=== PATIENT | male | born 1950 | race Caucasian/White ===

== ENCOUNTER 2016-12-02 10:16 | Inpatient (IN) ==
[2016-12-02] MEDS ORDERED: Pantoprazole 80 MG in 0.9 % Sodium Chloride 50 ML IVPB ONE (10:23)
[2016-12-02] MEDS ORDERED: 0.9 % Sodium Chloride 1,000 ML IVC ONE ×2 (10:23→11:08)
[2016-12-02] MEDS ORDERED: Lidocaine -MPF 1% 2 ML VIAL ONE (10:38)
[2016-12-02] MEDS: Pantoprazole 40 MG in 0.9 % Sodium Chloride Mini Bag 100 ML IVC SCH ×3 (11:01→21:12)
--- NOTE | 2016-12-02 11:09 | Emergency Department Note ---
Disposition Clinical Impression: Elevated serum lactate dehydrogenase, Anemia, Hypotension, Transaminitis Disposition: Admitted As Inpatient Condition: Critical General Adult HPI - General Chief complaint: ED GI Bleed Stated complaint: hypotensive, low SPO2 Time Seen by Provider: 12/02/16 10:21 Source: patient, EMS Limitations: no limitations - History of Present Illness Pain Scale: 9 - Related Data Home Medications Medication Instructions Recorded Confirmed Aspirin [Lo-Dose Aspirin EC] 81 mg PO DAILY 12/02/16 12/02/16 Citalopram Hydrobromide [Celexa] 20 mg PO DAILY 12/02/16 12/02/16 Ergocalciferol (VITAMIN D2) 50,000 unit PO QWEEK 12/02/16 12/02/16 [Vitamin D2] Furosemide [Lasix] 20 mg PO DAILY 12/02/16 12/02/16 Metoprolol [Lopressor] 50 mg PO BID 12/02/16 12/02/16 Mirtazapine 7.5 mg PO DAILY 12/02/16 12/02/16 Multivit-Min/FA/Lycopen/Lutein [A 1 tab PO DAILY 12/02/16 12/02/16 Thru Z Select Men 50+ Tablet] Nitroglycerin [Nitrostat] 0.4 mg SL Q5M PRN 12/02/16 12/02/16 Oxycodone HCl [Oxaydo] 5 mg PO TID PRN 12/02/16 12/02/16 Potassium Chloride [K-Tab ER] 20 meq PO BID 12/02/16 12/02/16 Rifaximin [Xifaxan] 550 mg PO BID 12/02/16 12/02/16 Spironolactone [Aldactone] 50 mg PO DAILY 12/02/16 12/02/16 Tamsulosin [Flomax] 0.4 mg PO DAILY 12/02/16 12/02/16 Allergies Allergy/AdvReac Type Severity Reaction Status Date / Time No Known Allergies Allergy Verified 12/02/16 10:38 Past Medical History - Past Medical History Medical history: Reports: non-contributory, cirrhosis Psychiatric history: Reports: no psych history - Social History Smoking Status: Current some day smoker Smokeless Tobacco Status: No Alcohol use: Reports: none Drug use: Reports: none Physical Exam - General Limitations: no limitations General appearance: alert Course Vital Signs Temperature 96.6 F L 12/02/16 10:19 Pulse Rate 139 12/02/16 10:19 Respiratory Rate 26 12/02/16 10:19 Blood Pressure 86/52 12/02/16 10:19 O2 Sat by Pulse Oximetry 85 12/02/16 10:19 Temperature 97.7 F 12/02/16 16:07 Pulse Rate 93 12/02/16 17:00 Respiratory Rate 16 12/02/16 17:00 Blood Pressure 111/70 12/02/16 17:00 O2 Sat by Pulse Oximetry 100 12/02/16 17:00 Oxygen Delivery Oxygen Delivery Non Rebreather Mask Medical Decision Making - Lab Data Result diagrams: 12/02/16 11:48 12/02/16 11:48 Lab Results 12/02/16 12/02/16 12/02/16 Range/Units 11:48 11:48 11:48 WBC 14.6 H (4.3-11.1) K/mcL RBC 2.35 L (4.19-5.50) M/mcL Hgb 6.9 L (12.9-16.9) g/dL Hct 21.9 L (37.5-50.1) % MCV 93.2 (83.0-100.0) fL MCH 29.4 (28.0-33.3) pg MCHC 31.5 L (31.6-35.5) g/dL RDW 15.9 H (11.5-14.5) % Plt Count 273 (140-400) K/mcL MPV 9.5 (9.4-12.4) fL Seg Neutrophils % 84.0 % Lymphocytes % 10.0 % Monocytes % 6.0 % Neutrophils # 12.3 H (1.6-8.9) K/mcL Lymphocytes # 1.5 (0.6-4.6) K/mcL Monocytes # 0.9 (0.0-1.3) K/mcL Smudge Cells Present A (Not Present) Platelet Estimate Normal (Normal) Anisocytosis 2+ A (Not Present) Microcytosis Present A (Not Present) PT 11.7 (9.4-12.1) Seconds INR 1.1 APTT 28.6 (26.0-36.0) Seconds Sodium 144 (136-145) mEq/L Potassium 4.4 (3.5-4.5) mEq/L Chloride 103 (98-109) mEq/L Carbon Dioxide 30 H (19-29) mEq/L BUN 88 H (8-26) mg/dL Creatinine 1.11 (0.72-1.25) mg/dL Est GFR ( Amer) > 60 (> 60) Est GFR (Non-Af Amer) > 60 (> 60) BUN/Creatinine Ratio 79 H (6-26) Glucose 128 H (70-99) mg/dL Calculated Osmolality 327 H (280-300) Lactic Acid (0.5-2.2) mmol/L Calcium 8.5 L (8.6-10.8) mg/dL Total Bilirubin 0.7 (0.2-1.2) mg/dL AST 77 H (5-34) Units/L ALT 70 H (0-55) Units/L Alkaline Phosphatase 288 H (38-126) Units/L Serum Total Protein 3.9 L (6.0-8.3) g/dL Albumin 1.7 L (3.5-5.0) g/dL Globulin 2.2 L (2.4-3.5) g/dL Albumin/Globulin Ratio 0.8 L (1.1-2.2) Lipase < 10 (8-78) Units/L Blood Type Antibody Screen Crossmatch 12/02/16 12/02/16 Range/Units 11:48 11:48 WBC (4.3-11.1) K/mcL RBC (4.19-5.50) M/mcL Hgb (12.9-16.9) g/dL Hct (37.5-50.1) % MCV (83.0-100.0) fL MCH (28.0-33.3) pg MCHC (31.6-35.5) g/dL RDW (11.5-14.5) % Plt Count (140-400) K/mcL MPV (9.4-12.4) fL Seg Neutrophils % % Lymphocytes % % Monocytes % % Neutrophils # (1.6-8.9) K/mcL Lymphocytes # (0.6-4.6) K/mcL Monocytes # (0.0-1.3) K/mcL Smudge Cells (Not Present) Platelet Estimate (Normal) Anisocytosis (Not Present) Microcytosis (Not Present) PT (9.4-12.1) Seconds INR APTT (26.0-36.0) Seconds Sodium (136-145) mEq/L Potassium (3.5-4.5) mEq/L Chloride (98-109) mEq/L Carbon Dioxide (19-29) mEq/L BUN (8-26) mg/dL Creatinine (0.72-1.25) mg/dL Est GFR ( Amer) (> 60) Est GFR (Non-Af Amer) (> 60) BUN/Creatinine Ratio (6-26) Glucose (70-99) mg/dL Calculated Osmolality (280-300) Lactic Acid 4.8 H* (0.5-2.2) mmol/L Calcium (8.6-10.8) mg/dL Total Bilirubin (0.2-1.2) mg/dL AST (5-34) Units/L ALT (0-55) Units/L Alkaline Phosphatase (38-126) Units/L Serum Total Protein (6.0-8.3) g/dL Albumin (3.5-5.0) g/dL Globulin (2.4-3.5) g/dL Albumin/Globulin Ratio (1.1-2.2) Lipase (8-78) Units/L Blood Type A POSITIVE Antibody Screen NEGATIVE Crossmatch See Detail Critical Care Time Critical Care Time: Yes Total Critical Care Time: 45 Attestation: Patient presented as a transfer from the OR with an upper GI bleed and hypotension. Central line placed by the resident physician under my supervision. IV Protonix and IV fluid resuscitation undertaken Attestation Statement - Attestation Attestation: I examined this patient and my medical decision-making was reviewed with the Resident Physician. I agree with the documented findings, disposition and treatment plan as described except to the extent set forth below. [id number]-[id number] time provided Patient arrives as a transfer from the [facility] with an upper GI bleed and hypotension. Poor peripheral access prehospital. Patient required the urgent placement of a triple lumen central catheter under my supervision by the resident physician.
[2016-12-02] MEDS ORDERED: 0.9 % Sodium Chloride 1,000 ML IVC SCH (11:15)
--- NOTE | 2016-12-02 11:57 | Emergency Department Note ---
Disposition Clinical Impression: Elevated serum lactate dehydrogenase, Transaminitis Anemia Qualifiers: Anemia type: unspecified type Qualified Code(s): D64.9 - Anemia, unspecified Hypotension Qualifiers: Hypotension type: other hypotension type Qualified Code(s): I95.89 - Other hypotension Disposition: Admitted As Inpatient Condition: Critical Time of Disposition: 17:57 General Adult HPI - General Chief complaint: ED GI Bleed Stated complaint: hypotensive, low SPO2 Time Seen by Provider: 12/02/16 10:21 Source: patient, EMS Limitations: no limitations Nursing Notes Reviewed: Yes Vital Signs Reviewed: Yes - History of Present Illness HPI Narrative: Mr. Guerin, a 66-year-old male, presents from the [place] [facility] for evaluation of coffee-ground emesis, hypotension, and hypoxia. [facility] and thus placed to intraosseous lines in the bilateral proximal tibia. Patient's blood pressure is 82 systolic on arrival. Patient had hematemesis for the last 3 days. Emesis is described as black fluid with red flecks. Patient is cachectic and frail. History of non-Hodgkin's lymphoma currently not on chemotherapy. History of alcohol-induced hepatic cirrhosis. History previous open heart surgery with sternotomy. ROS: Not obtainable due to acuity of patient's condition. Pain Scale: 9 - Related Data Home Medications Medication Instructions Recorded Confirmed Aspirin [Lo-Dose Aspirin EC] 81 mg PO DAILY 12/02/16 12/02/16 Citalopram Hydrobromide [Celexa] 20 mg PO DAILY 12/02/16 12/02/16 Ergocalciferol (VITAMIN D2) 50,000 unit PO QWEEK 12/02/16 12/02/16 [Vitamin D2] Furosemide [Lasix] 20 mg PO DAILY 12/02/16 12/02/16 Metoprolol [Lopressor] 50 mg PO BID 12/02/16 12/02/16 Mirtazapine 7.5 mg PO DAILY 12/02/16 12/02/16 Multivit-Min/FA/Lycopen/Lutein [A 1 tab PO DAILY 12/02/16 12/02/16 Thru Z Select Men 50+ Tablet] Nitroglycerin [Nitrostat] 0.4 mg SL Q5M PRN 12/02/16 12/02/16 Oxycodone HCl [Oxaydo] 5 mg PO TID PRN 12/02/16 12/02/16 Potassium Chloride [K-Tab ER] 20 meq PO BID 12/02/16 12/02/16 Rifaximin [Xifaxan] 550 mg PO BID 12/02/16 12/02/16 Spironolactone [Aldactone] 50 mg PO DAILY 12/02/16 12/02/16 Tamsulosin [Flomax] 0.4 mg PO DAILY 12/02/16 12/02/16 Allergies Allergy/AdvReac Type Severity Reaction Status Date / Time No Known Allergies Allergy Verified 12/02/16 10:38 Limitations: ROS unobtainable due to patients medical condition Past Medical History - Past Medical History Medical history: Reports: non-contributory, cirrhosis Psychiatric history: Reports: no psych history - Social History Smoking Status: Current some day smoker Smokeless Tobacco Status: No Alcohol use: Reports: none Drug use: Reports: none Physical Exam Vital Signs Reviewed General: Patient is alert, oriented, and in acute distress. Patient is frail and skeletonized, cachectic, appears older than stated age. HEENT: No facial asymmetry. Head is normocephalic and atraumatic. Oral mucosa dry. Goatee and teeth are stained black consistent with hematemesis. Bilateral radial and posterior tibial pulses 2/4 and equal. Cardiovascular: Heart regular rate and rhythm without clicks, rubs, gallops, or murmurs. No JVD. PMI nondisplaced. Respiratory: Symmetric chest rise with poor respiratory effort. Bilateral breath sounds are diminished. Abdomen: Scaphoid. Bowel sounds present normoactive. Abdomen is nondistended and nontender. No organomegaly noted. Neuro: GCS 15. Psych: Patient's affect is appropriate for situation. - General Limitations: no limitations General appearance: alert Course Course Narrative: The patient arrives via EMS hypoxic and hypotensive. He was placed on nonrebreather where his O2 saturation responded to the mid 90s. He has 2 [facility]. Our staff was unable to place peripheral lines. We utilized the intraosseous lines central venous line was placed. Verbal and written permission was obtained from the patient. Patient's son is bedside and relays a history of [place] status post CABG as well as alcohol induced cirrhosis as well as non-Hodgkin's lymphoma; both non-Hodgkin's lymphoma and hepatic cirrhosis are being currently worked up. Patient is full code. Right internal jugular venous catheter placed under ultrasound guidance. Patient's blood pressure responded nicely to 2-3 L normal saline bolus. No indication at this time for norepinephrine. Patient has elevated lactate. We will continue IV fluids. Patient has anemia with hemoglobin 6.9. Consent for transfusion obtained from the patient and his son. Will order 2 units. Recommend the patient be admitted to the intensive care unit. Attending spoke with Dr. Villalobos who agrees; patient is admitted to the ICU. Vital Signs Temperature 96.6 F L 12/02/16 10:19 Pulse Rate 139 12/02/16 10:19 Respiratory Rate 26 12/02/16 10:19 Blood Pressure 86/52 12/02/16 10:19 O2 Sat by Pulse Oximetry 85 12/02/16 10:19 Temperature 97.7 F 12/02/16 16:07 Pulse Rate 93 12/02/16 17:00 Respiratory Rate 16 12/02/16 17:00 Blood Pressure 111/70 12/02/16 17:00 O2 Sat by Pulse Oximetry 100 12/02/16 17:00 Oxygen Delivery Oxygen Delivery Non Rebreather Mask Medical Decision Making - Lab Data Result diagrams: 12/02/16 11:48 12/02/16 11:48 Lab Results 12/02/16 12/02/16 12/02/16 Range/Units 11:48 11:48 11:48 WBC 14.6 H (4.3-11.1) K/mcL RBC 2.35 L (4.19-5.50) M/mcL Hgb 6.9 L (12.9-16.9) g/dL Hct 21.9 L (37.5-50.1) % MCV 93.2 (83.0-100.0) fL MCH 29.4 (28.0-33.3) pg MCHC 31.5 L (31.6-35.5) g/dL RDW 15.9 H (11.5-14.5) % Plt Count 273 (140-400) K/mcL MPV 9.5 (9.4-12.4) fL Seg Neutrophils % 84.0 % Lymphocytes % 10.0 % Monocytes % 6.0 % Neutrophils # 12.3 H (1.6-8.9) K/mcL Lymphocytes # 1.5 (0.6-4.6) K/mcL Monocytes # 0.9 (0.0-1.3) K/mcL Smudge Cells Present A (Not Present) Platelet Estimate Normal (Normal) Anisocytosis 2+ A (Not Present) Microcytosis Present A (Not Present) PT 11.7 (9.4-12.1) Seconds INR 1.1 APTT 28.6 (26.0-36.0) Seconds Sodium 144 (136-145) mEq/L Potassium 4.4 (3.5-4.5) mEq/L Chloride 103 (98-109) mEq/L Carbon Dioxide 30 H (19-29) mEq/L BUN 88 H (8-26) mg/dL Creatinine 1.11 (0.72-1.25) mg/dL Est GFR ( Amer) > 60 (> 60) Est GFR (Non-Af Amer) > 60 (> 60) BUN/Creatinine Ratio 79 H (6-26) Glucose 128 H (70-99) mg/dL Calculated Osmolality 327 H (280-300) Lactic Acid (0.5-2.2) mmol/L Calcium 8.5 L (8.6-10.8) mg/dL Total Bilirubin 0.7 (0.2-1.2) mg/dL AST 77 H (5-34) Units/L ALT 70 H (0-55) Units/L Alkaline Phosphatase 288 H (38-126) Units/L Serum Total Protein 3.9 L (6.0-8.3) g/dL Albumin 1.7 L (3.5-5.0) g/dL Globulin 2.2 L (2.4-3.5) g/dL Albumin/Globulin Ratio 0.8 L (1.1-2.2) Lipase < 10 (8-78) Units/L Blood Type Antibody Screen Crossmatch 12/02/16 12/02/16 Range/Units 11:48 11:48 WBC (4.3-11.1) K/mcL RBC (4.19-5.50) M/mcL Hgb (12.9-16.9) g/dL Hct (37.5-50.1) % MCV (83.0-100.0) fL MCH (28.0-33.3) pg MCHC (31.6-35.5) g/dL RDW (11.5-14.5) % Plt Count (140-400) K/mcL MPV (9.4-12.4) fL Seg Neutrophils % % Lymphocytes % % Monocytes % % Neutrophils # (1.6-8.9) K/mcL Lymphocytes # (0.6-4.6) K/mcL Monocytes # (0.0-1.3) K/mcL Smudge Cells (Not Present) Platelet Estimate (Normal) Anisocytosis (Not Present) Microcytosis (Not Present) PT (9.4-12.1) Seconds INR APTT (26.0-36.0) Seconds Sodium (136-145) mEq/L Potassium (3.5-4.5) mEq/L Chloride (98-109) mEq/L Carbon Dioxide (19-29) mEq/L BUN (8-26) mg/dL Creatinine (0.72-1.25) mg/dL Est GFR ( Amer) (> 60) Est GFR (Non-Af Amer) (> 60) BUN/Creatinine Ratio (6-26) Glucose (70-99) mg/dL Calculated Osmolality (280-300) Lactic Acid 4.8 H* (0.5-2.2) mmol/L Calcium (8.6-10.8) mg/dL Total Bilirubin (0.2-1.2) mg/dL AST (5-34) Units/L ALT (0-55) Units/L Alkaline Phosphatase (38-126) Units/L Serum Total Protein (6.0-8.3) g/dL Albumin (3.5-5.0) g/dL Globulin (2.4-3.5) g/dL Albumin/Globulin Ratio (1.1-2.2) Lipase (8-78) Units/L Blood Type A POSITIVE Antibody Screen NEGATIVE Crossmatch See Detail
[2016-12-02 11:59] LABS: Hematocrit 21.9 % (37.5-50.1); INR 1.1; Mean Corpuscular HGB Conc 31.5 g/dL (31.6-35.5); Mean Corpuscular Hemoglobin 29.4 pg (28.0-33.3); Mean Corpuscular Volume 93.2 fL (83.0-100.0); Mean Platelet Volume 9.5 fL (9.4-12.4); Platelet Count 273 K/mcL (140-400); Prothrombin Time 11.7 Seconds (9.4-12.1); Red Blood Count 2.35 M/mcL (4.19-5.50); Red Cell Distribution Width 15.9 % (11.5-14.5)
[2016-12-02 12:02] LABS: Activated Partial Thrombo Time 28.6 Seconds (26.0-36.0)
[2016-12-02 12:10] LABS: Alanine Aminotransferase 70 Units/L (0-55); Albumin 1.7 g/dL (3.5-5.0); Albumin/Globulin Ratio 0.8 (1.1-2.2); Alkaline Phosphatase 288 Units/L (38-126); Aspartate Amino Transferase 77 Units/L (5-34); BUN/Creatinine Ratio 79 (6-26); Bilirubin,Total 0.7 mg/dL (0.2-1.2); Blood Urea Nitrogen 88 mg/dL (8-26); Calcium 8.5 mg/dL (8.6-10.8); Carbon Dioxide 30 mEq/L (19-29); Chloride 103 mEq/L (98-109); Globulin 2.2 g/dL (2.4-3.5); Glucose 128 mg/dL (70-99); Lipase < 10 Units/L (8-78); Osmolality,Calculated 327 (280-300); Potassium 4.4 mEq/L (3.5-4.5); Sodium 144 mEq/L (136-145); Total Protein 3.9 g/dL (6.0-8.3); eGFR For African Americans > 60 (> 60); eGFR For Non-African Americans > 60 (> 60)
[2016-12-02 12:11] LABS: Hemoglobin 6.9 g/dL (12.9-16.9)
[2016-12-02 12:21] LABS: Anisocytosis 2+ (Not Present); Lymphocytes # 1.5 K/mcL (0.6-4.6); Monocytes # 0.9 K/mcL (0.0-1.3); Neutrophils # 12.3 K/mcL (1.6-8.9)
[2016-12-02 12:22] LABS: Microcytosis Present (Not Present); Platelet Estimate Normal (Normal); Smudge Cells Present (Not Present)
--- NOTE | 2016-12-02 12:49 | Pulmonology History & Physical ---
<Danika Mcleod - Last Filed: 12/02/16 13:39> Date of Encounter: 12/02/16 Time of Encounter: 12:30 Assessment and Plan (1) GI bleed Current visit: Yes Status: Acute Patient has 3 day history of coffee ground emesis and hypotension. Surgery has been consulted and they have agreed to scope the patient today. Will continue to give fluids and 2 units PRBCs to maintain BP until site of bleeding can be determined by endoscopy later today. Qualifiers: GI bleed type/associated pathology: unspecified gastrointestinal hemorrhage type Qualified Code(s): K92.2 - Gastrointestinal hemorrhage, unspecified (2) Hypotension Current visit: Yes Status: Acute When the patient arrived to the ED his systolic BP was in the 80s. After aggressive fluid resuscitation and blood products his BP is stable and MAP is in the 70s at this time. Continue to assess need for pressors. Assuming this will self correct once fluid resuscitation is completed and patient's HgB normalizes. Qualifiers: Hypotension type: other hypotension type Qualified Code(s): I95.89 - Other hypotension (3) DVT prophylaxis Current visit: Yes Status: Acute Patient actively bleeding therefore heparin is contraindicated. Will apply SCDs. History of Present Illness Chief complaint: GI Bleed/Hypotension HPI: Mr. Guerin is a 66 year old male who presented as a transfer from the [place] with an upper GI bleed and hypotension. According to his son, the patient started having dark colored emesis episodes on Friday. Patient had been complaining of lightheadedness and hypotension at home. Has had >5 episodes of dark colored emesis since Friday. Patient also states he has lost over 50 pounds in the past 6 months and is constantly cold. History of non-Hodgkin's lymphoma currently not on chemotherapy. History of alcohol-induced hepatic cirrhosis. History previous open heart surgery with sternotomy. Patient denies chest pain/ SOB/hematuria or blood per rectum. No history of GI bleeds in the past. Denies abdominal pain. Patient [place] and is being followed by an oncologist on the blue team in [place] but does not have a specific physician to follow up with. Patient was on treatment for his NHL until approximately 8 weeks ago. Patient had an episode of ascited and hepatic encephalopathy 6 weeks ago and a biopsy was completed of the liver but the results are not completed yet. Past Med Surg Social Fam HX - Past Medical History Medical history: non-contributory, cirrhosis Psychiatric history: no psych history - Social History Smoking Status: Current some day smoker Smokeless Tobacco Status: No Alcohol use: none Drug use: none Medications and Allergies Aspirin [Lo-Dose Aspirin EC] 81 mg PO DAILY 12/02/16 [History] Citalopram Hydrobromide [Celexa] 20 mg PO DAILY 12/02/16 [History] Ergocalciferol (VITAMIN D2) [Vitamin D2] 50,000 unit PO QWEEK 12/02/16 [History] Furosemide [Lasix] 20 mg PO DAILY 12/02/16 [History] Metoprolol [Lopressor] 50 mg PO BID 12/02/16 [History] Mirtazapine 7.5 mg PO DAILY 12/02/16 [History] Multivit-Min/FA/Lycopen/Lutein [A Thru Z Select Men 50+ Tablet] 1 tab PO DAILY 12/02/16 [History] Nitroglycerin [Nitrostat] 0.4 mg SL Q5M PRN 12/02/16 [History] Oxycodone HCl [Oxaydo] 5 mg PO TID PRN 12/02/16 [History] Potassium Chloride [K-Tab ER] 20 meq PO BID 12/02/16 [History] Rifaximin [Xifaxan] 550 mg PO BID 12/02/16 [History] Spironolactone [Aldactone] 50 mg PO DAILY 12/02/16 [History] Tamsulosin [Flomax] 0.4 mg PO DAILY 12/02/16 [History] 3 Allergy/AdvReac Type Severity Reaction Status Date / Time No Known Allergies Allergy Verified 12/02/16 10:38 All Systems: A 10-system review of systems was performed and is negative for pertinent findings except as documented above in the HPI. - Constitutional Constitutional: anorexia, chills, weight loss - EENT Eyes: as per HPI Ears: as per HPI Nose, mouth and throat: as per HPI - Cardiovascular Cardiovascular: dyspnea, dyspnea on exertion, lightheadedness, no chest pain, no chest pain at rest, no chest pain with activity, no edema - Respiratory Respiratory: cough, dyspnea on exertion, no hemoptysis, no wheezing, no pain on inspirtation - Gastrointestinal Gastrointestinal: hematemesis, no abdominal pain, no cramping, no diarrhea, no melena - Genitourinary Genitourinary: no hematuria, no urinary frequency, no urinary incontinence, no urinary urgency - Musculoskeletal Musculoskeletal: weakness, muscle weakness, no back pain, no joint swelling - Integumentary Integumentary: no rash, no jaundice - Neurological Neurological: no abnormal movements, no abnormal speech, no convulsions, no headache(s) - Psychiatric Psychiatric: as per HPI - Endocrine Endocrine: as per HPI - Hematologic/Lymphatic Hematologic/Lymphatic: as per HPI - Allergic/Immunologic Allergic/Immunologic: as per HPI Physical Examination General appearance: other (cachectic appearning male in mild distress) Eyes: nonicteric ENT: other (dried coffee ground blood around his mouth) Neck: supple, no lymphadenopathy, no JVD Effort: mildly labored Inspection: normal Auscultation: bilateral: clear Cardiovascular: regular rate and rhythm Gastrointestinal: normoactive bowel sounds, soft, non-tender, non-distended Integumentary: normal Extremities: no cyanosis, pulses normal, cool Musculoskeletal: no deformities Gait: normal posture normal mental status, non-focal exam mood appropriate, affect normal Results - Laboratory Findings CBC and BMP: 12/02/16 11:48 12/02/16 11:48 PT/INR, D-dimer PT 11.7 Seconds (9.4-12.1) 12/02/16 11:48 Abnormal lab findings: Abnormal lab results WBC 14.6 K/mcL (4.3-11.1) H 12/02/16 11:48 RBC 2.35 M/mcL (4.19-5.50) L 12/02/16 11:48 Hgb 6.9 g/dL (12.9-16.9) L 12/02/16 11:48 Hct 21.9 % (37.5-50.1) L 12/02/16 11:48 MCHC 31.5 g/dL (31.6-35.5) L 12/02/16 11:48 RDW 15.9 % (11.5-14.5) H 12/02/16 11:48 Neutrophils # 12.3 K/mcL (1.6-8.9) H 12/02/16 11:48 Smudge Cells Present (Not Present) A 12/02/16 11:48 Anisocytosis 2+ (Not Present) A 12/02/16 11:48 Microcytosis Present (Not Present) A 12/02/16 11:48 Carbon Dioxide 30 mEq/L (19-29) H 12/02/16 11:48 BUN 88 mg/dL (8-26) H 12/02/16 11:48 BUN/Creatinine Ratio 79 (6-26) H 12/02/16 11:48 Glucose 128 mg/dL (70-99) H 12/02/16 11:48 Calculated Osmolality 327 (280-300) H 12/02/16 11:48 Lactic Acid 4.8 mmol/L (0.5-2.2) H* 12/02/16 11:48 Calcium 8.5 mg/dL (8.6-10.8) L 12/02/16 11:48 AST 77 Units/L (5-34) H 12/02/16 11:48 ALT 70 Units/L (0-55) H 12/02/16 11:48 Alkaline Phosphatase 288 Units/L (38-126) H 12/02/16 11:48 Serum Total Protein 3.9 g/dL (6.0-8.3) L 12/02/16 11:48 Albumin 1.7 g/dL (3.5-5.0) L 12/02/16 11:48 Globulin 2.2 g/dL (2.4-3.5) L 12/02/16 11:48 Albumin/Globulin Ratio 0.8 (1.1-2.2) L 12/02/16 11:48 - Diagnostic Findings Chest x-ray: report reviewed, image reviewed <Landon Villalobos - Last Filed: 12/02/16 21:50> Date of Encounter: 12/02/16 History of Present Illness HPI: Mr. Guerin is a 66 year old male All Systems: A 10-system review of systems was performed and is negative for pertinent findings except as documented above in the HPI. Physical Examination Vital Signs: Vital Signs, Last 4 Hours Temp Pulse Resp BP Pulse Ox 12/02/16 16:07 97.7 F 12/02/16 15:05 92 22 99/65 99 12/02/16 14:57 98 F 93 22 99/65 96 12/02/16 14:42 97.6 F 93 22 113/67 99 12/02/16 14:34 97.6 F 90 20 113/67 99 12/02/16 14:05 97.7 F 93 21 121/56 96 12/02/16 14:02 93 12/02/16 13:45 97.9 F 92 22 127/69 95 12/02/16 13:30 97.7 F 94 18 111/63 90 12/02/16 12:49 22 135/58 Results - Laboratory Findings CBC and BMP: 12/02/16 18:45 12/02/16 11:48 PT/INR, D-dimer PT 11.7 Seconds (9.4-12.1) 12/02/16 11:48 Abnormal lab findings: Abnormal lab results WBC 14.6 K/mcL (4.3-11.1) H 12/02/16 11:48 RBC 2.35 M/mcL (4.19-5.50) L 12/02/16 11:48 Hgb 6.9 g/dL (12.9-16.9) L 12/02/16 11:48 Hct 21.9 % (37.5-50.1) L 12/02/16 11:48 MCHC 31.5 g/dL (31.6-35.5) L 12/02/16 11:48 RDW 15.9 % (11.5-14.5) H 12/02/16 11:48 Neutrophils # 12.3 K/mcL (1.6-8.9) H 12/02/16 11:48 Smudge Cells Present (Not Present) A 12/02/16 11:48 Anisocytosis 2+ (Not Present) A 12/02/16 11:48 Microcytosis Present (Not Present) A 12/02/16 11:48 Carbon Dioxide 30 mEq/L (19-29) H 12/02/16 11:48 BUN 88 mg/dL (8-26) H 12/02/16 11:48 BUN/Creatinine Ratio 79 (6-26) H 12/02/16 11:48 Glucose 128 mg/dL (70-99) H 12/02/16 11:48 POC Glucose 92 (58-89) H 12/02/16 16:00 Calculated Osmolality 327 (280-300) H 12/02/16 11:48 Lactic Acid 4.8 mmol/L (0.5-2.2) H* 12/02/16 11:48 Calcium 8.5 mg/dL (8.6-10.8) L 12/02/16 11:48 AST 77 Units/L (5-34) H 12/02/16 11:48 ALT 70 Units/L (0-55) H 12/02/16 11:48 Alkaline Phosphatase 288 Units/L (38-126) H 12/02/16 11:48 Serum Total Protein 3.9 g/dL (6.0-8.3) L 12/02/16 11:48 Albumin 1.7 g/dL (3.5-5.0) L 12/02/16 11:48 Globulin 2.2 g/dL (2.4-3.5) L 12/02/16 11:48 Albumin/Globulin Ratio 0.8 (1.1-2.2) L 12/02/16 11:48 - Attending Attestation I examined this patient and my medical decision-making was reviewed with the Resident Physician. I agree with the documented findings, disposition and treatment plan as described except to the extent set forth below. Patient seen and examined. Labs, radiology, chart personally reviewed. Agree with resident's history and physical, assessment, plan with following comments: CORRECTIONAL AGENCY DIRECTOR: Patient follows commands, Pulmonary: Acceptable oxygenation and ventilation. Patient with acute hypoxic respiratory failure and to wean off FiO2 to keep SPO2 around 90% Cardiovascular: Patient with history of CABG and his EKG shows evidence of ST changes which I am not sure those are new or not for that reason we will check troponin level. Hypertension is most likely from blood loss and patient will have blood transfusion due to his hypertension cannot give him beta blockers. GI: Nutrition per dietary and GI prophylaxis per routine. Patient on PPI and plan for endoscopy. With history of non-Hodgkin lymphoma present possibility can involve no organs. Patient with history of liver cirrhosis, however this has not been confirmed and we will hold medication for now except Lasix and blood pressure stable since he will receive blood transfusion and concern about volume overload. Heme: DVT prophylaxis per routine. May consider hematology consultation and on a mechanical DVT prophylaxis due to acute anemia secondary to blood loss. ID: Normal evidence of infection Renal; urine out put and renal funtion reviewed Endorcine: blood glucose is monitored Lines: all lines checked and no evidence of infections. Remove IO lines. Skin: skin care to prevent pressure ulcers per nursing routine care Patient remain tenuous and his condition could deteriorate for that reason I agree with the ER physician to keep him in ICU for now. Patient was seen in emergency room and discussed with the ER physician and in the ICU. I spent 35 min of Critical Care time with this patient. It involved decision making of high complexity to assess, manipulate, and support vital organ system failure and/or to prevent further life threatening deterioration of the patient' s condition. The time involved in the performance of separately reportable procedures was not counted toward critical care time.
--- NOTE | 2016-12-02 14:08 | General Surgery Consult Note ---
<Zulma Maldonado - Last Filed: 12/02/16 14:28> Date of Encounter: 12/02/16 Time of Encounter: 14:00 Assessment and Plan (1) GI bleed Current Visit: Yes Status: Acute NPO IV fluids Protonix gtt initiated in ED Carafate QID Plan for EGD with Dr. Blanca in the next 24 hours Risks, benefits, alternatives and expected outcomes reviewed with the patient and his son and they are in agreement to proceed Monitor Hgb/Hct Check for H. Pylori Qualifiers: GI bleed type/associated pathology: unspecified gastrointestinal hemorrhage type Qualified Code(s): K92.2 - Gastrointestinal hemorrhage, unspecified (2) Non-Hodgkin lymphoma Current Visit: Yes Status: Chronic Management per [facility] Last treatment was in September of 2016 Qualifiers: Non-Hodgkin lymphoma type: unspecified type Lymphoma site: unspecified region Qualified Code(s): C85.90 - Non-Hodgkin lymphoma, unspecified, unspecified site (3) CAD (coronary artery disease) Current Visit: Yes Status: Chronic Qualifiers: Coronary Disease-Associated Artery/Lesion type: unspecified vessel or lesion type [place] vs. transplanted heart: [place] heart Associated angina: angina presence unspecified Qualified Code(s): I25.10 - Atherosclerotic heart disease of [place] coronary artery without angina pectoris (4) Acute blood loss anemia Current Visit: Yes Status: Acute Monitor Hgb/Hct Support with PRBC as necessary History of Present Illness Consult date: 12/02/16 Reason for consult: endoscopy Requesting physician: Ignacio Whipple History of present illness: Mr. Guerin is a 66 year old male who presented to the ED from the [facility] with complaints of coffee ground emesis and hypotension. His son is present in the room and assists with answering questions for the HPI. He states that he vomited coffee ground emesis for the first time on Friday evening (2 days ago). He has vomited 5 times total and reports a large amount of dark red emesis. He has never experienced anything like this in the past. He reports generalized abdominal discomfort. Reports loss of appetite. He does report a 65 lb. weight loss over the last 18 months. He does have a recent history of lymphoma and states that he received his last treatment around September of 2016. He denies any changes in bowel habits. He states that his last bowel movement was on Friday and was normal consistency and color (brown). He reports feeling fatigued, weak and dizzy at times. Denies fevers but admits to chills. He is unsure whether he has ever had an endoscopy (upper or lower) in the past. His son does not think that he has ever had endoscopy procedures. His son recently relocated him from [place] due to his father's inability to care for himself and lack of healthcare resources/insurance. The patient denies chronic use of NSAIDS, ASA or anticoagulation. He did take 400mg of ibuprofen on Friday X 1 after a fall at home. He does have a history of alcohol use but his last drink was in January 2016. He has recently had a liver biopsy (6 weeks ago) while still living in [place]. The patient's son said that he has called and the results are still pending at this time (specimen was sent out to the [facility]). He was noted to have a hgb of 6.9 on initial evaluation at [facility]. We have been asked to see and evaluate him for endoscopic evaluation. Past Med Surg Social Fam HX - Past Medical History Source: patient, old records reviewed Medical history: cancer (Hodgkin's lymphoma), cirrhosis (liver), coronary artery disease, hypertension, other (alcohol abuse (last drink 01/2016)) Psychiatric history: no psych history - Past Surgical History Surgical History: coronary bypass (CABG), other (liver biopsy, neck surgery) - Social History Smoking Status: Current some day smoker Smokeless Tobacco Status: No Alcohol use: none Drug use: none Medications and Allergies Aspirin [Lo-Dose Aspirin EC] 81 mg PO DAILY 12/02/16 [History] Citalopram Hydrobromide [Celexa] 20 mg PO DAILY 12/02/16 [History] Ergocalciferol (VITAMIN D2) [Vitamin D2] 50,000 unit PO QWEEK 12/02/16 [History] Furosemide [Lasix] 20 mg PO DAILY 12/02/16 [History] Metoprolol [Lopressor] 50 mg PO BID 12/02/16 [History] Mirtazapine 7.5 mg PO DAILY 12/02/16 [History] Multivit-Min/FA/Lycopen/Lutein [A Thru Z Select Men 50+ Tablet] 1 tab PO DAILY 12/02/16 [History] Nitroglycerin [Nitrostat] 0.4 mg SL Q5M PRN 12/02/16 [History] Oxycodone HCl [Oxaydo] 5 mg PO TID PRN 12/02/16 [History] Potassium Chloride [K-Tab ER] 20 meq PO BID 12/02/16 [History] Rifaximin [Xifaxan] 550 mg PO BID 12/02/16 [History] Spironolactone [Aldactone] 50 mg PO DAILY 12/02/16 [History] Tamsulosin [Flomax] 0.4 mg PO DAILY 12/02/16 [History] 3 Allergy/AdvReac Type Severity Reaction Status Date / Time No Known Allergies Allergy Verified 12/02/16 10:38 Review of Systems All systems PM: reviewed and no additional remarkable complaints except as stated (in the HPI) All systems PM: A 10-system review of systems was performed and is negative for pertinent findings except as documented above in the HPI. General Surgery Exam Initial Vital Signs Temp Pulse Resp BP Pulse Ox 96.6 F L 139 26 86/52 85 12/02/16 10:19 12/02/16 10:19 12/02/16 10:19 12/02/16 10:12/02/16 10:19 - General physical appearance well developed, moderate distress, chronically ill - Eyes PERRL, normal ocular movement - ENT dry mucosa (with dried blood noted around mouth), atraumatic, normocephalic - Neck trachea midline - Respiratory normal respiratory effort, clear to auscultation - Cardiovascular Cardiovascular exam: Present: RRR - Abdomen Abdomen general surgery: Present: bowel sounds present, soft, non tender - Integumentary Integumentary general surgery: Present: warm and dry - Neurologic Present: CN 2-12 grossly intact - Psychiatric Psychiatric general surgery: Present: A&Ox3, speech is normal Exam Initial Vital Signs Temp Pulse Resp BP Pulse Ox 96.6 F L 139 26 86/52 85 12/02/16 10:19 12/02/16 10:19 12/02/16 10:19 12/02/16 10:19 12/02/16 10:19 Results - Labs 12/02/16 11:48 12/02/16 11:48 Abnormal lab results WBC 14.6 K/mcL (4.3-11.1) H 12/02/16 11:48 RBC 2.35 M/mcL (4.19-5.50) L 12/02/16 11:48 Hgb 6.9 g/dL (12.9-16.9) L 12/02/16 11:48 Hct 21.9 % (37.5-50.1) L 12/02/16 11:48 MCHC 31.5 g/dL (31.6-35.5) L 12/02/16 11:48 RDW 15.9 % (11.5-14.5) H 12/02/16 11:48 Neutrophils # 12.3 K/mcL (1.6-8.9) H 12/02/16 11:48 Smudge Cells Present (Not Present) A 12/02/16 11:48 Anisocytosis 2+ (Not Present) A 12/02/16 11:48 Microcytosis Present (Not Present) A 12/02/16 11:48 Carbon Dioxide 30 mEq/L (19-29) H 12/02/16 11:48 BUN 88 mg/dL (8-26) H 12/02/16 11:48 BUN/Creatinine Ratio 79 (6-26) H 12/02/16 11:48 Glucose 128 mg/dL (70-99) H 12/02/16 11:48 Calculated Osmolality 327 (280-300) H 12/02/16 11:48 Lactic Acid 4.8 mmol/L (0.5-2.2) H* 12/02/16 11:48 Calcium 8.5 mg/dL (8.6-10.8) L 12/02/16 11:48 AST 77 Units/L (5-34) H 12/02/16 11:48 ALT 70 Units/L (0-55) H 12/02/16 11:48 Alkaline Phosphatase 288 Units/L (38-126) H 12/02/16 11:48 Serum Total Protein 3.9 g/dL (6.0-8.3) L 12/02/16 11:48 Albumin 1.7 g/dL (3.5-5.0) L 12/02/16 11:48 Globulin 2.2 g/dL (2.4-3.5) L 12/02/16 11:48 Albumin/Globulin Ratio 0.8 (1.1-2.2) L 12/02/16 11:48 All other labs normal. - Imaging Additional studies: Chest X-Ray 12/02/16 10:38 IMPRESSION: Right central venous catheter tip overlies the SVC, without pneumothorax. D/ / 12/02/2016 11:27:44 Brayan Greene MD / alonso Interpreting Provider: Brayan Greene MD Consult Discharge Plan - Plan [facility]Primary Care Provider[facility] - - Attending Attestation For this encounter, I have reviewed the LEAD TINNER or PA documentation, treatment plan, and medical decision making; and I have had face to face time with this patient. <LoanAminta delgado L - Last Filed: 12/03/16 11:35> Date of Encounter: 12/02/16 Assessment and Plan (1) Acute blood loss anemia Current Visit: Yes Status: Acute (2) GI bleed Current Visit: Yes Status: Acute Qualifiers: GI bleed type/associated pathology: unspecified gastrointestinal hemorrhage type Qualified Code(s): K92.2 - Gastrointestinal hemorrhage, unspecified History of Present Illness History of present illness: Patients son was not present when I went by to see patient, patient was confused and unable to appropriately answer any questions Review of Systems All systems PM: A 10-system review of systems was performed and is negative for pertinent findings except as documented above in the HPI. General Surgery Exam Initial Vital Signs Temp Pulse Resp BP Pulse Ox 96.6 F L 139 26 86/52 85 12/02/16 10:19 12/02/16 10:19 12/02/16 10:19 12/02/16 10:19 12/02/16 10:19 - General physical appearance well developed, moderate distress, chronically ill - Eyes PERRL, normal ocular movement - ENT dry mucosa, atraumatic - Neck trachea midline - Respiratory normal expansion - Cardiovascular Cardiovascular exam: Present: RRR - Abdomen Abdomen general surgery: Present: bowel sounds present, soft, non tender - Integumentary Integumentary general surgery: Present: warm and dry - Neurologic Present: CN 2-12 grossly intact - Musculoskeletal Present: normal posture, other (generalized deconditioning) - Psychiatric Psychiatric general surgery: Present: oriented to person, other (confused) Exam Initial Vital Signs Temp Pulse Resp BP Pulse Ox 96.6 F L 139 26 86/52 85 12/02/16 10:19 12/02/16 10:19 12/02/16 10:19 12/02/16 10:19 12/02/16 10:19 Results - Labs 12/03/16 04:11 12/03/16 04:11 Abnormal lab results WBC 15.3 K/mcL (4.3-11.1) H 12/03/16 04:11 RBC 3.25 M/mcL (4.19-5.50) L 12/03/16 04:11 Hgb 9.3 g/dL (12.9-16.9) L 12/03/16 04:11 Hct 28.7 % (37.5-50.1) L 12/03/16 04:11 RDW 16.6 % (11.5-14.5) H 12/03/16 04:11 Band Neutrophils % 6.0 % (0-4) H 12/03/16 04:11 Neutrophils # 14.4 K/mcL (1.6-8.9) H 12/03/16 04:11 Smudge Cells Present (Not Present) A 12/02/16 11:48 Dohle Bodies Present (Not Present) A 12/02/16 18:45 Hypochromasia Present (Not Present) A 12/02/16 18:45 Anisocytosis 2+ (Not Present) A 12/02/16 11:48 Microcytosis Present (Not Present) A 12/02/16 11:48 Sodium 148 mEq/L (136-145) H 12/03/16 04:11 Chloride 110 mEq/L (98-109) H 12/03/16 04:11 BUN 60 mg/dL (8-26) H D 12/03/16 04:11 BUN/Creatinine Ratio 72 (6-26) H 12/03/16 04:11 POC Glucose 92 (58-89) H 12/02/16 16:00 Calculated Osmolality 322 (280-300) H 12/03/16 04:11 Total Bilirubin 1.3 mg/dL (0.2-1.2) H D 12/03/16 04:11 AST 102 Units/L (5-34) H 12/03/16 04:11 ALT 79 Units/L (0-55) H 12/03/16 04:11 Alkaline Phosphatase 274 Units/L (38-126) H 12/03/16 04:11 Troponin I 0.50 ng/mL (0-0.03) H* 12/03/16 06:42 Serum Total Protein 4.1 g/dL (6.0-8.3) L 12/03/16 04:11 Albumin 1.8 g/dL (3.5-5.0) L 12/03/16 04:11 Globulin 2.3 g/dL (2.4-3.5) L 12/03/16 04:11 Albumin/Globulin Ratio 0.8 (1.1-2.2) L 12/03/16 04:11 Diabetes panel 12/03/16 Range/Units 04:11 Sodium 148 H (136-145) mEq/L Potassium 3.7 (3.5-4.5) mEq/L Chloride 110 H (98-109) mEq/L Carbon Dioxide 28 (19-29) mEq/L BUN 60 H D (8-26) mg/dL Creatinine 0.83 (0.72-1.25) mg/dL Glucose 77 (70-99) mg/dL Calcium 8.8 (8.6-10.8) mg/dL AST 102 H (5-34) Units/L ALT 79 H (0-55) Units/L Alkaline Phosphatase 274 H (38-126) Units/L Albumin 1.8 L (3.5-5.0) g/dL Calcium panel 12/03/16 Range/Units 04:11 Calcium 8.8 (8.6-10.8) mg/dL Albumin 1.8 L (3.5-5.0) g/dL Pituitary panel 12/03/16 Range/Units 04:11 Sodium 148 H (136-145) mEq/L Potassium 3.7 (3.5-4.5) mEq/L Chloride 110 H (98-109) mEq/L Carbon Dioxide 28 (19-29) mEq/L BUN 60 H D (8-26) mg/dL Creatinine 0.83 (0.72-1.25) mg/dL Glucose 77 (70-99) mg/dL Calcium 8.8 (8.6-10.8) mg/dL Adrenal panel 09/12/17 Range/Units 04:11 Sodium 148 H (136-145) mEq/L Potassium 3.7 (3.5-4.5) mEq/L Chloride 110 H (98-109) mEq/L Carbon Dioxide 28 (19-29) mEq/L BUN 60 H D (8-26) mg/dL Creatinine 0.83 (0.72-1.25) mg/dL Glucose 77 (70-99) mg/dL Calcium 8.8 (8.6-10.8) mg/dL Total Bilirubin 1.3 H D (0.2-1.2) mg/dL AST 102 H (5-34) Units/L ALT 79 H (0-55) Units/L Alkaline Phosphatase 274 H (38-126) Units/L Albumin 1.8 L (3.5-5.0) g/dL All other labs normal. - Attending Attestation I have personally performed a face to face evaluation on this patient. I have reviewed and agree with the care plan. History and Exam by me shows:
[2016-12-02] MEDS ORDERED: Furosemide 20 MG/2 ML VIAL IVP ONE (15:35)
[2016-12-02] MEDS ORDERED: Tetracaine/Benzocaine/Butamben 200MG/SPRAY (100SPY/BOT) MM ONE (16:39)
[2016-12-02] MEDS ORDERED: *HR* Promethazine 25 MG/ML VIAL IVP ONE (16:39)
[2016-12-02] MEDS ORDERED: *HR* Midazolam HCl 5 MG/5 ML VIAL IVP PRN (16:39)
[2016-12-02] MEDS ORDERED: Simethicone 40 MG/0.6 ML MLS IR ONE (16:39)
[2016-12-02] MEDS ORDERED: *HR* FentaNYL (PF) 100 MCG/2 ML VIAL IVP PRN (16:39)
[2016-12-02] MEDS ORDERED: *HR* Midazolam HCl 5 MG/5 ML VIAL IVP ONE (16:41)
[2016-12-02] MEDS ORDERED: *HR* FentaNYL (PF) 100 MCG/2 ML VIAL ONE (16:42)
[2016-12-02] MEDS ORDERED: *HR* FentaNYL (PF) 100 MCG/2 ML VIAL IVP ONE (17:04)
[2016-12-02 19:12] LABS: Hematocrit 26.7 % (37.5-50.1); Mean Corpuscular Hemoglobin 29.3 pg (28.0-33.3); Mean Platelet Volume 9.8 fL (9.4-12.4); Platelet Count 220 K/mcL (140-400)
[2016-12-02 19:14] LABS: Hemoglobin 8.8 g/dL (12.9-16.9)
[2016-12-02 19:44] LABS: Monocytes # 0.6 K/mcL (0.0-1.3); Neutrophils # 14.5 K/mcL (1.6-8.9)
[2016-12-02 19:45] LABS: Dohle Bodies Present (Not Present); Hypochromasia Present (Not Present)
[2016-12-02] MEDS: Nystatin SUSP 5 ML UD.LIQ PO SCH (20:33)
[2016-12-03] MEDS: Pantoprazole 40 MG in 0.9 % Sodium Chloride Mini Bag 100 ML IVC SCH ×2 (02:45→08:25)
[2016-12-03 04:15] LABS: Hematocrit 28.7 % (37.5-50.1); Hemoglobin 9.3 g/dL (12.9-16.9); Mean Corpuscular HGB Conc 32.4 g/dL (31.6-35.5); Mean Corpuscular Hemoglobin 28.6 pg (28.0-33.3); Mean Corpuscular Volume 88.3 fL (83.0-100.0); Mean Platelet Volume 9.4 fL (9.4-12.4); Platelet Count 246 K/mcL (140-400); Red Blood Count 3.25 M/mcL (4.19-5.50); Red Cell Distribution Width 16.6 % (11.5-14.5)
[2016-12-03 04:31] LABS: Alanine Aminotransferase 79 Units/L (0-55); Albumin 1.8 g/dL (3.5-5.0); Albumin/Globulin Ratio 0.8 (1.1-2.2); Alkaline Phosphatase 274 Units/L (38-126); Aspartate Amino Transferase 102 Units/L (5-34); BUN/Creatinine Ratio 72 (6-26); Bilirubin,Total 1.3 mg/dL (0.2-1.2); Blood Urea Nitrogen 60 mg/dL (8-26); Calcium 8.8 mg/dL (8.6-10.8); Carbon Dioxide 28 mEq/L (19-29); Chloride 110 mEq/L (98-109); Globulin 2.3 g/dL (2.4-3.5); Glucose 77 mg/dL (70-99); Osmolality,Calculated 322 (280-300); Potassium 3.7 mEq/L (3.5-4.5); Sodium 148 mEq/L (136-145); Total Protein 4.1 g/dL (6.0-8.3); eGFR For African Americans > 60 (> 60); eGFR For Non-African Americans > 60 (> 60)
[2016-12-03 05:07] LABS: Lymphocytes # 0.9 K/mcL (0.6-4.6); Neutrophils # 14.4 K/mcL (1.6-8.9)
[2016-12-03 05:08] LABS: Platelet Estimate Normal (Normal)
[2016-12-03] MEDS: Sucralfate 1 GM TABLET PO SCH ×5 (05:14→21:43)
--- NOTE | 2016-12-03 07:58 | Pulmonology Progress Note ---
<Danika Mcleod - Last Filed: 12/03/16 09:09> Date of Encounter: 12/03/16 Time of Encounter: 07:15 Assessment and Plan (1) GI bleed Current Visit: Yes Status: Acute Patient has 3 day history of coffee ground emesis and hypotension. Patient received two units of PRBCs and fluid resuscitation yesterday with increase of HgB to 9.3. Patient hemodynamically stable and will be transferred to the floor. Had endoscopy with surgery yesterday and multiple areas of possible masses were found. Biopsies were completed. Qualifiers: GI bleed type/associated pathology: unspecified gastrointestinal hemorrhage type Qualified Code(s): K92.2 - Gastrointestinal hemorrhage, unspecified (2) Hypotension Current Visit: Yes Status: Acute When the patient arrived to the ED his systolic BP was in the 80s. After aggressive fluid resuscitation and blood products his BP is stable and MAP is in the 70s at this time. HgB trending upward at this time. Qualifiers: Hypotension type: other hypotension type Qualified Code(s): I95.89 - Other hypotension (3) Non-Hodgkin lymphoma Current Visit: Yes Status: Chronic Patient currently not on any chemotherapy. Has outpatient follow up. Qualifiers: Non-Hodgkin lymphoma type: unspecified type Lymphoma site: unspecified region Qualified Code(s): C85.90 - Non-Hodgkin lymphoma, unspecified, unspecified site (4) Transaminitis Current Visit: Yes Status: Acute Patient has a history of elevated liver enzymes. Has had an outpatient biopsy and are waiting for results. No signs of hepatic encephalopathy at this time. (5) Elevated troponin Current Visit: Yes Status: Acute Most likely due to demand ischemia. Will complete an echo today. (6) DVT prophylaxis Current Visit: Yes Status: Acute Patient actively bleeding therefore heparin is contraindicated. Will apply SCDs. Subjective Principal diagnosis: GI Bleed Interval history: Patient had endoscopy yesterday. Multiple lesions noted throughout the GI tract. Biopsies were taken. Patient's HgB trending upward and now 9.3. Plan to transfer patient to the floor. Will consult with surgery to determine if he need to be NPO or is able to start diet. No acute episodes of bleeding or hematemesis. Objective PUL Vital signs: Last Vital Signs Temp 98.1 F 12/03/16 04:00 Pulse 84 12/03/16 07:00 Resp 19 12/03/16 07:00 BP 104/67 12/03/16 07:00 Pulse Ox 94 12/03/16 07:00 General appearance: no acute distress, alert, other (cachectic looking ) Eyes: nonicteric ENT: oropharynx moist Neck: supple, no JVD Effort: normal Auscultation: bilateral: clear Cardiovascular: other (one episode of Afib overnight but now patient is normal rate and rhythm) Gastrointestinal: soft, non-tender, non-distended Integumentary: normal Extremities: no cyanosis, no edema Musculoskeletal: no deformities Gait: normal posture normal mental status, non-focal exam mood appropriate Results - Laboratory Findings CBC and BMP: 12/03/16 04:11 12/03/16 04:11 PT/INR, D-dimer PT 11.7 Seconds (9.4-12.1) 12/02/16 11:48 Abnormal lab findings: Abnormal lab results WBC 15.3 K/mcL (4.3-11.1) H 12/03/16 04:11 RBC 3.25 M/mcL (4.19-5.50) L 12/03/16 04:11 Hgb 9.3 g/dL (12.9-16.9) L 12/03/16 04:11 Hct 28.7 % (37.5-50.1) L 12/03/16 04:11 RDW 16.6 % (11.5-14.5) H 12/03/16 04:11 Band Neutrophils % 6.0 % (0-4) H 12/03/16 04:11 Neutrophils # 14.4 K/mcL (1.6-8.9) H 12/03/16 04:11 Smudge Cells Present (Not Present) A 12/02/16 11:48 Dohle Bodies Present (Not Present) A 12/02/16 18:45 Hypochromasia Present (Not Present) A 12/02/16 18:45 Anisocytosis 2+ (Not Present) A 12/02/16 11:48 Microcytosis Present (Not Present) A 12/02/16 11:48 Sodium 148 mEq/L (136-145) H 12/03/16 04:11 Chloride 110 mEq/L (98-109) H 12/03/16 04:11 BUN 60 mg/dL (8-26) H D 12/03/16 04:11 BUN/Creatinine Ratio 72 (6-26) H 12/03/16 04:11 POC Glucose 92 (58-89) H 12/02/16 16:00 Calculated Osmolality 322 (280-300) H 12/03/16 04:11 Total Bilirubin 1.3 mg/dL (0.2-1.2) H D 12/03/16 04:11 AST 102 Units/L (5-34) H 12/03/16 04:11 ALT 79 Units/L (0-55) H 12/03/16 04:11 Alkaline Phosphatase 274 Units/L (38-126) H 12/03/16 04:11 Troponin I 0.50 ng/mL (0-0.03) H* 12/03/16 06:42 Serum Total Protein 4.1 g/dL (6.0-8.3) L 12/03/16 04:11 Albumin 1.8 g/dL (3.5-5.0) L 12/03/16 04:11 Globulin 2.3 g/dL (2.4-3.5) L 12/03/16 04:11 Albumin/Globulin Ratio 0.8 (1.1-2.2) L 12/03/16 04:11 - Clinical Findings Intake & Output: Intake & Output 12/02/16 12/02/16 12/03/16 15:59 23:59 07:59 Intake Total 700 / 1750 1370 / 1370 200 / 200 Output Total 100 / 100 350 / 350 900 / 900 Balance 600 / 1650 1020 / 1020 -700 / -700 Weight 64.5 kg Consult Discharge Plan - Plan [facility]errals: [facility]Primary Care Provider[facility] - <Landon Villalobos - Last Filed: 12/03/16 16:13> Date of Encounter: 12/03/16 Objective PUL Vital signs: Last Vital Signs Temp 98.0 F 12/03/16 11:55 Pulse 64 12/03/16 13:00 Resp 22 12/03/16 13:00 BP 103/62 12/03/16 13:00 Pulse Ox 92 12/03/16 13:00 Results - Laboratory Findings CBC and BMP: 12/03/16 04:11 12/03/16 04:11 PT/INR, D-dimer PT 11.7 Seconds (9.4-12.1) 12/02/16 11:48 Abnormal lab findings: Abnormal lab results WBC 15.3 K/mcL (4.3-11.1) H 12/03/16 04:11 RBC 3.25 M/mcL (4.19-5.50) L 12/03/16 04:11 Hgb 9.3 g/dL (12.9-16.9) L 12/03/16 04:11 Hct 28.7 % (37.5-50.1) L 12/03/16 04:11 RDW 16.6 % (11.5-14.5) H 12/03/16 04:11 Band Neutrophils % 6.0 % (0-4) H 12/03/16 04:11 Neutrophils # 14.4 K/mcL (1.6-8.9) H 12/03/16 04:11 Smudge Cells Present (Not Present) A 12/02/16 11:48 Dohle Bodies Present (Not Present) A 12/02/16 18:45 Hypochromasia Present (Not Present) A 12/02/16 18:45 Anisocytosis 2+ (Not Present) A 12/02/16 11:48 Microcytosis Present (Not Present) A 12/02/16 11:48 Sodium 148 mEq/L (136-145) H 12/03/16 04:11 Chloride 110 mEq/L (98-109) H 12/03/16 04:11 BUN 60 mg/dL (8-26) H D 12/03/16 04:11 BUN/Creatinine Ratio 72 (6-26) H 12/03/16 04:11 POC Glucose 92 (58-89) H 12/02/16 16:00 Calculated Osmolality 322 (280-300) H 12/03/16 04:11 Total Bilirubin 1.3 mg/dL (0.2-1.2) H D 12/03/16 04:11 AST 102 Units/L (5-34) H 12/03/16 04:11 ALT 79 Units/L (0-55) H 12/03/16 04:11 Alkaline Phosphatase 274 Units/L (38-126) H 12/03/16 04:11 Troponin I 0.50 ng/mL (0-0.03) H* 12/03/16 06:42 Serum Total Protein 4.1 g/dL (6.0-8.3) L 12/03/16 04:11 Albumin 1.8 g/dL (3.5-5.0) L 12/03/16 04:11 Globulin 2.3 g/dL (2.4-3.5) L 12/03/16 04:11 Albumin/Globulin Ratio 0.8 (1.1-2.2) L 12/03/16 04:11 - Clinical Findings Intake & Output: Intake & Output 12/03/16 12/03/16 12/03/16 07:59 15:59 23:59 Intake Total 200 / 200 100 / 100 Output Total 1300 / 1300 325 / 325 Balance -1100 / -1100 -225 / -225 Weight 64.5 kg - Attending Attestation I examined this patient and my medical decision-making was reviewed with the Resident Physician. I agree with the documented findings, disposition and treatment plan as described except to the extent set forth below. Patient seen and examined. Labs, radiology, chart personally reviewed. Agree with resident's history and physical, assessment, plan with following comments: GASTROENTEROLOGY NURSE: Patient follows commands, Pulmonary: Acceptable oxygenation and ventilation Cardiovascular: stable. Troponin elevation suspect from demand ischemia and to check echocardiogram and restart beta jose enrique as tolerated. Due to GI bleed no indication of anticoagulation. GI: Nutrition per dietary and GI prophylaxis per routine. Check with surgery regarding oral diet. Heme: DVT prophylaxis per routine. Mechanical: DVT prophylaxis and hematology consultation ID: No evidence of infection Renal; urine out put and renal funtion reviewed Endorcine: blood glucose is monitored Lines: all lines checked and no evidence of infections Skin: skin care to prevent pressure ulcers per nursing routine care Patient remained hemodynamically stable with stable hemoglobin and will transfer him to the floor
[2016-12-03] MEDS: Nystatin SUSP 5 ML UD.LIQ PO SCH ×5 (08:27→21:44)
[2016-12-03] MEDS ORDERED: Pantoprazole 40 MG in 0.9 % Sodium Chloride Mini Bag 100 ML IVC SCH (08:51)
--- NOTE | 2016-12-03 11:56 | General Surgery Progress Note ---
Date of Encounter: 12/03/16 Time of Encounter: 12:00 - Assessment and Plan (1) GI bleed Current Visit: Yes Status: Acute s/p EGD 12/02/2106: Severe esophagitis, medium-sized hiatal hernia, duodenitis -Continue PPI -Carafate for 1G QID one month -Nystatin solution QID for two weeks -Ok to advance diet as tolerated Qualifiers: GI bleed type/associated pathology: unspecified gastrointestinal hemorrhage type Qualified Code(s): K92.2 - Gastrointestinal hemorrhage, unspecified (2) DVT prophylaxis Current Visit: Yes Status: Acute (3) Non-Hodgkin lymphoma Current Visit: Yes Status: Chronic Qualifiers: Non-Hodgkin lymphoma type: unspecified type Lymphoma site: unspecified region Qualified Code(s): C85.90 - Non-Hodgkin lymphoma, unspecified, unspecified site (4) Anemia Current Visit: Yes Status: Acute Management per medicine Qualifiers: Anemia type: other cause Other causes of anemia: chronic disease, other Qualified Code(s): D63.8 - Anemia in other chronic diseases classified elsewhere (5) Hypotension Current Visit: Yes Status: Acute Qualifiers: Hypotension type: other hypotension type Qualified Code(s): I95.89 - Other hypotension (6) Transaminitis Current Visit: Yes Status: Acute Subjective Patient reports: feels better, voiding w/o difficulty (Per rodrigues), no bowel movement Narrative: He is somewhat confused making subjective assessment difficult to obtain. Does state he is thirsty and would like to drink "an orange or grape crush." Objective Vital Signs - Last 8 Hours Temp Pulse Resp BP Pulse Ox 12/03/16 09:00 77 20 108/54 91 12/03/16 08:00 84 21 106/66 92 12/03/16 07:58 98.2 F 12/03/16 07:00 83 19 104/67 94 12/03/16 06:00 81 12 111/67 98 12/03/16 05:00 77 20 103/59 100 12/03/16 04:00 98.1 F 74 23 110/64 96 Intake and Output 12/02/16 12/03/16 12/03/16 23:59 07:59 15:59 Intake Total 1370 / 1370 200 / 200 100 / 100 Output Total 350 / 350 1300 / 1300 Balance 1020 / 1020 -1100 / -1100 100 / 100 Intake: IV Fluids 1100 / 1100 100 / 100 100 / 100 0.9 % Sodium Chloride 1, 1000 / 1000 000 ML @ 3750 mls/hr IVC .Q16M [facility] Rx#:[id number] Protonix 40 MG In 0.9 % 100 / 100 100 / 100 100 / 100 Sodium Chloride (Mini-Bag +) 100 ML @ 20 mls/hr IVC .Q5H [facility] Rx#: [id number] Oral 100 / 100 Blood Product 270 / 270 Rbcs Leuko Poor As-1 270 / 270 Unit [id number] Output: Urine 350 / 350 Catheter 1300 / 1300 Other: Weight 64.5 kg Blood Glucose* 92 Patient Weight 12/03/16 23:59 Weight 64.5 kg - General physical appearance no distress, cachectic, chronically ill - ENT atraumatic, normocephalic - Neck Neck exam: no masses, no venous distension - Respiratory normal expansion, normal respiratory effort, clear to auscultation - Cardiovascular Cardiovascular exam: Present: RRR, no murmurs/rubs/gallops - Abdomen Abdomen: Present: bowel sounds present, non tender - Integumentary no rash - Neurologic confused - Musculoskeletal normal posture - Psychiatric oriented to person, speech is normal - Labs 12/03/16 04:11 12/03/16 04:11 Diabetes panel 12/03/16 Range/Units 04:11 Sodium 148 H (136-145) mEq/L Potassium 3.7 (3.5-4.5) mEq/L Chloride 110 H (98-109) mEq/L Carbon Dioxide 28 (19-29) mEq/L BUN 60 H D (8-26) mg/dL Creatinine 0.83 (0.72-1.25) mg/dL Glucose 77 (70-99) mg/dL Calcium 8.8 (8.6-10.8) mg/dL AST 102 H (5-34) Units/L ALT 79 H (0-55) Units/L Alkaline Phosphatase 274 H (38-126) Units/L Albumin 1.8 L (3.5-5.0) g/dL Calcium panel 12/03/16 Range/Units 04:11 Calcium 8.8 (8.6-10.8) mg/dL Albumin 1.8 L (3.5-5.0) g/dL Pituitary panel 12/03/16 Range/Units 04:11 Sodium 148 H (136-145) mEq/L Potassium 3.7 (3.5-4.5) mEq/L Chloride 110 H (98-109) mEq/L Carbon Dioxide 28 (19-29) mEq/L BUN 60 H D (8-26) mg/dL Creatinine 0.83 (0.72-1.25) mg/dL Glucose 77 (70-99) mg/dL Calcium 8.8 (8.6-10.8) mg/dL Adrenal panel 12/03/16 Range/Units 04:11 Sodium 148 H (136-145) mEq/L Potassium 3.7 (3.5-4.5) mEq/L Chloride 110 H (98-109) mEq/L Carbon Dioxide 28 (19-29) mEq/L BUN 60 H D (8-26) mg/dL Creatinine 0.83 (0.72-1.25) mg/dL Glucose 77 (70-99) mg/dL Calcium 8.8 (8.6-10.8) mg/dL Total Bilirubin 1.3 H D (0.2-1.2) mg/dL AST 102 H (5-34) Units/L ALT 79 H (0-55) Units/L Alkaline Phosphatase 274 H (38-126) Units/L Albumin 1.8 L (3.5-5.0) g/dL Consult Discharge Plan - Plan [facility]errals: [facility] [Primary Care Provider] -
--- NOTE | 2016-12-03 12:43 | Electrocardiograph Report ---
[address] [place], [place] [address] Test Date: 2016-12-03 Pat Name: Felix Guerin Department: 109 Room: [facility] Gender: M Medical Illustrator: MELISSA YANEZB: 1950 Requested By: Carlos Wiseman Order Number: [id number] Reading MD: Zulma Ledbetter Measurements Intervals [place] Rate: 86 P: 81 [place]: 159 QRS: -15 QRSD: 100 T: 55 QT: 394 QTc: 438 Interpretive Statements SINUS RHYTHM POSSIBLE LEFT ATRIAL ENLARGEMENT ST DEVIATION AND MODERATE T-WAVE ABNORMALITY, CONSIDER ANTEROLATERAL ISCHEMIA Electronically Signed On 12-03-2016 12:41:22 EDT by Zulma Ledbetter
--- NOTE | 2016-12-03 13:45 | Electrocardiograph Report ---
[place] [id number] Test Date: 2016-12-02 Pat Name: Felix Guerin Department: 109 Room: [facility] Gender: M Registered Nurse Float Pool: MELISSA : 1950 Requested By: Corey Gong Order Number: [id number] Reading MD: Zulma Ledbetter Measurements Intervals [place] Rate: 75 P: 65 [place]: 173 QRS: -14 QRSD: 101 T: 64 QT: 413 QTc: 441 Interpretive Statements SINUS RHYTHM POSSIBLE LEFT ATRIAL ENLARGEMENT NONSPECIFIC T-WAVE ABNORMALITY Electronically Signed On 12-03-2016 13:43:31 EDT by Zulma Ledbetter
[2016-12-03] MEDS: Pantoprazole 40 MG VIAL IVP SCH (17:06)
[2016-12-04] MEDS: Pantoprazole 40 MG VIAL IVP SCH ×2 (06:43→17:42)
--- NOTE | 2016-12-04 08:35 | Pulmonology Progress Note ---
<Avni Bhagat - Last Filed: 12/04/16 08:22> Date of Encounter: 12/04/16 Time of Encounter: 08:00 Assessment and Plan (1) Severe protein-calorie malnutrition Current Visit: Yes Status: Acute Patient has not had any oral intake since yesterday. States that he has no appetite for hospital food. Patient appears very malnutrition. Possible need for prison facility after discharge. Patient is pending transfer to the floor, I will speak to the son if he presents today about discharge options. career services manager has been consulted. Continue to encourage by mouth intake. (2) GI bleed Current Visit: Yes Status: Acute Patient had 3 day history of coffee ground emesis and hypotension. Patient received two units of PRBCs and fluid resuscitationon 12/02/16 with increase of HgB to 9.3. Patient hemodynamically stable and will be transferred to the floor. Had endoscopy with surgery on 12/02/16 and multiple areas of possible masses were found. Biopsies were completed. He is pending transferred to the floor. career services manager to determine discharge options/ instructions. Qualifiers: GI bleed type/associated pathology: unspecified gastrointestinal hemorrhage type Qualified Code(s): K92.2 - Gastrointestinal hemorrhage, unspecified (3) Hypotension Current Visit: Yes Status: Acute Resolved. Hemoglobin continues to be trending up. Vital signs are stable. MaAP continues to be in the 70s Qualifiers: Hypotension type: other hypotension type Qualified Code(s): I95.89 - Other hypotension (4) Non-Hodgkin lymphoma Current Visit: Yes Status: Chronic Follow-up outpatient. Qualifiers: Non-Hodgkin lymphoma type: unspecified type Lymphoma site: unspecified region Qualified Code(s): C85.90 - Non-Hodgkin lymphoma, unspecified, unspecified site (5) Transaminitis Current Visit: Yes Status: Acute Patient has a history of elevated liver enzymes. Has an outpatient biopsy and are waiting for results. No signs of hepatic encephalopathy at this time. (6) Elevated troponin Current Visit: Yes Status: Acute Elevated troponin most likely due to demand ischemia. Echo demonstrated left ventricular ejection fraction of 65 and is negative for heart failure. (7) DVT prophylaxis Current Visit: Yes Status: Acute Heparin is contraindicated due to active bleeding. We will apply SCDs Subjective Principal diagnosis: GI Bleed Interval history: Patient's son was informed during night of possible need for prison rehabilitation, the son expresses understanding of patient's situation and overall health. No other overnight events. Patient expresses desire to go home with son, will follow up with clinical social worker and will speak with the son today Objective PUL Vital signs: Last Vital Signs Temp 98 F 12/04/16 05:01 Pulse 58 12/04/16 04:00 Resp 19 12/04/16 04:00 BP 107/68 12/04/16 04:00 Pulse Ox 95 12/04/16 04:00 General appearance: no acute distress, other (malnourished) Eyes: nonicteric ENT: oropharynx moist Neck: supple Effort: normal Auscultation: bilateral: clear Cardiovascular: regular rate and rhythm Gastrointestinal: normoactive bowel sounds, soft, non-distended Integumentary: normal Extremities: no cyanosis, no edema, no clubbing Musculoskeletal: no deformities normal mental status, non-focal exam depressed Results - Laboratory Findings CBC and BMP: 12/03/16 04:11 12/03/16 04:11 PT/INR, D-dimer PT 11.7 Seconds (9.4-12.1) 12/02/16 11:48 Abnormal lab findings: Abnormal lab results WBC 15.3 K/mcL (4.3-11.1) H 12/03/16 04:11 RBC 3.25 M/mcL (4.19-5.50) L 12/03/16 04:11 Hgb 9.3 g/dL (12.9-16.9) L 12/03/16 04:11 Hct 28.7 % (37.5-50.1) L 12/03/16 04:11 RDW 16.6 % (11.5-14.5) H 12/03/16 04:11 Band Neutrophils % 6.0 % (0-4) H 12/03/16 04:11 Neutrophils # 14.4 K/mcL (1.6-8.9) H 12/03/16 04:11 Smudge Cells Present (Not Present) A 12/02/16 11:48 Dohle Bodies Present (Not Present) A 12/02/16 18:45 Hypochromasia Present (Not Present) A 12/02/16 18:45 Anisocytosis 2+ (Not Present) A 12/02/16 11:48 Microcytosis Present (Not Present) A 12/02/16 11:48 Sodium 148 mEq/L (136-145) H 12/03/16 04:11 Chloride 110 mEq/L (98-109) H 12/03/16 04:11 BUN 60 mg/dL (8-26) H D 12/03/16 04:11 BUN/Creatinine Ratio 72 (6-26) H 12/03/16 04:11 POC Glucose 92 (58-89) H 12/02/16 16:00 Calculated Osmolality 322 (280-300) H 12/03/16 04:11 Total Bilirubin 1.3 mg/dL (0.2-1.2) H D 12/03/16 04:11 AST 102 Units/L (5-34) H 12/03/16 04:11 ALT 79 Units/L (0-55) H 12/03/16 04:11 Alkaline Phosphatase 274 Units/L (38-126) H 12/03/16 04:11 Troponin I 0.50 ng/mL (0-0.03) H* 12/03/16 06:42 Serum Total Protein 4.1 g/dL (6.0-8.3) L 12/03/16 04:11 Albumin 1.8 g/dL (3.5-5.0) L 12/03/16 04:11 Globulin 2.3 g/dL (2.4-3.5) L 12/03/16 04:11 Albumin/Globulin Ratio 0.8 (1.1-2.2) L 12/03/16 04:11 - Clinical Findings Intake & Output: Intake & Output 12/03/16 12/04/16 12/04/16 23:59 07:59 15:59 Output Total 650 / 650 600 / 600 Balance -650 / -650 -600 / -600 Weight 59.7 kg Consult Discharge Plan - Plan [facility]errals: [facility] [Primary Care Provider[facility] - <Landon Villalobos - Last Filed: 12/04/16 16:18> Date of Encounter: 12/04/16 Objective PUL Vital signs: Last Vital Signs Temp 97.3 F L 12/04/16 11:44 Pulse 62 12/04/16 12:45 Resp 19 12/04/16 12:45 BP 95/57 12/04/16 12:45 Pulse Ox 94 12/04/16 12:45 Results - Laboratory Findings CBC and BMP: 12/03/16 04:11 12/03/16 04:11 PT/INR, D-dimer PT 11.7 Seconds (9.4-12.1) 12/02/16 11:48 Abnormal lab findings: Abnormal lab results WBC 15.3 K/mcL (4.3-11.1) H 12/03/16 04:11 RBC 3.25 M/mcL (4.19-5.50) L 12/03/16 04:11 Hgb 9.3 g/dL (12.9-16.9) L 12/03/16 04:11 Hct 28.7 % (37.5-50.1) L 12/03/16 04:11 RDW 16.6 % (11.5-14.5) H 12/03/16 04:11 Band Neutrophils % 6.0 % (0-4) H 12/03/16 04:11 Neutrophils # 14.4 K/mcL (1.6-8.9) H 12/03/16 04:11 Smudge Cells Present (Not Present) A 12/02/16 11:48 Dohle Bodies Present (Not Present) A 12/02/16 18:45 Hypochromasia Present (Not Present) A 12/02/16 18:45 Anisocytosis 2+ (Not Present) A 12/02/16 11:48 Microcytosis Present (Not Present) A 12/02/16 11:48 Sodium 148 mEq/L (136-145) H 12/03/16 04:11 Chloride 110 mEq/L (98-109) H 12/03/16 04:11 BUN 60 mg/dL (8-26) H D 12/03/16 04:11 BUN/Creatinine Ratio 72 (6-26) H 12/03/16 04:11 POC Glucose 92 (58-89) H 12/02/16 16:00 Calculated Osmolality 322 (280-300) H 12/03/16 04:11 Total Bilirubin 1.3 mg/dL (0.2-1.2) H D 12/03/16 04:11 AST 102 Units/L (5-34) H 12/03/16 04:11 ALT 79 Units/L (0-55) H 12/03/16 04:11 Alkaline Phosphatase 274 Units/L (38-126) H 12/03/16 04:11 Troponin I 0.50 ng/mL (0-0.03) H* 12/03/16 06:42 Serum Total Protein 4.1 g/dL (6.0-8.3) L 12/03/16 04:11 Albumin 1.8 g/dL (3.5-5.0) L 12/03/16 04:11 Globulin 2.3 g/dL (2.4-3.5) L 12/03/16 04:11 Albumin/Globulin Ratio 0.8 (1.1-2.2) L 12/03/16 04:11 - Microbiology Findings Microbiology Findings: Microbiology, Last 48 Hours 12/02/16 17:38 Helicobacter pylori Urease &Culture - Final Gastric Biopsy - Clinical Findings Intake & Output: Intake & Output 12/04/16 12/04/16 12/04/16 07:59 15:59 23:59 Intake Total 120 / 120 Output Total 600 / 600 300 / 300 Balance -600 / -600 -180 / -180 Weight 59.7 kg - Attending Attestation I examined this patient and my medical decision-making was reviewed with the Resident Physician. I agree with the documented findings, disposition and treatment plan as described except to the extent set forth below. Patient seen and examined. Labs, radiology, chart personally reviewed. Agree with resident's history and physical, assessment, plan with following comments: SERVICES COORDINATOR: Patient follows commands, Pulmonary: Acceptable oxygenation and ventilation Cardiovascular: stable GI: Nutrition per dietary and GI prophylaxis per routine. Patient with severe protein calorie malnutrition and discussed with the family about different options. Unfortunately with his GI bleed feeding tube is not the best option in my opinion and would appreciate surgery's input regarding feeding tube for feeding endoscopy. Heme: DVT prophylaxis per routine Renal; urine out put and renal funtion reviewed Endorcine: blood glucose is monitored Lines: all lines checked and no evidence of infections Skin: skin care to prevent pressure ulcers per nursing routine care Patient to be transferred to the floor and awaiting for the bed
[2016-12-04] MEDS: Sucralfate 1 GM TABLET PO SCH ×4 (09:08→22:21)
[2016-12-04] MEDS: Nystatin SUSP 5 ML UD.LIQ PO SCH ×4 (09:08→22:21)
[2016-12-05] MEDS ORDERED: *HR* Metoprolol 5 MG/5 ML VIAL IVP ONE ×2 (06:51→06:59)
[2016-12-05] MEDS: Pantoprazole 40 MG VIAL IVP SCH ×2 (06:54→17:13)
[2016-12-05] MEDS: Nystatin SUSP 5 ML UD.LIQ PO SCH ×4 (08:58→20:16)
[2016-12-05] MEDS: Sucralfate 1 GM TABLET PO SCH ×4 (08:59→20:17)
[2016-12-05] MEDS: 0.9 % Sodium Chloride 1,000 ML IVC SCH ×2 (08:59→18:32)
[2016-12-05] MEDS: Megestrol Acetate 400 MG/10 ML UDC PO SCH ×2 (12:21→20:16)
--- NOTE | 2016-12-05 12:48 | Consult Note ---
Date of Encounter: 12/05/16 Time of Encounter: 11:40 Assessment & Recommendation (1) Depression Current visit: Yes Status: Acute Assessment & Recommendation: Patient reports a history of depression and reports depression symptoms now. He also reports a lot of fatigue and decreased appetite which may be secondary to medical issues. He currently takes Celexa and Remeron. Patient is interested in potentially increasing or changing medications to help with mood. Given his poor appetite I will recommend increasing Remeron to 15 mg by mouth daily at bedtime. He does not meet criteria for inpatient admission at this time. I recommend he follow up with an outpatient psychiatrist for further titration of his depression medications. Qualifiers: Depression Type: major depressive disorder Major depression recurrence: recurrent Active/Remission status: currently active Major depression episode severity: moderate Qualified Code(s): F33.1 - Major depressive disorder, recurrent, moderate History of Present Illness Patient: new to practice Requesting Physician: Landon Villalobos MD Reason for consult: depression History of present illness: Mr. Guerin is a 66 year old male with a history of multiple medical issues who presented to the hospital with a GI bleed. Patient reports he has not been feeling well for some time and has little appetite. He states he receives his care at the [facility]. He also has a history of non-Hodgkin's lymphoma. Patient reports he does feel depressed at times and he takes some medications for depression but is not sure what they are. Patient reports he would like to eat but does not feel hungry. Patient reports that he feels very tired all the time. He sleeps a lot. He denies suicidal or homicidal ideation, intent, or plan. He denies auditory or visual hallucinations. He denies any history of admissions to psychiatric facility for any reason. He denies history of suicide attempts. He denies illicit drug use. He denies current alcohol use. Per chart patient may have had issues with alcohol dependence in the past. CC: Landon Villalobos MD Past Med Surg Social Fam HX - Past Medical History Medical history: non-contributory, cirrhosis - Past Psychiatric History Psychiatric history: Reports: depression. Denies: prior suicide attempt, previous psychiatric hospitalization Family psychiatric history: No Family History of Suicide: None - Past Surgical History Surgical History: coronary bypass (CABG), other - Social History Smoking Status: Current some day smoker Smokeless Tobacco Status: No Alcohol use: none Drug use: none Medications & Allergies Aspirin [Lo-Dose Aspirin EC] 81 mg PO DAILY 12/02/16 [History] Citalopram Hydrobromide [Celexa] 20 mg PO DAILY 12/02/16 [History] Ergocalciferol (VITAMIN D2) [Vitamin D2] 50,000 unit PO QWEEK 12/02/16 [History] Furosemide [Lasix] 20 mg PO DAILY 12/02/16 [History] Metoprolol [Lopressor] 50 mg PO BID 12/02/16 [History] Mirtazapine 7.5 mg PO DAILY 12/02/16 [History] Multivit-Min/FA/Lycopen/Lutein [A Thru Z Select Men 50+ Tablet] 1 tab PO DAILY 12/02/16 [History] Nitroglycerin [Nitrostat] 0.4 mg SL Q5M PRN 12/02/16 [History] Oxycodone HCl [Oxaydo] 5 mg PO TID PRN 12/02/16 [History] Potassium Chloride [K-Tab ER] 20 meq PO BID 12/02/16 [History] Rifaximin [Xifaxan] 550 mg PO BID 12/02/16 [History] Spironolactone [Aldactone] 50 mg PO DAILY 12/02/16 [History] Tamsulosin [Flomax] 0.4 mg PO DAILY 12/02/16 [History] 3 Allergy/AdvReac Type Severity Reaction Status Date / Time No Known Allergies Allergy Verified 12/02/16 10:38 Review of Systems ROS limited: due to patient condition Psychiatric: Reports: depression, anhedonia, difficulty concentrating Mental Status Exam Patient orientation: Yes Person, Yes Time, Yes Place Level of alertness: Alert Patient appearance: Thin Behavior: calm, cooperative Psychomotor activity: Slowed Eye contact: Minimal Contact Mood description: Depressed Affect description: congruent with mood Speech pattern: Slowed Speech volume: Soft/Quiet Thought process: Intact, Logical, Linear Thought content: No Suicidal ideation, No Homicidal ideation, No Overt delusions Perceptual disturbances: No Auditory hallucinations, No Visual hallucinations Attention span: Capable of Focused Attention Memory description: Grossly Intact Patient reliability: Reliable Historian Intelligence estimate: Average Judgment: Fair Insight: Partial Results - Vital Signs Vital signs: Temp Pulse Resp BP Pulse Ox 97.7 F 52 18 101/64 96 12/05/16 11:47 12/05/16 12:00 12/05/16 12:00 12/05/16 12:00 12/05/16 12:00 - Labs Labs: Laboratory Last Values WBC 15.3 K/mcL (4.3-11.1) H 12/03/16 04:11 RBC 3.25 M/mcL (4.19-5.50) L 12/03/16 04:11 Hgb 9.3 g/dL (12.9-16.9) L 12/03/16 04:11 Hct 28.7 % (37.5-50.1) L 12/03/16 04:11 MCV 88.3 fL (83.0-100.0) 12/03/16 04:11 MCH 28.6 pg (28.0-33.3) 12/03/16 04:11 MCHC 32.4 g/dL (31.6-35.5) 12/03/16 04:11 RDW 16.6 % (11.5-14.5) H 12/03/16 04:11 Plt Count 246 K/mcL (140-400) 12/03/16 04:11 MPV 9.4 fL (9.4-12.4) 12/03/16 04:11 Seg Neutrophils % 88.0 % 12/03/16 04:11 Band Neutrophils % 6.0 % (0-4) H 12/03/16 04:11 Lymphocytes % 6.0 % 12/03/16 04:11 Monocytes % 4.0 % 12/02/16 18:45 Neutrophils # 14.4 K/mcL (1.6-8.9) H 12/03/16 04:11 Lymphocytes # 0.9 K/mcL (0.6-4.6) 12/03/16 04:11 Monocytes # 0.6 K/mcL (0.0-1.3) 12/02/16 18:45 Smudge Cells Present (Not Present) A 12/02/16 11:48 Dohle Bodies Present (Not Present) A 12/02/16 18:45 Platelet Estimate Normal (Normal) 12/03/16 04:11 Hypochromasia Present (Not Present) A 12/02/16 18:45 Anisocytosis 2+ (Not Present) A 12/02/16 11:48 Microcytosis Present (Not Present) A 12/02/16 11:48 PT 11.7 Seconds (9.4-12.1) 12/02/16 11:48 INR 1.1 12/02/16 11:48 APTT 28.6 Seconds (26.0-36.0) 12/02/16 11:48 Sodium 148 mEq/L (136-145) H 12/03/16 04:11 Potassium 3.7 mEq/L (3.5-4.5) 12/03/16 04:11 Chloride 110 mEq/L (98-109) H 12/03/16 04:11 Carbon Dioxide 28 mEq/L (19-29) 12/03/16 04:11 BUN 60 mg/dL (8-26) H D 12/03/16 04:11 Creatinine 0.83 mg/dL (0.72-1.25) 12/03/16 04:11 Est GFR ( Amer) > 60 (> 60) 12/03/16 04:11 Est GFR (Non-Af Amer) > 60 (> 60) 12/03/16 04:11 BUN/Creatinine Ratio 72 (6-26) H 12/03/16 04:11 Glucose 77 mg/dL (70-99) 12/03/16 04:11 POC Glucose 92 (58-89) H 12/02/16 16:00 Calculated Osmolality 322 (280-300) H 12/03/16 04:11 Lactic Acid 0.9 mmol/L (0.5-2.2) 12/03/16 04:11 Calcium 8.8 mg/dL (8.6-10.8) 12/03/16 04:11 Total Bilirubin 1.3 mg/dL (0.2-1.2) H D 12/03/16 04:11 AST 102 Units/L (5-34) H 12/03/16 04:11 ALT 79 Units/L (0-55) H 12/03/16 04:11 Alkaline Phosphatase 274 Units/L (38-126) H 12/03/16 04:11 Ammonia 23 mcmol/L (18-72) 12/02/16 18:45 Troponin I 0.50 ng/mL (0-0.03) H* 12/03/16 06:42 Serum Total Protein 4.1 g/dL (6.0-8.3) L 12/03/16 04:11 Albumin 1.8 g/dL (3.5-5.0) L 12/03/16 04:11 Globulin 2.3 g/dL (2.4-3.5) L 12/03/16 04:11 Albumin/Globulin Ratio 0.8 (1.1-2.2) L 12/03/16 04:11 Lipase < 10 Units/L (8-78) 12/02/16 11:48 Blood Type A POSITIVE 12/02/16 11:48 Antibody Screen NEGATIVE 12/02/16 11:48 Crossmatch See Detail 12/02/16 11:48 Consult Discharge Plan - Plan [facility]errals: [facility] [Primary Care Provider] -
--- NOTE | 2016-12-05 14:29 | Pulmonology Progress Note ---
<Avni Bhagat - Last Filed: 12/05/16 15:13> Date of Encounter: 12/05/16 Time of Encounter: 08:00 Assessment and Plan (1) GI bleed Current Visit: Yes Status: Acute Patient had 3 day history of coffee ground emesis and hypotension. Patient received two units of PRBCs and fluid resuscitationon 12/02/16 with increase of HgB to 9.3. Patient hemodynamically stable and no signs of bleeding. Had endoscopy with surgery on 12/02/16 and multiple areas of possible masses were found. Biopsy was not completed due to bleed. Patient has repeat endoscopy tomorrow at noon. Hemonc consulted for recommendation. He is pending transfer to the floor. Qualifiers: GI bleed type/associated pathology: unspecified gastrointestinal hemorrhage type Qualified Code(s): K92.2 - Gastrointestinal hemorrhage, unspecified (2) Severe protein-calorie malnutrition Current Visit: Yes Status: Acute Patient has very poor appetite. He appears very malnutrition. Possible need for [facility] facility after discharge. I will continue to encourage by mouth intake. Will consider nutrition consult if patient's appetite does not improve post repeat endoscopy with biopsy tomorrow to rule out possible malignancy. (3) Hypotension Current Visit: Yes Status: Acute Resolved. Vital signs are stable. MAP continues to be in the 70s Qualifiers: Hypotension type: other hypotension type Qualified Code(s): I95.89 - Other hypotension (4) Non-Hodgkin lymphoma Current Visit: Yes Status: Chronic Follow-up outpatient. Qualifiers: Non-Hodgkin lymphoma type: unspecified type Lymphoma site: unspecified region Qualified Code(s): C85.90 - Non-Hodgkin lymphoma, unspecified, unspecified site (5) Transaminitis Current Visit: Yes Status: Acute Patient has a history of elevated liver enzymes. Has an outpatient biopsy and are waiting for results. No signs of hepatic encephalopathy at this time. (6) Elevated troponin Current Visit: Yes Status: Acute Elevated troponin most likely due to demand ischemia. Echo demonstrated left ventricular ejection fraction of 65 and is negative for heart failure. No further management needed at this time (7) Depression Current Visit: Yes Status: Acute Psych recommends to increase patient's Remeron to 15 mg by mouth daily at bedtime. Qualifiers: Depression Type: major depressive disorder Major depression recurrence: recurrent Active/Remission status: currently active Major depression episode severity: moderate Qualified Code(s): F33.1 - Major depressive disorder, recurrent, moderate (8) DVT prophylaxis Current Visit: Yes Status: Acute SCDs for DVT prophylaxis Subjective Principal diagnosis: GI Bleed Interval history: Patient continues to have very poor appetite. He is AO 3. He expresses depressed mood. Denies any symptoms of fever, chills, nausea, vomiting. He is voiding without difficulty. he is passing gas and has had a bowel movement. No overnight events. Objective PUL Vital signs: Last Vital Signs Temp 97.7 F 12/05/16 11:47 Pulse 52 12/05/16 12:00 Resp 18 12/05/16 12:00 BP 101/64 12/05/16 12:00 Pulse Ox 96 12/05/16 12:00 General appearance: no acute distress Eyes: nonicteric ENT: oropharynx dry Neck: supple Auscultation: bilateral: clear Cardiovascular: regular rate and rhythm Gastrointestinal: hypoactive bowel sounds, soft, non-tender, non-distended Integumentary: normal Extremities: no cyanosis, no edema, no clubbing Musculoskeletal: no deformities other (A and O 3) depressed Results - Laboratory Findings CBC and BMP: 12/03/16 04:11 12/03/16 04:11 PT/INR, D-dimer PT 11.7 Seconds (9.4-12.1) 12/02/16 11:48 Abnormal lab findings: Abnormal lab results WBC 15.3 K/mcL (4.3-11.1) H 12/03/16 04:11 RBC 3.25 M/mcL (4.19-5.50) L 12/03/16 04:11 Hgb 9.3 g/dL (12.9-16.9) L 12/03/16 04:11 Hct 28.7 % (37.5-50.1) L 12/03/16 04:11 RDW 16.6 % (11.5-14.5) H 12/03/16 04:11 Band Neutrophils % 6.0 % (0-4) H 12/03/16 04:11 Neutrophils # 14.4 K/mcL (1.6-8.9) H 12/03/16 04:11 Smudge Cells Present (Not Present) A 12/02/16 11:48 Dohle Bodies Present (Not Present) A 12/02/16 18:45 Hypochromasia Present (Not Present) A 12/02/16 18:45 Anisocytosis 2+ (Not Present) A 12/02/16 11:48 Microcytosis Present (Not Present) A 12/02/16 11:48 Sodium 148 mEq/L (136-145) H 12/03/16 04:11 Chloride 110 mEq/L (98-109) H 12/03/16 04:11 BUN 60 mg/dL (8-26) H D 12/03/16 04:11 BUN/Creatinine Ratio 72 (6-26) H 12/03/16 04:11 POC Glucose 92 (58-89) H 12/02/16 16:00 Calculated Osmolality 322 (280-300) H 12/03/16 04:11 Total Bilirubin 1.3 mg/dL (0.2-1.2) H D 12/03/16 04:11 AST 102 Units/L (5-34) H 12/03/16 04:11 ALT 79 Units/L (0-55) H 12/03/16 04:11 Alkaline Phosphatase 274 Units/L (38-126) H 12/03/16 04:11 Troponin I 0.50 ng/mL (0-0.03) H* 12/03/16 06:42 Serum Total Protein 4.1 g/dL (6.0-8.3) L 12/03/16 04:11 Albumin 1.8 g/dL (3.5-5.0) L 12/03/16 04:11 Globulin 2.3 g/dL (2.4-3.5) L 12/03/16 04:11 Albumin/Globulin Ratio 0.8 (1.1-2.2) L 12/03/16 04:11 - Microbiology Findings Microbiology Findings: Microbiology, Last 48 Hours 12/02/16 17:38 Helicobacter pylori Urease &Culture - Final Gastric Biopsy - Clinical Findings Intake & Output: Intake & Output 12/04/16 12/05/16 12/05/16 23:59 07:59 15:59 Intake Total 100 / 100 Output Total 100 / 100 425 / 425 Balance 0 / 0 -425 / -425 Weight 61.4 kg - VTE Documentation of Mechanical Device: Intermittent pneumatic compression device Consult Discharge Plan - Plan Referrals: [facility] [Primary Care Provider] - <Saadlla,Landon M - Last Filed: 12/05/16 16:46> Date of Encounter: 12/05/16 Objective PUL Vital signs: Last Vital Signs Temp 97.1 F L 12/05/16 16:03 Pulse 54 12/05/16 16:00 Resp 20 12/05/16 16:00 BP 99/59 12/05/16 16:00 Pulse Ox 96 12/05/16 16:00 Results - Laboratory Findings CBC and BMP: 12/03/16 04:11 12/03/16 04:11 PT/INR, D-dimer PT 11.7 Seconds (9.4-12.1) 12/02/16 11:48 Abnormal lab findings: Abnormal lab results WBC 15.3 K/mcL (4.3-11.1) H 12/03/16 04:11 RBC 3.25 M/mcL (4.19-5.50) L 12/03/16 04:11 Hgb 9.3 g/dL (12.9-16.9) L 12/03/16 04:11 Hct 28.7 % (37.5-50.1) L 12/03/16 04:11 RDW 16.6 % (11.5-14.5) H 12/03/16 04:11 Band Neutrophils % 6.0 % (0-4) H 12/03/16 04:11 Neutrophils # 14.4 K/mcL (1.6-8.9) H 12/03/16 04:11 Smudge Cells Present (Not Present) A 12/02/16 11:48 Dohle Bodies Present (Not Present) A 12/02/16 18:45 Hypochromasia Present (Not Present) A 12/02/16 18:45 Anisocytosis 2+ (Not Present) A 12/02/16 11:48 Microcytosis Present (Not Present) A 12/02/16 11:48 Sodium 148 mEq/L (136-145) H 12/03/16 04:11 Chloride 110 mEq/L (98-109) H 12/03/16 04:11 BUN 60 mg/dL (8-26) H D 12/03/16 04:11 BUN/Creatinine Ratio 72 (6-26) H 12/03/16 04:11 POC Glucose 92 (58-89) H 12/02/16 16:00 Calculated Osmolality 322 (280-300) H 12/03/16 04:11 Total Bilirubin 1.3 mg/dL (0.2-1.2) H D 12/03/16 04:11 AST 102 Units/L (5-34) H 12/03/16 04:11 ALT 79 Units/L (0-55) H 12/03/16 04:11 Alkaline Phosphatase 274 Units/L (38-126) H 12/03/16 04:11 Troponin I 0.50 ng/mL (0-0.03) H* 12/03/16 06:42 Serum Total Protein 4.1 g/dL (6.0-8.3) L 12/03/16 04:11 Albumin 1.8 g/dL (3.5-5.0) L 12/03/16 04:11 Globulin 2.3 g/dL (2.4-3.5) L 12/03/16 04:11 Albumin/Globulin Ratio 0.8 (1.1-2.2) L 12/03/16 04:11 - Microbiology Findings Microbiology Findings: Microbiology, Last 48 Hours 12/02/16 17:38 Helicobacter pylori Urease &Culture - Final Gastric Biopsy - Clinical Findings Intake & Output: Intake & Output 12/05/16 12/05/16 12/05/16 07:59 15:59 23:59 Output Total 425 / 425 Balance -425 / -425 Weight 61.4 kg - Attending Attestation I examined this patient and my medical decision-making was reviewed with the Resident Physician. I agree with the documented findings, disposition and treatment plan as described except to the extent set forth below. Patient seen and examined. Labs, radiology, chart personally reviewed. 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 Patient with severe protein calorie malnutrition and encouraged patient and endoscopy to be repeated. Resume home medication Heme: DVT prophylaxis per routine. Hematology consultation Renal; urine out put and renal funtion reviewed Endorcine: blood glucose is monitored Lines: all lines checked and no evidence of infections Skin: skin care to prevent pressure ulcers per nursing routine care Clinically patient looks very depressed and psych consult.
--- NOTE | 2016-12-05 16:00 | Oncology Inp Consult Note ---
Date of Encounter: 12/05/16 Time of Encounter: 15:40 Assessment and Plan (1) Non-Hodgkin lymphoma Status: Chronic Assessment and plan: - Patient reports a diagnosis of NHL s/p approximately 6 cycles of Bendamustine/ Rituximab with subsequent rituximab maintenance, completing therapy in last September. He reports being told that scans post therapy showed not residual disease , but is not sure of the exact time. CT chest/abdomen/pelvis completed on showed not enlarged lymph nodes or other findings suggestive of disease relapse. - He was in agreement to follow up with an oncology at [facility] for establish care and routine follow up. - He was counseled to inform us if he experiences concerning symptoms ( e.g fever, night sweats, new lymphadenopathy) since this would promt us to repeat a CT scan. - At this time there is not hematologic or radiologic findings suggestive of disease relapse. - Please obtain medical records from [place] ( Dr. Lowry, [facility], phone [phone]). I attempted to obtain the records, I called his office phone number, apparently office is closed but I left a message requesting the records with my contact information. - Please arrange for an outpatient visit at [facility]. Qualifiers: Non-Hodgkin lymphoma type: unspecified type Lymphoma site: unspecified region Qualified Code(s): C85.90 - Non-Hodgkin lymphoma, unspecified, unspecified site (2) Acute blood loss anemia Status: Acute Assessment and plan: -EGD report from 12/02/16, findings consistent with duodenitis, medium sized hiatal hernia, severe esophagitis, and biopsies were taken for Helicobacter pylori . Apparently there are considerations to repeat EGD tomorrow . (3) Transaminitis Status: Acute Assessment and plan: - CT abdomen from 12/02/16 revealed not concerning liver findings. I do not think that transaminitis is related to his history of NHL. - I was informed that he underwent a liver biopsy in September 2016, revealing not evidence of malignancy, but not official report available. Please obtain report as requested above ( see contact information). - Data of Consult Requesting Physician: Landon Villalobos MD Primary Care Provider: PCP [place] - Consult Narrative Reason for consult: oncology management in view of history of NHL s/p chemotherapy History of present illness: Mr. Guerin is a 66 year old male [facility] history of NHL s/p first line therapy with bendamustine/rituximab and Rituximab maintenance. He was transferred to [facility] from [facility] due to cofee ground emesis and hypotension. Oncology consult was requested in view of history of NHL. He was seen while accompanied by his son at the bedside. Patient developed an episode of coffee ground emesis last friday, with recurrent episodes since then for which he underwent management with transfusion of blood products and endoscopy on 12/02/16 and revealed scattered mild inflammation characterized by adherent blood, erythema and friability at the level of the duodenal bulb. The exam of the stomach was otherwise normal. It's documented that there was not evidence of of erythema or inlammatory changes sugestive of gastritis or inflammation in the gastric antrum. Biopsies were taken with a cold forceps for Helicobacter Pylori testing, and H. Pylori testing using CLOtest. Estimated blood loss was minimal. A medium size hernia was noticed, and severe esophagitis with not bleeding was found 45 cm from the incision to approximately [address] scan of the abdomen/pelvis/chest on 12/02 showed not abnormal/enlarge lymphatic nodes or other radiologic findings suggestive of relapse of NHL. He does not remember what type of NHL he had, but reports that he underwent repeated CT scans after completion of therapy with bendamustine, being told that there was not residual disease. He reports being in Rituximab maintenance, completed his last treatment in September 2016. His oncology care was provided by Dr. Lowry at [facility], phone number: [phone]. He used to live in [place] in a rented apartment with his friends, but has since then to move to [place] ( 1 [place]/5 hour away from [facility]), and lives with his adult son. He is interested in establishing care here at the [facility]. He denies any recent episode of night sweats, fever. Reports a significant amount of weight loss during the last year, but is not aware if he has lost any weight for the last couple of months. He reports undergoing a liver biopsy last September, with with not evidence of malignancy/lymphoma. Report no available in our record. He reports a history of alcohol intake, but nothing in the near past. He reports being active smoker. Reports that he tried marihuana in the past. Past Med Surg Social Fam HX - Past Medical History Medical history: non-contributory, cirrhosis, other (NHL) Psychiatric history: depression - Past Surgical History Surgical History: coronary bypass (CABG), other - Social History Smoking Status: Current some day smoker Smokeless Tobacco Status: No Alcohol use: none Drug use: none, marijuana (already quit) Occupational status: unemployed Current living situation: Other (Lives with his son, and planning to stay in [place] for a while. Used to live in [place] until September 2016) Recent Out of Country Travel Within the Last 8 Weeks: No - Family History Son Race: Family Member Ethnicity: Non- Living Status: Still Living Medications and Allergies Aspirin [Lo-Dose Aspirin EC] 81 mg PO DAILY 12/02/16 [History] Citalopram Hydrobromide [Celexa] 20 mg PO DAILY 12/02/16 [History] Ergocalciferol (VITAMIN D2) [Vitamin D2] 50,000 unit PO QWEEK 12/02/16 [History] Furosemide [Lasix] 20 mg PO DAILY 12/02/16 [History] Metoprolol [Lopressor] 50 mg PO BID 12/02/16 [History] Mirtazapine 7.5 mg PO DAILY 12/02/16 [History] Multivit-Min/FA/Lycopen/Lutein [A Thru Z Select Men 50+ Tablet] 1 tab PO DAILY 12/02/16 [History] Nitroglycerin [Nitrostat] 0.4 mg SL Q5M PRN 12/02/16 [History] Oxycodone HCl [Oxaydo] 5 mg PO TID PRN 12/02/16 [History] Potassium Chloride [K-Tab ER] 20 meq PO BID 12/02/16 [History] Rifaximin [Xifaxan] 550 mg PO BID 12/02/16 [History] Spironolactone [Aldactone] 50 mg PO DAILY 12/02/16 [History] Tamsulosin [Flomax] 0.4 mg PO DAILY 12/02/16 [History] 3 Allergy/AdvReac Type Severity Reaction Status Date / Time No Known Allergies Allergy Verified 12/02/16 10:38 Constitutional: Present: malaise. Absent: chills, excessive sweating, fever(s) , frequent falls, headache(s), lethargy Eyes: Absent: blurry vision, change in vision, diplopia Cardiovascular: Absent: chest pain with activity, leg edema, leg ulcers Respiratory: Absent: cough, dyspnea, hemoptysis, dyspnea on exertion Gastrointestinal: Present: coffee ground emesis, hematemesis. Absent: constipation, hematochezia Musculoskeletal: Absent: abnormal gait, back pain, myalgias Integumentary: Absent: bleeding lesions, pruritus Neurological: Absent: abnormal speech, behavioral changes, dizziness Psychiatric: Present: change in appetite. Absent: visual hallucinations Endocrine: Present: fatigue Hematologic/Lymphatic: Present: as per HPI Oncology - Exam - Constitutional Vitals: Temp Pulse Resp BP Pulse Ox 97.7 F 52 18 101/64 96 12/05/16 11:47 12/05/16 12:00 12/05/16 12:00 12/05/16 12:00 12/05/16 12:00 - Head Head exam: Present: normal inspection, normocephalic - Eye Eye exam: Present: EOMI, normal appearance, PERRL. Absent: periorbital swelling , periorbital tenderness - ENT ENT exam: Absent: normal external ear exam - Neck Neck exam: Present: normal inspection. Absent: lymphadenopathy, tenderness - Respiratory Respiratory exam: Present: CTAB. Absent: prolonged expiratory phase, rales, respiratory distress - Cardiovascular Cardiovascular exam: Present: RRR, +S1. Absent: diastolic murmur, gallop - GI/Abdominal GI/Abdominal exam: Present: normal bowel sounds. Absent: mass, organomegaly - Extremities Exam Extremities exam: Present: normal capillary refill. Absent: joint swelling, pedal edema - Back Exam Back exam: Present: normal inspection. Absent: CVA tenderness (L), CVA tenderness (R), muscle spasm, paraspinal tenderness - Neurological Exam Neurological exam: Present: alert, altered, CN II-XII intact - Psychiatric Psychiatric exam: Present: normal affect - Skin Skin exam: Present: normal color, pallor. Absent: petechiae, rash Consult Discharge Plan - Plan [facility]Primary Care Provider[facility] -
[2016-12-05] MEDS: Mirtazapine 15 MG TABLET PO SCH (20:17)
[2016-12-05] MEDS ORDERED: Mirtazapine 15 MG TABLET PO SCH (21:00)
[2016-12-06] MEDS: 0.9 % Sodium Chloride 1,000 ML IVC SCH ×2 (04:42→16:09)
[2016-12-06] MEDS: Pantoprazole 40 MG VIAL IVP SCH ×2 (04:42→16:30)
[2016-12-06 08:00] LABS: Hematocrit 28.9 % (37.5-50.1); Hemoglobin 9.1 g/dL (12.9-16.9); Mean Corpuscular HGB Conc 31.5 g/dL (31.6-35.5); Mean Corpuscular Hemoglobin 28.4 pg (28.0-33.3); Mean Corpuscular Volume 90.3 fL (83.0-100.0); Mean Platelet Volume 10.5 fL (9.4-12.4); Platelet Count 218 K/mcL (140-400); Red Cell Distribution Width 16.2 % (11.5-14.5)
[2016-12-06] MEDS: Nystatin SUSP 5 ML UD.LIQ PO SCH ×4 (08:06→20:47)
[2016-12-06] MEDS: Sucralfate 1 GM TABLET PO SCH ×4 (08:07→20:46)
[2016-12-06] MEDS: Megestrol Acetate 400 MG/10 ML UDC PO SCH ×2 (08:07→20:47)
--- NOTE | 2016-12-06 08:35 | Internal Med History&Physical ---
Date of Encounter: 12/06/16 Time of Encounter: 08:26 Assessment and Plan (1) GI bleed Current visit: Yes Status: Acute Qualifiers: GI bleed type/associated pathology: unspecified gastrointestinal hemorrhage type Qualified Code(s): K92.2 - Gastrointestinal hemorrhage, unspecified (2) Acute blood loss anemia Current visit: Yes Status: Acute (3) CAD (coronary artery disease) Current visit: Yes Status: Chronic Qualifiers: Coronary Disease-Associated Artery/Lesion type: unspecified vessel or lesion type [place] vs. transplanted heart: [place] heart Associated angina: angina presence unspecified Qualified Code(s): I25.10 - Atherosclerotic heart disease of [place] coronary artery without angina pectoris (4) Transaminitis Current visit: Yes Status: Acute (5) Non-Hodgkin lymphoma Current visit: Yes Status: Chronic Qualifiers: Non-Hodgkin lymphoma type: unspecified type Lymphoma site: unspecified region Qualified Code(s): C85.90 - Non-Hodgkin lymphoma, unspecified, unspecified site (6) Severe protein-calorie malnutrition Current visit: Yes Status: Acute (7) Depression Current visit: Yes Status: Acute Qualifiers: Depression Type: major depressive disorder Major depression recurrence: recurrent Active/Remission status: currently active Major depression episode severity: moderate Qualified Code(s): F33.1 - Major depressive disorder, recurrent, moderate Internal Medicine - H&P: HPI Chief complaint: GI bleed Admitted From: Home Plans for Post Hospital Care: Home History of present illness: M, Coronary artery disease status post CABG. Mr. Guerin is a 66 year old male who is transferred from intensive care unit this morning. He has history of NHL s/p first line therapy with bendamustine/rituximab and Rituximab maintenance. He was transferred to [facility] from [facility] due to cofee ground emesis and hypotension. Patient developed an episode of coffee ground emesis last friday, with recurrent episodes since then for which he underwent management with transfusion of blood products and endoscopy on and revealed scattered mild inflammation characterized by adherent blood, erythema and friability at the level of the duodenal bulb. The exam of the stomach was otherwise normal. It's documented that there was not evidence of of erythema or inlammatory changes sugestive of gastritis or inflammation in the gastric antrum. Biopsies were taken with a cold forceps for Helicobacter Pylori testing, and H. Pylori testing using CLOtest. . A medium size hernia was noticed , and severe esophagitis with not bleeding was found 45 cm from the incision to approximately [address] scan of the abdomen/pelvis/chest on 12/02 showed not abnormal/enlarge lymphatic nodes or other radiologic findings suggestive of relapse of NHL. He does not remember what type of NHL he had, but reports that he underwent repeated CT scans after completion of therapy with bendamustine, being told that there was not residual disease. He reports being in Rituximab maintenance, completed his last treatment in September 2016.Patient also had positive troponin while he was in ICU. Echocardiogram showed LV ejection fraction 65% with normal LV systolic function and mild diastolic dysfunction without any significant wall motion abnormality or valvular abnormality. Although it was thought that he had demand ischemia as his troponins were mildly elevated.. There is some concern that if he is very compliant with his treatment. Cardiology was consulted who added an echocardiogram showed normal EF without any wall motion abnormality or any significant valvular abnormality cardiology does not plan any further intervention in the light that demand ischemia secondary to hypotension and GI bleed. I will order lipid profile hemoglobin A1c for risk stratification. However cardiology has recommended not to start statins due to history of cirrhosis of liver. He has already been started on metoprolol and aspirin. Patient will be going for second EGD today for a biopsy. Patient was seen by psychiatry for his depression however he was not considered a candidate for inpatient psychiatric treatment. He also has protein calorie malnutrition for which a nutritional consult will be requested. Past Med Surg Social Fam HX - Past Medical History Medical history: non-contributory, cirrhosis, other (NHL) Psychiatric history: depression - Past Surgical History Surgical History: coronary bypass (CABG), other - Social History Smoking Status: Current some day smoker Smokeless Tobacco Status: No Alcohol use: none Drug use: none, marijuana (already quit) - Family History Son Race: Family Member Ethnicity: Non- Living Status: Still Living Internal Medicine - H&P: Meds Aspirin [Lo-Dose Aspirin EC] 81 mg PO DAILY 12/02/16 [History] Citalopram Hydrobromide [Celexa] 20 mg PO DAILY 12/02/16 [History] Ergocalciferol (VITAMIN D2) [Vitamin D2] 50,000 unit PO QWEEK 12/02/16 [History] Furosemide [Lasix] 20 mg PO DAILY 12/02/16 [History] Metoprolol [Lopressor] 50 mg PO BID 12/02/16 [History] Mirtazapine 7.5 mg PO DAILY 12/02/16 [History] Multivit-Min/FA/Lycopen/Lutein [A Thru Z Select Men 50+ Tablet] 1 tab PO DAILY 12/02/16 [History] Nitroglycerin [Nitrostat] 0.4 mg SL Q5M PRN 12/02/16 [History] Oxycodone HCl [Oxaydo] 5 mg PO TID PRN 12/02/16 [History] Potassium Chloride [K-Tab ER] 20 meq PO BID 12/02/16 [History] Rifaximin [Xifaxan] 550 mg PO BID 12/02/16 [History] Spironolactone [Aldactone] 50 mg PO DAILY 12/02/16 [History] Tamsulosin [Flomax] 0.4 mg PO DAILY 12/02/16 [History] 3 Allergy/AdvReac Type Severity Reaction Status Date / Time No Known Allergies Allergy Verified 12/02/16 10:38 All Systems PM: A 10-system review of systems was performed and is negative for pertinent findings except as documented above in the HPI. - Constitutional Constitutional: no chills, no fever(s), no night sweats - EENT Eyes: no change in vision, no discharge, no pain, no photophobia Ears: no ear discharge, no ear pain, no tinnitus Nose, mouth and throat: no dysphagia, no nasal discharge, no neck pain, no sore throat - Cardiovascular Cardiovascular ROS IM: no chest pain, no diaphoresis, no dyspnea, no lightheadedness, no palpitations, no syncope - Respiratory Respiratory: no cough, no dyspnea, no wheezing, no excessive phlegm production - Gastrointestinal Gastrointestinal: no abdominal pain, no diarrhea, no hematemesis, no hematochezia, no melena, no nausea, no vomiting - Musculoskeletal Musculoskeletal ROS IM: no numbness, no tingling - Integumentary Integumentary IM: no rash, no unusual bruising - Neurological Neurological ROS: no confusion, no convulsions, no focal weakness, no numbness, no tingling, no tremor(s) - Hematologic/Lymphatic Hematologic/Lymphatic: no easy bruising - Constitutional Vitals: Temp Pulse Resp BP Pulse Ox 98.2 F 65 16 116/61 95 12/06/16 07:48 12/06/16 08:23 12/06/16 08:23 12/06/16 07:48 12/06/16 08:23 - Head Head exam: Present: atraumatic, normocephalic - Eye Eye exam: Present: PERRL, conjuntiva pink, sclera anicteric Pupils: Present: PERRL - Neck Neck exam general surgery: Present: supple, trachea midline. Absent: lymphadenopathy - Respiratory Respiratory exam: Present: CTAB. Absent: accessory muscle use, rales, rhonchi, wheezes - Cardiovascular Cardiovascular exam: Present: RRR, +S1, +S2. Absent: diastolic murmur, gallop, rubs, systolic murmur - GI/Abdominal GI/Abdominal exam: Present: normal bowel sounds, soft, no peritoneal signs. Absent: distended, tenderness - Extremities Exam Extremities exam: Present: warm, radial pulses palpable and symmetrical. Absent : calf tenderness, cyanotic, pedal edema - Neurological Exam Neurological exam: Present: CN II-XII intact, oriented X3, no focal deficits. Absent: pronater drift, facial droop, speech deficit - Skin Skin exam: Present: dry, intact Internal Med - H&P Results - Labs CBC & Chem 7: 12/06/16 06:53 12/06/16 06:53 Labs: Short CBC 12/06/16 Range/Units 06:53 WBC 13.2 H (4.3-11.1) K/mcL Hgb 9.1 L (12.9-16.9) g/dL Hct 28.9 L (37.5-50.1) % Plt Count 218 (140-400) K/mcL - Impressions ITS Impressions Abdomen/Pelvis CT 12/02/16 17:04 Impression: 1. Edematous changes within the esophagus, stomach and small bowel. This may be related to third-spacing of fluid due to heart disease or poor nutritional status. Infectious or inflammatory process, although less likely, cannot be excluded. No evidence of obstruction. No findings to suggest etiology of the patient's GI bleed. 2. Diverticulosis with no acute features. 3. Moderate right and small left pleural effusion. Complete left lower lobe atelectasis. Mild dependent right basilar atelectasis. No acute pulmonary infiltrate. 4. No significant adenopathy within the chest, abdomen or pelvis. 5. Cholelithiasis with no acute features. 6. Small quantity of ascites of indeterminate etiology. 7. Moderate atherosclerotic changes in the aorta and coronary circulation. 2.9 cm aneurysmal dilatation of the infrarenal aorta. No follow-up imaging indicated. D/ /02/2016 19:39:12 Carlos Gaxiola MD / juvenal Interpreting Provider: Carlos Gaxiola MD Chest CT 12/02/16 17:04 Impression: 1. Edematous changes within the esophagus, stomach and small bowel. This may be related to third-spacing of fluid due to heart disease or poor nutritional status. Infectious or inflammatory process, although less likely, cannot be excluded. No evidence of obstruction. No findings to suggest etiology of the patient's GI bleed. 2. Diverticulosis with no acute features. 3. Moderate right and small left pleural effusion. Complete left lower lobe atelectasis. Mild dependent right basilar atelectasis. No acute pulmonary infiltrate. 4. No significant adenopathy within the chest, abdomen or pelvis. 5. Cholelithiasis with no acute features. 6. Small quantity of ascites of indeterminate etiology. 7. Moderate atherosclerotic changes in the aorta and coronary circulation. 2.9 cm aneurysmal dilatation of the infrarenal aorta. No follow-up imaging indicated. D/ /02/2016 19:39:12 Carlos Gaxiola MD / juvenal Interpreting Provider: Carlos Gaxiola MD - VTE Documentation of Mechanical Device: Intermittent pneumatic compression device
[2016-12-06 08:42] LABS: Monocytes # 1.1 K/mcL (0.0-1.3); Neutrophils # 12.1 K/mcL (1.6-8.9); Platelet Estimate Normal (Normal)
--- NOTE | 2016-12-06 09:06 | Cardiology Consult Note ---
Date of Encounter: 12/06/16 Time of Encounter: 09:00 (attempted to be seen multiple times, finally seen after EGD) Assessment and Plan (1) Acute blood loss anemia Current Visit: Yes Status: Acute Per Cardiology: Presents with acute blood loss anemia and acute hematemesis. Status post 2 units packed red blood cells during hospital stay. First EGD showed scattered mild inflammation characterized by adherent blood, erythema, and friability in the duodenal bulb and severe esophagitis with no bleeding. Patient seen today after second EGD during this hospitalization. Currently no active bleeding or blood loss noted. H&H currently stable. (2) Non-Hodgkin lymphoma Current Visit: Yes Status: Chronic Per Cardiology: Oncology following. Received 6 cycles of chemotherapy and currently on Rituximab for maintenance therapy. Qualifiers: Non-Hodgkin lymphoma type: unspecified type Lymphoma site: unspecified region Qualified Code(s): C85.90 - Non-Hodgkin lymphoma, unspecified, unspecified site (3) Elevated troponin Current Visit: Yes Status: Acute Per Cardiology: Denies CP currently. Hx of CAD/CABG. Troponins mildly elevated 0.28, 0.40, 0.50. Echo showed: LVEF 65%, Normal left ventricular diastolic function, Mildly dilated right ventricle with normal systolic function, No significant valvular dysfunction, Mild pulmonary hypertension. Suspect demand ischemia in setting of hypotension and acute blood loss anemia. No CR warranted. Patient with cirrhosis , Non-Hodgkin's lymphoma on chemotherapy, and in setting of acute blood loss anemia. No further workup warranted-- CP free, EF preserved, recent GI bleed, multiple comorbids. F/u with [facility] (currently establishing). Discussed with Dr. Rolan Ledbetter. On BB. Add asa if able. Will avoid statin for now d/t cirrhosis and elevated LFTs. Patient verbalized understanding and agreed with plan. (4) CAD (coronary artery disease) Current Visit: Yes Status: Chronic Per Cardiology: History of CAD with CABG. Qualifiers: Coronary Disease-Associated Artery/Lesion type: unspecified vessel or lesion type [place] vs. transplanted heart: [place] heart Associated angina: angina presence unspecified Qualified Code(s): I25.10 - Atherosclerotic heart disease of [place] coronary artery without angina pectoris (5) Hypotension Current Visit: Yes Status: Resolved Per Cardiology: Improved. Qualifiers: Hypotension type: other hypotension type Qualified Code(s): I95.89 - Other hypotension Discussion w patient/family: The assessment and plan as outlined above was discussed with the patient who expressed understanding and agreement. All questions were answered. Thank you for involving us in the care of your patient. Please call with any questions. History of Present Illness Consult date: 12/06/16 Requesting physician: Yovani Bryant Consult reason: Elevated Trop Chief complaint: Bleeding History of present illness: Mr. Guerin is a 66 year old male with a hx of CAD/CABG, Non-Hodgkin Lymphoma s/ p 6 cycles of chemotherapy and on maintenance on Rituximab, cirrhosis, depression, and hx of marijuana use. Cardiology consult for elevated troponin a few days ago. Previosu records reviewed: "He has history of NHL s/p first line therapy with bendamustine/rituximab and Rituximab maintenance. He was transferred to [facility] from [facility] due to cofee ground emesis and hypotension. Patient developed an episode of coffee ground emesis last friday, with recurrent episodes since then for which he underwent management with transfusion of blood products and endoscopy on 12/02/16 and revealed scattered mild inflammation characterized by adherent blood, erythema and friability at the level of the duodenal bulb". Patient seen today after repeat EGD. No family present. Patient somewhat somnolent. Denies any CP. Reports attempting to establish with [facility]. Denies any SOB, current CP, palps. Denies any concerns currently. Past Med Surg Social Fam HX - Past Medical History Attestation: Yes The following information was validated with the patient. Source: patient, old records reviewed Medical history: cirrhosis, coronary artery disease, other (NHL) Psychiatric history: depression - Past Surgical History Surgical History: coronary bypass (CABG), other - Social History Smoking Status: Current some day smoker Smokeless Tobacco Status: No Alcohol use: none Drug use: none, marijuana (already quit) - Family History Son Race: Family Member Ethnicity: Non- Living Status: Still Living Medications and Allergies Aspirin [Lo-Dose Aspirin EC] 81 mg PO DAILY 12/02/16 [History] Citalopram Hydrobromide [Celexa] 20 mg PO DAILY 12/02/16 [History] Ergocalciferol (VITAMIN D2) [Vitamin D2] 50,000 unit PO QWEEK 12/02/16 [History] Furosemide [Lasix] 20 mg PO DAILY 12/02/16 [History] Metoprolol [Lopressor] 50 mg PO BID 12/02/16 [History] Mirtazapine 7.5 mg PO DAILY 12/02/16 [History] Multivit-Min/FA/Lycopen/Lutein [A Thru Z Select Men 50+ Tablet] 1 tab PO DAILY 12/02/16 [History] Nitroglycerin [Nitrostat] 0.4 mg SL Q5M PRN 12/02/16 [History] Oxycodone HCl [Oxaydo] 5 mg PO TID PRN 12/02/16 [History] Potassium Chloride [K-Tab ER] 20 meq PO BID 12/02/16 [History] Rifaximin [Xifaxan] 550 mg PO BID 12/02/16 [History] Spironolactone [Aldactone] 50 mg PO DAILY 12/02/16 [History] Tamsulosin [Flomax] 0.4 mg PO DAILY 12/02/16 [History] 3 Allergy/AdvReac Type Severity Reaction Status Date / Time No Known Allergies Allergy Verified 12/02/16 10:38 ROS unobtainable: other (somehwat somnolent after EGD (sedation)) All Systems Review: A 10-system review of systems was performed and is negative for pertinent findings except as documented above in the HPI. - Cardiovascular Cardiovascular: as per HPI Physical Examination Vital Signs, Last 4 Hours Temp Pulse Resp BP Pulse Ox 12/06/16 08:23 65 16 95 12/06/16 08:13 70 12/06/16 07:48 98.2 F 73 18 116/61 95 12/06/16 05:08 70 Selected Entries 12/02/16 23:00 Blood Pressure 87/54 Results 12/06/16 06:53 12/06/16 06:53 Lab Results Laboratory Tests 12/02/16 12/02/16 12/02/16 11:48 11:48 18:45 WBC 14.6 H 16.1 H Hgb 6.9 L Hct 21.9 L Plt Count INR 1.1 AST ALT Alkaline Phosphatase Troponin I Albumin 12/02/16 12/03/16 12/03/16 18:45 00:31 04:11 WBC Hgb 9.3 L Hct 28.7 L Plt Count INR AST ALT Alkaline Phosphatase Troponin I 0.28 H* 0.40 H* Albumin 12/03/16 12/03/16 12/06/16 04:11 06:42 06:53 WBC 13.2 H Hgb 9.1 L Hct 28.9 L Plt Count 218 INR AST 102 H ALT 79 H Alkaline Phosphatase 274 H Troponin I 0.50 H* Albumin 1.8 L ITS Impressions Chest X-Ray 12/02/16 10:38 IMPRESSION: Right central venous catheter tip overlies the SVC, without pneumothorax. D/ / 12/02/2016 11:27:44 Brayan Greene MD / [facility] [place] Inter[place]ting Provider: Brayan Greene MD Abdomen/Pelvis CT 12/02/16 17:04 Impression: 1. Edematous changes within the esophagus, stomach and small bowel. This may be related to third-spacing of fluid due to heart disease or poor nutritional status. Infectious or inflammatory process, although less likely, cannot be excluded. No evidence of obstruction. No findings to suggest etiology of the patient's GI bleed. 2. Diverticulosis with no acute features. 3. Moderate right and small left pleural effusion. Complete left lower lobe atelectasis. Mild dependent right basilar atelectasis. No acute pulmonary infiltrate. 4. No significant adenopathy within the chest, abdomen or pelvis. 5. Cholelithiasis with no acute features. 6. Small quantity of ascites of indeterminate etiology. 7. Moderate atherosclerotic changes in the aorta and coronary circulation. 2.9 cm aneurysmal dilatation of the infrarenal aorta. No follow-up imaging indicated. D/ / 12/02/2016 19:39:12 Carlos Gaxiola MD / [facility] Interpreting Provider: Carlos Gaxiola MD Chest CT 12/02/16 17:04 Impression: 1. Edematous changes within the esophagus, stomach and small bowel. This may be related to third-spacing of fluid due to heart disease or poor nutritional status. Infectious or inflammatory process, although less likely, cannot be excluded. No evidence of obstruction. No findings to suggest etiology of the patient's GI bleed. 2. Diverticulosis with no acute features. 3. Moderate right and small left pleural effusion. Complete left lower lobe atelectasis. Mild dependent right basilar atelectasis. No acute pulmonary infiltrate. 4. No significant adenopathy within the chest, abdomen or pelvis. 5. Cholelithiasis with no acute features. 6. Small quantity of ascites of indeterminate etiology. 7. Moderate atherosclerotic changes in the aorta and coronary circulation. 2.9 cm aneurysmal dilatation of the infrarenal aorta. No follow-up imaging indicated. D/ / 12/02/2016 19:39:12 Carlos Gaxiola MD / [facility] Interpreting Provider: Carlos Gaxiola MD Intake & Output 12/03/16 12/04/16 12/05/16 12/06/16 23:59 23:59 23:59 23:59 Intake Total 370 / 370 220 / 220 1000 / 1000 1000 / 1000 Output Total 2275 / 2275 1000 / 1000 575 / 575 200 / 200 Balance -1905 / -1905 -780 / -780 425 / 425 800 / 800 Weight 64.5 kg 59.7 kg 61.4 kg 65.2 kg Active Medications Citalopram Hydrobromide (Celexa) 20 mg PO DAILY KAROL Stop: 06/04/17 09:01 Last Admin: 12/06/16 08:05 Dose: 20 mg Sodium Chloride (0.9 % Sodium Chloride) 1,000 mls @ 100 mls/hr IVC .Q10H KAROL Stop: 06/06/17 07:31 Last Admin: 12/06/16 04:42 Dose: 100 mls/hr Megestrol Acetate (Megace) 400 mg PO BID [facility] PRN Reason: Protocol Stop: 06/06/17 10:01 Last Admin: 12/06/16 08:07 Dose: 400 mg Metoprolol Tartrate (Lopressor) 50 mg PO BID KAROL Stop: 06/04/17 09:01 Last Admin: 12/06/16 08:07 Dose: 50 mg Mirtazapine (Remeron) 15 mg PO HS KAROL Stop: 06/06/17 21:01 Last Admin: 12/05/16 20:17 Dose: 15 mg Nystatin (Mycostatin Suspension) 5 ml PO QID [facility] Stop: 06/03/17 21:01 Last Admin: 12/06/16 08:06 Dose: 5 ml Pantoprazole Sodium (Protonix) 40 mg IVP Q12HR KAROL Stop: 06/04/17 18:01 Last Admin: 12/06/16 04:42 Dose: 40 mg Rifaximin (Xifaxan) 600 mg PO BID [facility] Stop: 06/06/17 21:01 Last Admin: 12/06/16 08:07 Dose: Not Given Spironolactone (Aldactone) 50 mg PO DAILY KAROL Stop: 06/07/17 09:01 Last Admin: 12/06/16 08:05 Dose: 50 mg Sucralfate (Carafate) 1 gm PO QIDAC [facility] Stop: 06/04/17 06:01 Last Admin: 12/06/16 08:07 Dose: 1 gm Tamsulosin HCl (Flomax) 0.4 mg PO HS [facility] Stop: 06/06/17 21:01 Last Admin: 12/05/16 20:16 Dose: Not Given - Imaging and Cardiology Chest Xray: report reviewed Echo: report reviewed - EKG Interpretation EKG results cardiology: personally reviewed (SR with nonspecific ST changes), other (SR 50's - 60's on tele.) Consult Discharge Plan - Plan [facility]: [facility] - 12/18/16 10:15 am
[2016-12-06 10:10] LABS: Alanine Aminotransferase 108 Units/L (0-55); Albumin/Globulin Ratio 0.8 (1.1-2.2); Alkaline Phosphatase 359 Units/L (38-126); Aspartate Amino Transferase 180 Units/L (5-34); BUN/Creatinine Ratio 23 (6-26); Bilirubin,Total 1.4 mg/dL (0.2-1.2); Blood Urea Nitrogen 14 mg/dL (8-26); Calcium 7.8 mg/dL (8.6-10.8); Carbon Dioxide 26 mEq/L (19-29); Chloride 106 mEq/L (98-109); Globulin 2.2 g/dL (2.4-3.5); Glucose 71 mg/dL (70-99); Osmolality,Calculated 287 (280-300); Potassium 2.8 mEq/L (3.5-4.5); Sodium 139 mEq/L (136-145); Total Protein 3.9 g/dL (6.0-8.3); eGFR For African Americans > 60 (> 60); eGFR For Non-African Americans > 60 (> 60)
[2016-12-06 10:12] LABS: Albumin 1.7 g/dL (3.5-5.0)
[2016-12-06] MEDS ORDERED: *HR* Midazolam HCl 5 MG/5 ML VIAL IVP ONE (11:39)
[2016-12-06] MEDS ORDERED: *HR* FentaNYL (PF) 100 MCG/2 ML VIAL ONE (11:40)
[2016-12-06] MEDS ORDERED: *HR* Promethazine 25 MG/ML VIAL ONE (11:40)
[2016-12-06] MEDS ORDERED: 0.9 % Sodium Chloride 1,000 ML IVC SCH (12:00)
[2016-12-06] MEDS ORDERED: Simethicone 40 MG/0.6 ML MLS IR ONE (12:25)
[2016-12-06] MEDS ORDERED: Tetracaine/Benzocaine/Butamben 200MG/SPRAY (100SPY/BOT) MM ONE (12:25)
[2016-12-06] MEDS: *HR* Midazolam HCl 5 MG/5 ML VIAL IVP PRN ×2 (12:30→12:31)
[2016-12-06] MEDS: *HR* FentaNYL (PF) 100 MCG/2 ML VIAL IVP PRN ×2 (12:30→12:31)
[2016-12-06] MEDS: Mirtazapine 15 MG TABLET PO SCH (20:47)
[2016-12-07] MEDS: 0.9 % Sodium Chloride 1,000 ML IVC SCH ×2 (05:25→21:52)
[2016-12-07] MEDS: Pantoprazole 40 MG VIAL IVP SCH ×2 (05:25→17:16)
[2016-12-07 05:38] LABS: Hematocrit 27.4 % (37.5-50.1); Hemoglobin 8.8 g/dL (12.9-16.9); Mean Corpuscular HGB Conc 32.1 g/dL (31.6-35.5); Mean Corpuscular Volume 90.4 fL (83.0-100.0); Mean Platelet Volume 10.4 fL (9.4-12.4); Platelet Count 217 K/mcL (140-400); Red Blood Count 3.03 M/mcL (4.19-5.50); Red Cell Distribution Width 16.2 % (11.5-14.5)
[2016-12-07 06:01] LABS: Eosinophils # 0.3 K/mcL (0.0-0.6); Large Platelets Present (Not Present); Lymphocytes # 1.4 K/mcL (0.6-4.6); Monocytes # 1.7 K/mcL (0.0-1.3); Neutrophils # 10.5 K/mcL (1.6-8.9); Platelet Estimate Normal (Normal)
[2016-12-07 06:02] LABS: Anisocytosis 1+ (Not Present); Reactive Lymphocytes Present (Not Present)
[2016-12-07 06:20] LABS: Alanine Aminotransferase 117 Units/L (0-55); Alkaline Phosphatase 383 Units/L (38-126); BUN/Creatinine Ratio 20 (6-26); Bilirubin,Total 0.9 mg/dL (0.2-1.2); Blood Urea Nitrogen 13 mg/dL (8-26); Calcium 7.5 mg/dL (8.6-10.8); Carbon Dioxide 24 mEq/L (19-29); Chloride 108 mEq/L (98-109); Chol/HDL Ratio 11.7 (0-4.9); Cholesterol 164 mg/dL (< 200); Glucose 105 mg/dL (70-99); HDL Cholesterol 14 mg/dL (40-59); LDL Cholesterol,Calculated 129 mg/dL (0-99); Osmolality,Calculated 286 (280-300); Potassium 2.9 mEq/L (3.5-4.5); Sodium 138 mEq/L (136-145); Total Protein 3.7 g/dL (6.0-8.3); Triglycerides 105 mg/dL (< 150); eGFR For African Americans > 60 (> 60); eGFR For Non-African Americans > 60 (> 60)
[2016-12-07 06:51] LABS: Aspartate Amino Transferase 195 Units/L (5-34)
[2016-12-07 07:36] LABS: Albumin 1.8 g/dL (3.5-5.0); Albumin/Globulin Ratio 0.9 (1.1-2.2); Globulin 1.9 g/dL (2.4-3.5)
[2016-12-07] MEDS ORDERED: Nitroglycerin 0.4 MG TAB.SUBL SL PRN (09:06)
[2016-12-07] MEDS ORDERED: Nitroglycerin 0.4 MG TAB.SUBL SL ONE (09:34)
--- NOTE | 2016-12-07 10:36 | Oncology Inp Progress Note ---
Date of Encounter: 12/07/16 Time of Encounter: 10:30 (1) Non-Hodgkin lymphoma Current Visit: Yes Status: Chronic Assessment and plan: History of NHL s/p approximately 6 cycles of Bendamustine/Rituximab with subsequent rituximab maintenance, completing therapy in last September. He reports being told that scans post therapy showed not residual disease, but is not sure of the exact time. CT chest/abdomen/pelvis completed on 12/02/16 showed no evidence of recurrence. Candidal esophagitis likely secondary to recent treatment. Will initiate diflucan Qualifiers: Non-Hodgkin lymphoma type: unspecified type Lymphoma site: unspecified region Qualified Code(s): C85.90 - Non-Hodgkin lymphoma, unspecified, unspecified site (2) Transaminitis Current Visit: Yes Status: Acute Assessment and plan: Have assessed HepB/C serologies. Given weight loss will also check LDH and HIV. No evidence of cirrhosis on imaging. Oncology: Subj Interval history: He feels poorly this AM. Still with chest pain and abdominal pain. No fever, chills or sweats Appetite poor. Weak. - Constitutional Vitals: Vital Signs Temp Pulse Resp BP Pulse Ox 12/07/16 08:46 98.1 F 64 18 113/71 94 12/07/16 03:42 98.2 F 61 16 109/58 93 12/07/16 00:22 97.8 F 68 16 126/74 96 12/06/16 19:18 97.8 F 91 16 99/64 94 12/06/16 16:15 56 18 116/69 97 12/06/16 15:55 97.4 F L 57 18 113/70 96 12/06/16 15:34 100/57 12/06/16 14:30 55 18 112/63 96 12/06/16 14:00 51 18 113/61 96 12/06/16 13:30 53 18 105/63 96 12/06/16 12:53 52 16 103/60 98 12/06/16 12:48 57 16 110/71 99 12/06/16 12:43 58 16 113/76 99 12/06/16 12:38 49 16 99/62 99 12/06/16 12:33 51 18 95/57 98 12/06/16 12:28 50 18 85/50 93 12/06/16 11:56 97.7 F 53 18 100/57 93 12/06/16 11:13 52 20 95 12/06/16 10:47 97.4 F L 49 20 101/55 95 Intake and Output 12/07/16 12/07/16 12/07/16 00:59 08:59 16:59 Intake Total 0 / 0 1000 / 1000 Output Total 0 / 0 275 / 275 Balance 0 / 0 725 / 725 Intake: IV Fluids 1000 / 1000 0.9 % Sodium Chloride 1, 1000 / 1000 000 ML @ 100 mls/hr IVC . Q10H KAROL Rx#:[id number] Oral 0 / 0 0 / 0 Output: Urine 0 / 0 275 / 275 Other: Stool Size Small Stool Consistency soft Stool Characteristics Normal for Patient Stool Color Green Weight 65.7 kg Patient Weight 12/08/16 00:59 Weight 65.7 kg - Head Head exam: Present: atraumatic, normal inspection, normocephalic - Eye Eye exam: Present: conjuntiva pink, sclera anicteric - ENT ENT exam: Present: normal exam, normal external ear exam, normal oropharynx - Neck Neck exam: Present: full ROM, normal inspection - Respiratory Respiratory exam: Present: decreased breath sounds, CTAB - Cardiovascular Cardiovascular exam: Present: RRR - GI/Abdominal GI/Abdominal exam: Present: normal bowel sounds, soft - Extremities Exam Extremities exam: Present: normal capillary refill, normal inspection - Skin Additional comments: [email or web address] Oncology: Obj Data - Labs CBC & Chem 7: 12/07/16 05:13 12/07/16 05:13 Labs: Laboratory Results - last 24 hr 12/07/16 12/07/16 12/07/16 05:13 05:13 09:35 WBC 13.8 H RBC 3.03 L Hgb 8.8 L Hct 27.4 L MCV 90.4 MCH 29.0 MCHC 32.1 RDW 16.2 H Plt Count 217 MPV 10.4 Seg Neutrophils % 72.0 Band Neutrophils % 4.0 Lymphocytes % 10.0 Monocytes % 12.0 Eosinophils % 2.0 Neutrophils # 10.5 H Lymphocytes # 1.4 Monocytes # 1.7 H Eosinophils # 0.3 Reactive Lymphocytes Present A Platelet Estimate Normal Large Platelets Present A Anisocytosis 1+ A Sodium 138 Potassium 2.9 L Chloride 108 Carbon Dioxide 24 BUN 13 Creatinine 0.64 L Est GFR ( Amer) > 60 Est GFR (Non-Af Amer) > 60 BUN/Creatinine Ratio 20 Glucose 105 H Calculated Osmolality 286 Calcium 7.5 L Total Bilirubin 0.9 AST 195 H ALT 117 H Alkaline Phosphatase 383 H Troponin I 0.34 H* Serum Total Protein 3.7 L Albumin 1.8 L Globulin 1.9 L Albumin/Globulin Ratio 0.9 L Triglycerides 105 Cholesterol 164 LDL Cholesterol, Calc 129 H VLDL Cholesterol, Calc 21 HDL Cholesterol 14 L Cholesterol/HDL Ratio 11.7 H - ABG Interpretation ABG results: PT/INR, D-dimer PT 11.7 Seconds (9.4-12.1) 12/02/16 11:48 Consult Discharge Plan - Plan Referrals: BAKARI,PCP [Primary Care Provider] - 12/18/16 10:15 am
[2016-12-07] MEDS: Sucralfate 1 GM TABLET PO SCH ×3 (11:40→21:51)
[2016-12-07] MEDS: Nystatin SUSP 5 ML UD.LIQ PO SCH ×4 (11:41→21:52)
[2016-12-07] MEDS: Megestrol Acetate 400 MG/10 ML UDC PO SCH ×2 (11:41→21:52)
[2016-12-07] MEDS: Fluconazole 200 MG/100 ML 200 MG/100 ML BAG IVPB SCH (11:50)
[2016-12-07 12:41] LABS: Hepatitis B Surface Antigen Nonreactive (Nonreactive)
[2016-12-07] MEDS ORDERED: Potassium Chloride 40 MEQ, Lidocaine 1% 2 ML in D5% in Water 500 ML IVPB ONE (16:02)
--- NOTE | 2016-12-07 18:03 | Internal Med Progress Note ---
Date of Encounter: 12/07/16 Time of Encounter: 18:02 - Assessment and plan (1) GI bleed Current Visit: Yes Status: Acute Qualifiers: GI bleed type/associated pathology: unspecified gastrointestinal hemorrhage type Qualified Code(s): K92.2 - Gastrointestinal hemorrhage, unspecified (2) Acute blood loss anemia Current Visit: Yes Status: Acute (3) CAD (coronary artery disease) Current Visit: Yes Status: Chronic Qualifiers: Coronary Disease-Associated Artery/Lesion type: unspecified vessel or lesion type [place] vs. transplanted heart: [place] heart Associated angina: angina presence unspecified Qualified Code(s): I25.10 - Atherosclerotic heart disease of [place] coronary artery without angina pectoris (4) Transaminitis Current Visit: Yes Status: Acute (5) Non-Hodgkin lymphoma Current Visit: Yes Status: Chronic Qualifiers: Non-Hodgkin lymphoma type: unspecified type Lymphoma site: unspecified region Qualified Code(s): C85.90 - Non-Hodgkin lymphoma, unspecified, unspecified site (6) Severe protein-calorie malnutrition Current Visit: Yes Status: Acute (7) Depression Current Visit: Yes Status: Acute Qualifiers: Depression Type: major depressive disorder Major depression recurrence: recurrent Active/Remission status: currently active Major depression episode severity: moderate Qualified Code(s): F33.1 - Major depressive disorder, recurrent, moderate - Subjective Interval history: M, Coronary artery disease status post CABG. Mr. Guerin is a 66 year old male who is transferred from intensive care unit this morning. He has history of NHL s/p first line therapy with bendamustine/rituximab and Rituximab maintenance. He was transferred to [facility] from [facility] due to cofee ground emesis and hypotension. Patient developed an episode of coffee ground emesis last friday, with recurrent episodes since then for which he underwent management with transfusion of blood products and endoscopy on and revealed scattered mild inflammation characterized by adherent blood, erythema and friability at the level of the duodenal bulb. The exam of the stomach was otherwise normal. It's documented that there was not evidence of of erythema or inlammatory changes sugestive of gastritis or inflammation in the gastric antrum. Biopsies were taken with a cold forceps for Helicobacter Pylori testing, and H. Pylori testing using CLOtest. . A medium size hernia was noticed, and severe esophagitis with not bleeding was found 45 cm from the incision to approximately 25 cm.Hemoglobin is stable so far CT scan of the abdomen/pelvis/chest on 12/02 showed not abnormal/enlarge lymphatic nodes or other radiologic findings suggestive of relapse of NHL. He does not remember what type of NHL he had, but reports that he underwent repeated CT scans after completion of therapy with bendamustine, being told that there was not residual disease. He reports being in Rituximab maintenance, completed his last treatment in September 2016. Patient has been complaining of recurrent chest pain. I repeated his EKG today as well as troponin they are not too different from previous ones and EKG did not show any ST changes. I will let Nitropaste for symptomatic relief. Patient also had positive troponin while he was in ICU. Echocardiogram showed LV ejection fraction 65% with normal LV systolic function and mild diastolic dysfunction without any significant wall motion abnormality or valvular abnormality. Although it was thought that he had demand ischemia as his troponins were mildly elevated.. There is some concern that if he is very compliant with his treatment. Cardiology was consulted who added an echocardiogram showed normal EF without any wall motion abnormality or any significant valvular abnormality cardiology does not plan any further intervention in the light that demand ischemia secondary to hypotension and GI bleed. I will order lipid profile hemoglobin A1c for risk stratification. However cardiology has recommended not to start statins due to history of cirrhosis of liver. He has already been started on metoprolol and aspirin. Patient will be going for second EGD today for a biopsy. Patient was seen by psychiatry for his depression however he was not considered a candidate for inpatient psychiatric treatment. He also has protein calorie malnutrition for which a nutritional consult will be requested. - Constitutional Vitals: Temp Pulse Resp BP Pulse Ox 97.6 F 63 18 107/68 95 12/07/16 16:48 12/07/16 16:48 12/07/16 16:48 12/07/16 16:48 12/07/16 16:48 - Head Head exam: Present: atraumatic, normocephalic - Eye Eye exam: Present: PERRL, conjuntiva pink, sclera anicteric Pupils: Present: PERRL - Neck Neck exam general surgery: Present: supple, trachea midline. Absent: lymphadenopathy - Respiratory Respiratory exam: Present: CTAB. Absent: accessory muscle use, rales, rhonchi, wheezes - Cardiovascular Cardiovascular exam: Present: RRR, +S1, +S2. Absent: diastolic murmur, gallop, rubs, systolic murmur - GI/Abdominal GI/Abdominal exam: Present: normal bowel sounds, soft, no peritoneal signs. Absent: distended, tenderness - Extremities Exam Extremities exam: Present: warm, radial pulses palpable and symmetrical. Absent : calf tenderness, cyanotic, pedal edema - Neurological Exam Neurological exam: Present: CN II-XII intact, oriented X3, no focal deficits. Absent: pronater drift, facial droop, speech deficit - Skin Skin exam: Present: dry, intact Internal Medicine: Result - Labs CBC & Chem 7: 12/07/16 05:13 12/07/16 05:13 Labs: Short CBC 12/07/16 Range/Units 05:13 WBC 13.8 H (4.3-11.1) K/mcL Hgb 8.8 L (12.9-16.9) g/dL Hct 27.4 L (37.5-50.1) % Plt Count 217 (140-400) K/mcL Neutrophils # 10.5 H (1.6-8.9) K/mcL BMP 12/07/16 05:13 Sodium 138 Potassium 2.9 L Chloride 108 Carbon Dioxide 24 BUN 13 Creatinine 0.64 L Glucose 105 H Calcium 7.5 L Cardiac Enzymes 12/07/16 12/07/16 Range/Units 09:35 13:20 Troponin I 0.34 H* 0.28 H* (0-0.03) ng/mL Liver Function 12/07/16 Range/Units 05:13 Total Bilirubin 0.9 (0.2-1.2) mg/dL AST 195 H (5-34) Units/L ALT 117 H (0-55) Units/L Alkaline Phosphatase 383 H (38-126) Units/L Albumin 1.8 L (3.5-5.0) g/dL - ABG Interpretation ABG results: PT/INR, D-dimer PT 11.7 Seconds (9.4-12.1) 12/02/16 11:48 - VTE Documentation of Mechanical Device: Intermittent pneumatic compression device Consult Discharge Plan - Plan [facility]errals: [facility] [Primary Care Provider[facility] - 12/18/16 10:15 am
[2016-12-07] MEDS: Nitroglycerin 1 INCH/GM PACKET TP SCH (18:37)
[2016-12-07] MEDS: Mirtazapine 15 MG TABLET PO SCH (21:52)
[2016-12-07] MEDS ORDERED: *HR* LORazepam 0.5 MG TABLET PO ONE (23:53)
[2016-12-08 05:12] LABS: Hematocrit 27.4 % (37.5-50.1); Hemoglobin 8.8 g/dL (12.9-16.9); Mean Corpuscular HGB Conc 32.1 g/dL (31.6-35.5); Mean Corpuscular Hemoglobin 28.9 pg (28.0-33.3); Mean Corpuscular Volume 89.8 fL (83.0-100.0); Mean Platelet Volume 10.6 fL (9.4-12.4); Platelet Count 213 K/mcL (140-400); Red Blood Count 3.05 M/mcL (4.19-5.50); Red Cell Distribution Width 16.6 % (11.5-14.5)
[2016-12-08 05:31] LABS: Alanine Aminotransferase 116 Units/L (0-55); Albumin/Globulin Ratio 0.7 (1.1-2.2); Alkaline Phosphatase 370 Units/L (38-126); Aspartate Amino Transferase 187 Units/L (5-34); BUN/Creatinine Ratio 17 (6-26); Blood Urea Nitrogen 10 mg/dL (8-26); Calcium 7.4 mg/dL (8.6-10.8); Carbon Dioxide 24 mEq/L (19-29); Chloride 108 mEq/L (98-109); Globulin 2.2 g/dL (2.4-3.5); Glucose 69 mg/dL (70-99); Osmolality,Calculated 283 (280-300); Sodium 138 mEq/L (136-145); Total Protein 3.8 g/dL (6.0-8.3); eGFR For African Americans > 60 (> 60); eGFR For Non-African Americans > 60 (> 60)
[2016-12-08] MEDS: Nitroglycerin 1 INCH/GM PACKET TP SCH ×2 (05:40→13:44)
[2016-12-08 05:45] LABS: Anisocytosis 1+ (Not Present); Lymphocytes # 0.3 K/mcL (0.6-4.6); Macrocytosis Present (Not Present); Microcytosis Present (Not Present); Monocytes # 0.8 K/mcL (0.0-1.3); Platelet Estimate Normal (Normal)
[2016-12-08] MEDS: Pantoprazole 40 MG VIAL IVP SCH ×2 (05:45→19:03)
[2016-12-08 05:50] LABS: Albumin 1.6 g/dL (3.5-5.0)
[2016-12-08] MEDS: Sucralfate 1 GM TABLET PO SCH ×4 (06:40→21:26)
[2016-12-08] MEDS ORDERED: Potassium Chloride 40 MEQ, Lidocaine 1% 2 ML in D5% in Water 500 ML IVPB ONE (07:55)
[2016-12-08] MEDS: 0.9 % Sodium Chloride 1,000 ML IVC SCH ×2 (08:00→23:28)
[2016-12-08] MEDS: Megestrol Acetate 400 MG/10 ML UDC PO SCH ×2 (09:57→21:26)
[2016-12-08] MEDS: Nystatin SUSP 5 ML UD.LIQ PO SCH ×4 (09:58→21:26)
[2016-12-08] MEDS: Fluconazole 200 MG/100 ML 200 MG/100 ML BAG IVPB SCH (09:59)
--- NOTE | 2016-12-08 15:33 | Internal Med Progress Note ---
Date of Encounter: 12/08/16 Time of Encounter: 15:30 - Assessment and plan (1) GI bleed Current Visit: Yes Status: Acute Qualifiers: GI bleed type/associated pathology: unspecified gastrointestinal hemorrhage type Qualified Code(s): K92.2 - Gastrointestinal hemorrhage, unspecified (2) Acute blood loss anemia Current Visit: Yes Status: Acute (3) CAD (coronary artery disease) Current Visit: Yes Status: Chronic Qualifiers: Coronary Disease-Associated Artery/Lesion type: unspecified vessel or lesion type [place] vs. transplanted heart: [place] heart Associated angina: angina presence unspecified Qualified Code(s): I25.10 - Atherosclerotic heart disease of [place] coronary artery without angina pectoris (4) Transaminitis Current Visit: Yes Status: Acute (5) Non-Hodgkin lymphoma Current Visit: Yes Status: Chronic Qualifiers: Non-Hodgkin lymphoma type: unspecified type Lymphoma site: unspecified region Qualified Code(s): C85.90 - Non-Hodgkin lymphoma, unspecified, unspecified site (6) Severe protein-calorie malnutrition Current Visit: Yes Status: Acute (7) Depression Current Visit: Yes Status: Acute Qualifiers: Depression Type: major depressive disorder Major depression recurrence: recurrent Active/Remission status: currently active Major depression episode severity: moderate Qualified Code(s): F33.1 - Major depressive disorder, recurrent, moderate - Subjective Interval history: M, Coronary artery disease status post CABG. Mr. Guerin is a 66 year old male who is transferred from intensive care unit this morning. He has history of NHL s/p first line therapy with bendamustine/rituximab and Rituximab maintenance. He was transferred to [facility] from [facility] due to cofee ground emesis and hypotension. Patient developed an episode of coffee ground emesis last friday, with recurrent episodes since then for which he underwent management with transfusion of blood products and endoscopy on and revealed scattered mild inflammation characterized by adherent blood, erythema and friability at the level of the duodenal bulb. The exam of the stomach was otherwise normal. It's documented that there was not evidence of of erythema or inlammatory changes sugestive of gastritis or inflammation in the gastric antrum. Biopsies were taken with a cold forceps for Helicobacter Pylori testing, and H. Pylori testing using CLOtest. . A medium size hernia was noticed, and severe esophagitis with not bleeding was found 45 cm from the incision to approximately 25 cm.Hemoglobin is stable so far CT scan of the abdomen/pelvis/chest on 12/02 showed not abnormal/enlarge lymphatic nodes or other radiologic findings suggestive of relapse of NHL. He does not remember what type of NHL he had, but reports that he underwent repeated CT scans after completion of therapy with bendamustine, being told that there was not residual disease. He reports being in Rituximab maintenance, completed his last treatment in September 2016. Patient has been complaining of recurrent chest pain. I repeated his EKG today as well as troponin they are not too different from previous ones and EKG did not show any ST changes. I will let Nitropaste for symptomatic relief. Patient also had positive troponin while he was in ICU. Echocardiogram showed LV ejection fraction 65% with normal LV systolic function and mild diastolic dysfunction without any significant wall motion abnormality or valvular abnormality. Although it was thought that he had demand ischemia as his troponins were mildly elevated.. There is some concern that if he is very compliant with his treatment. Cardiology was consulted who added an echocardiogram showed normal EF without any wall motion abnormality or any significant valvular abnormality cardiology does not plan any further intervention in the light that demand ischemia secondary to hypotension and GI bleed. I will order lipid profile hemoglobin A1c for risk stratification. However cardiology has recommended not to start statins due to history of cirrhosis of liver. He has already been started on metoprolol and aspirin. Patient will be going for second EGD today for a biopsy. Patient was seen by psychiatry for his depression however he was not considered a candidate for inpatient psychiatric treatment. He also has protein calorie malnutrition for which a nutritional consult will be requested. 12/08 patient is still not feeling well though denies any particular symptom. Appears diaphoretic. His LFTs are persistently elevated with alkaline phosphatase. Previously CT abdomen was done which showed a nodule and some gallstones. Only hepatitis BS antigen was checked which was negative. I will order full hepatitis profile as well as liver ultrasound to further evaluate. His white count is elevated with 6 bandemia. considering history of NHL this could be an insignificant finding. Chest pain has resolved as he is on Nitropaste and will be discharged on M Itzel. Hemoglobin remained stable and as noted above he had EGD showing esophagitis and duodenitis with pending biopsy. Patient has some difficulty in swallowing. Nurses are checking swallowing evaluation. Not ready to be discharged. He will return to [place] and perhaps will require custodial. - Constitutional Vitals: Temp Pulse Resp BP Pulse Ox 97.7 F 80 18 122/74 94 12/08/16 08:13 12/08/16 08:13 12/08/16 08:13 12/08/16 08:13 12/08/16 08:13 - Head Head exam: Present: atraumatic, normocephalic - Eye Eye exam: Present: PERRL, conjuntiva pink, sclera anicteric Pupils: Present: PERRL - Neck Neck exam general surgery: Present: supple, trachea midline. Absent: lymphadenopathy - Respiratory Respiratory exam: Present: CTAB. Absent: accessory muscle use, rales, rhonchi, wheezes - Cardiovascular Cardiovascular exam: Present: RRR, +S1, +S2. Absent: diastolic murmur, gallop, rubs, systolic murmur - GI/Abdominal GI/Abdominal exam: Present: normal bowel sounds, soft, no peritoneal signs. Absent: distended, tenderness - Extremities Exam Extremities exam: Present: warm, radial pulses palpable and symmetrical. Absent : calf tenderness, cyanotic, pedal edema - Neurological Exam Neurological exam: Present: CN II-XII intact, oriented X3, no focal deficits. Absent: pronater drift, facial droop, speech deficit - Skin Skin exam: Present: dry, intact Internal Medicine: Result - Labs CBC & Chem 7: 12/08/16 05:03 12/08/16 05:03 Labs: Short CBC 12/08/16 Range/Units 05:03 WBC 13.9 H (4.3-11.1) K/mcL Hgb 8.8 L (12.9-16.9) g/dL Hct 27.4 L (37.5-50.1) % Plt Count 213 (140-400) K/mcL Neutrophils # 12.0 H (1.6-8.9) K/mcL BMP 12/08/16 05:03 Sodium 138 Potassium 3.0 L Chloride 108 Carbon Dioxide 24 BUN 10 Creatinine 0.58 L Glucose 69 L Calcium 7.4 L Liver Function 12/08/16 Range/Units 05:03 Total Bilirubin 1.0 (0.2-1.2) mg/dL AST 187 H (5-34) Units/L ALT 116 H (0-55) Units/L Alkaline Phosphatase 370 H (38-126) Units/L Albumin 1.6 L (3.5-5.0) g/dL - ABG Interpretation ABG results: PT/INR, D-dimer PT 11.7 Seconds (9.4-12.1) 12/02/16 11:48 - VTE Documentation of Mechanical Device: Intermittent pneumatic compression device Consult Discharge Plan - Plan Referrals: BAKARI,PCP [Primary Care Provider] - 12/18/16 10:15 am
[2016-12-08] MEDS ORDERED: Acetaminophen 325 MG TABLET PO PRN (17:09)
[2016-12-08] MEDS: Mirtazapine 15 MG TABLET PO SCH (21:21)
[2016-12-09 06:06] LABS: Basophils # 0.1 K/mcL (0.0-0.2); Basophils % 0.7 %; Eosinophils # 0.1 K/mcL (0.0-0.6); Eosinophils % 0.8 %; Hematocrit 34.3 % (37.5-50.1); Immature Granulocytes % 9.3 % (0-4); Lymphocytes % 7.4 %; Mean Corpuscular HGB Conc 31.2 g/dL (31.6-35.5); Mean Corpuscular Hemoglobin 28.8 pg (28.0-33.3); Mean Corpuscular Volume 92.5 fL (83.0-100.0); Mean Platelet Volume 10.1 fL (9.4-12.4); Monocytes # 1.7 K/mcL (0.0-1.3); Monocytes % 12.4 %; Neutrophils # 9.2 K/mcL (1.6-8.9); Platelet Count 244 K/mcL (140-400); Red Blood Count 3.71 M/mcL (4.19-5.50); Red Cell Distribution Width 16.7 % (11.5-14.5); Segmented Neutrophils % 69.4 %
[2016-12-09] MEDS: Pantoprazole 40 MG VIAL IVP SCH ×2 (06:14→18:26)
[2016-12-09] MEDS: Nitroglycerin 1 INCH/GM PACKET TP SCH ×2 (06:14→12:57)
[2016-12-09 06:17] LABS: Alanine Aminotransferase 127 Units/L (0-55); Albumin 1.8 g/dL (3.5-5.0); Albumin/Globulin Ratio 0.7 (1.1-2.2); Alkaline Phosphatase 404 Units/L (38-126); Aspartate Amino Transferase 191 Units/L (5-34); BUN/Creatinine Ratio 15 (6-26); Bilirubin,Total 1.2 mg/dL (0.2-1.2); Blood Urea Nitrogen 8 mg/dL (8-26); Calcium 7.9 mg/dL (8.6-10.8); Carbon Dioxide 19 mEq/L (19-29); Chloride 110 mEq/L (98-109); Globulin 2.7 g/dL (2.4-3.5); Glucose 74 mg/dL (70-99); Hemoglobin 10.7 g/dL (12.9-16.9); Osmolality,Calculated 283 (280-300); Potassium 3.5 mEq/L (3.5-4.5); Sodium 138 mEq/L (136-145); Total Protein 4.5 g/dL (6.0-8.3); eGFR For African Americans > 60 (> 60); eGFR For Non-African Americans > 60 (> 60)
[2016-12-09 06:46] LABS: Platelet Estimate Normal (Normal); Toxic Granulation Present (Not Present)
[2016-12-09 06:47] LABS: Hypersegmented Neutrophils Present (Not Present)
[2016-12-09] MEDS: Nystatin SUSP 5 ML UD.LIQ PO SCH ×4 (09:47→23:14)
[2016-12-09] MEDS: Fluconazole 200 MG/100 ML 200 MG/100 ML BAG IVPB SCH (09:47)
[2016-12-09] MEDS: Megestrol Acetate 400 MG/10 ML UDC PO SCH ×2 (09:47→23:14)
[2016-12-09] MEDS: Sucralfate 1 GM TABLET PO SCH ×4 (10:01→23:14)
[2016-12-09 10:55] LABS: HIV-1&2 Antibody & p24 Ag Nonreactive (Nonreactive); Hepatitis A Antibody IgM Nonreactive (Nonreactive); Hepatitis B Core IgM Nonreactive (Nonreactive); Hepatitis C Virus Antibody Nonreactive (Nonreactive)
[2016-12-09] MEDS: 0.9 % Sodium Chloride 1,000 ML IVC SCH ×2 (11:23→23:14)
--- NOTE | 2016-12-09 18:50 | Internal Med Progress Note ---
Date of Encounter: 12/09/16 Time of Encounter: 18:45 - Assessment and plan (1) GI bleed Current Visit: Yes Status: Acute Qualifiers: GI bleed type/associated pathology: unspecified gastrointestinal hemorrhage type Qualified Code(s): K92.2 - Gastrointestinal hemorrhage, unspecified (2) Acute blood loss anemia Current Visit: Yes Status: Acute (3) CAD (coronary artery disease) Current Visit: Yes Status: Chronic Qualifiers: Coronary Disease-Associated Artery/Lesion type: unspecified vessel or lesion type [place] vs. transplanted heart: [place] heart Associated angina: angina presence unspecified Qualified Code(s): I25.10 - Atherosclerotic heart disease of [place] coronary artery without angina pectoris (4) Transaminitis Current Visit: Yes Status: Acute (5) Non-Hodgkin lymphoma Current Visit: Yes Status: Chronic Qualifiers: Non-Hodgkin lymphoma type: unspecified type Lymphoma site: unspecified region Qualified Code(s): C85.90 - Non-Hodgkin lymphoma, unspecified, unspecified site (6) Severe protein-calorie malnutrition Current Visit: Yes Status: Acute (7) Depression Current Visit: Yes Status: Acute Qualifiers: Depression Type: major depressive disorder Major depression recurrence: recurrent Active/Remission status: currently active Major depression episode severity: moderate Qualified Code(s): F33.1 - Major depressive disorder, recurrent, moderate - Subjective Interval history: M, Coronary artery disease status post CABG. Mr. Guerin is a 66 year old male who is transferred from intensive care unit this morning. He has history of NHL s/p first line therapy with bendamustine/rituximab and Rituximab maintenance. He was transferred to [facility] from [facility] due to cofee ground emesis and hypotension. Patient developed an episode of coffee ground emesis last friday, with recurrent episodes since then for which he underwent management with transfusion of blood products and endoscopy on and revealed scattered mild inflammation characterized by adherent blood, erythema and friability at the level of the duodenal bulb. The exam of the stomach was otherwise normal. It's documented that there was not evidence of of erythema or inlammatory changes sugestive of gastritis or inflammation in the gastric antrum. Biopsies were taken with a cold forceps for Helicobacter Pylori testing, and H. Pylori testing using CLOtest. . A medium size hernia was noticed, and severe esophagitis with not bleeding was found 45 cm from the incision to approximately 25 cm.Hemoglobin is stable so far CT scan of the abdomen/pelvis/chest on 12/02 showed not abnormal/enlarge lymphatic nodes or other radiologic findings suggestive of relapse of NHL. He does not remember what type of NHL he had, but reports that he underwent repeated CT scans after completion of therapy with bendamustine, being told that there was not residual disease. He reports being in Rituximab maintenance, completed his last treatment in September 2016. Patient has been complaining of recurrent chest pain. I repeated his EKG today as well as troponin they are not too different from previous ones and EKG did not show any ST changes. I will let Nitropaste for symptomatic relief. Patient also had positive troponin while he was in ICU. Echocardiogram showed LV ejection fraction 65% with normal LV systolic function and mild diastolic dysfunction without any significant wall motion abnormality or valvular abnormality. Although it was thought that he had demand ischemia as his troponins were mildly elevated.. There is some concern that if he is very compliant with his treatment. Cardiology was consulted who added an echocardiogram showed normal EF without any wall motion abnormality or any significant valvular abnormality cardiology does not plan any further intervention in the light that demand ischemia secondary to hypotension and GI bleed. I will order lipid profile hemoglobin A1c for risk stratification. However cardiology has recommended not to start statins due to history of cirrhosis of liver. He has already been started on metoprolol and aspirin. Patient will be going for second EGD today for a biopsy. Patient was seen by psychiatry for his depression however he was not considered a candidate for inpatient psychiatric treatment. He also has protein calorie malnutrition for which a nutritional consult will be requested. 12/08 patient is still not feeling well though denies any particular symptom. Appears diaphoretic. His LFTs are persistently elevated with alkaline phosphatase. Previously CT abdomen was done which showed a nodule and some gallstones. Only hepatitis BS antigen was checked which was negative. I will order full hepatitis profile as well as liver ultrasound to further evaluate. His white count is elevated with 6 bandemia. considering history of NHL this could be an insignificant finding. Chest pain has resolved as he is on Nitropaste and will be discharged on M Itzel. Hemoglobin remained stable and as noted above he had EGD showing esophagitis and duodenitis with pending biopsy. Patient has some difficulty in swallowing. Nurses are checking swallowing evaluation. Not ready to be discharged. He will return to [place] and perhaps will require alf. 12/09 Sayra is seen today. His ultrasound of abdomen noted which shows thickened gallbladder wall but no conclusive evidence of cholecystitis. Sonographic Mcelroy sign negative. An EKG he does have tenderness in right upper abdomen without any rebound. Despite antibiotics he continues to have low-grade leukocytosis is pretty much in the same range of 13,000 with worsening alkaline phosphatase and liver enzymes. I offered him 2 options one is to watch it at this point and we can [facility] jail and in case if it get worse and he can get [place] versus "go ahead and do a HIDA scan and get an ejection fraction of gallbladder. Patient chose to have a HIDA scan here. Potassium has improved and we will recheck it tomorrow along with CBC and HIDA scan ordered. It will be done tomorrow. I will check with cyanide case hardener and his [place] jail is not arrange yet. Otherwise his hemoglobin is stable at this point though he is still having some difficulty in swallowing due to esophagitis. Biopsies are pending. He is on Diflucan IV - Constitutional Vitals: Temp Pulse Resp BP Pulse Ox 97.6 F 85 14 124/82 97 12/09/16 15:19 12/09/16 15:19 12/09/16 15:19 12/09/16 15:19 12/09/16 15:19 - Head Head exam: Present: atraumatic, normocephalic - Eye Eye exam: Present: PERRL, conjuntiva pink, sclera anicteric Pupils: Present: PERRL - Neck Neck exam general surgery: Present: supple, trachea midline. Absent: lymphadenopathy - Respiratory Respiratory exam: Present: CTAB. Absent: accessory muscle use, rales, rhonchi, wheezes - Cardiovascular Cardiovascular exam: Present: RRR, +S1, +S2. Absent: diastolic murmur, gallop, rubs, systolic murmur - GI/Abdominal GI/Abdominal exam: Present: firm, normal bowel sounds, tenderness, no peritoneal signs. Absent: distended Additional comments: Abdomen is firm tenderness in right upper quadrant however Mcelroy's sign is negative no rebound tenderness bowel sounds sluggish no organomegaly - Extremities Exam Extremities exam: Present: warm, radial pulses palpable and symmetrical. Absent : calf tenderness, cyanotic, pedal edema - Neurological Exam Neurological exam: Present: CN II-XII intact, oriented X3, no focal deficits. Absent: pronater drift, facial droop, speech deficit - Skin Skin exam: Present: dry, intact Internal Medicine: Result - Labs CBC & Chem 7: 12/09/16 05:40 12/09/16 05:40 Labs: Short CBC 12/09/16 Range/Units 05:40 WBC 13.3 H (4.3-11.1) K/mcL Hgb 10.7 L D (12.9-16.9) g/dL Hct 34.3 L (37.5-50.1) % Plt Count 244 (140-400) K/mcL Neutrophils # 9.2 H (1.6-8.9) K/mcL BMP 12/09/16 05:40 Sodium 138 Potassium 3.5 Chloride 110 H Carbon Dioxide 19 BUN 8 Creatinine 0.55 L Glucose 74 Calcium 7.9 L Liver Function 12/09/16 Range/Units 05:40 Total Bilirubin 1.2 (0.2-1.2) mg/dL AST 191 H (5-34) Units/L ALT 127 H (0-55) Units/L Alkaline Phosphatase 404 H (38-126) Units/L Albumin 1.8 L (3.5-5.0) g/dL - ABG Interpretation ABG results: PT/INR, D-dimer PT 11.7 Seconds (9.4-12.1) 12/02/16 11:48 - Impressions Impressions Abdomen Ultrasound 12/09/16 08:00 IMPRESSION: 1. Small ascites. 2. Right pleural effusion. 3. Cholelithiasis. Mild gallbladder wall thickening without sonographic Mcelroy sign. The gallbladder wall thickening may be related to the cause of the ascites and pleural effusion. Cholecystitis is less likely given the absence of a sonographic Mcelroy sign. 4. Adenomyomatosis. D/ / Randy Telles MD / Randy Telles MD Interpreting Provider: Randy Telles MD - VTE Documentation of Mechanical Device: Intermittent pneumatic compression device Consult Discharge Plan - Plan Referrals: [facility],PCP [Primary Care Provider] - 12/18/16 10:15 am
--- NOTE | 2016-12-09 21:42 | Electrocardiograph Report ---
[place] [id number] Test Date: 2016-12-07 Pat Name: Felix Guerin Department: 115 Room: [facility] Gender: Investigations Director: [id number] : 1950 Requested By: Yovani Bryant Order Number: [id number] Reading MD: Russ Crowell MD Measurements Intervals [place] Rate: 62 P: 52 MD: 164 QRS: -23 QRSD: 117 T: 37 QT: 463 QTc: 468 Interpretive Statements SINUS RHYTHM Electronically Signed On 12-09-2016 21:41:30 EDT by Russ Crowell MD
[2016-12-09] MEDS: Mirtazapine 15 MG TABLET PO SCH (23:14)
[2016-12-10 09:07] LABS: Hematocrit 34.6 % (37.5-50.1); Mean Corpuscular HGB Conc 31.8 g/dL (31.6-35.5); Mean Corpuscular Hemoglobin 28.8 pg (28.0-33.3); Mean Corpuscular Volume 90.6 fL (83.0-100.0); Mean Platelet Volume 9.8 fL (9.4-12.4); Platelet Count 291 K/mcL (140-400); Red Blood Count 3.82 M/mcL (4.19-5.50); Red Cell Distribution Width 16.6 % (11.5-14.5)
[2016-12-10] MEDS: Pantoprazole 40 MG VIAL IVP SCH ×2 (09:26→17:52)
[2016-12-10] MEDS: Nitroglycerin 1 INCH/GM PACKET TP SCH ×2 (09:26→12:40)
[2016-12-10] MEDS: Sucralfate 1 GM TABLET PO SCH ×4 (09:27→21:28)
[2016-12-10] MEDS: Fluconazole 200 MG/100 ML 200 MG/100 ML BAG IVPB SCH (09:27)
[2016-12-10] MEDS: Nystatin SUSP 5 ML UD.LIQ PO SCH ×4 (09:28→21:28)
[2016-12-10] MEDS: Megestrol Acetate 400 MG/10 ML UDC PO SCH ×3 (09:28→21:28)
[2016-12-10 09:37] LABS: Alanine Aminotransferase 114 Units/L (0-55); Albumin/Globulin Ratio 0.7 (1.1-2.2); Alkaline Phosphatase 369 Units/L (38-126); Aspartate Amino Transferase 157 Units/L (5-34); BUN/Creatinine Ratio 13 (6-26); Bilirubin,Total 1.1 mg/dL (0.2-1.2); Blood Urea Nitrogen 8 mg/dL (8-26); Carbon Dioxide 19 mEq/L (19-29); Chloride 111 mEq/L (98-109); Globulin 2.6 g/dL (2.4-3.5); Glucose 79 mg/dL (70-99); Osmolality,Calculated 287 (280-300); Potassium 3.4 mEq/L (3.5-4.5); Sodium 140 mEq/L (136-145); Total Protein 4.5 g/dL (6.0-8.3); eGFR For African Americans > 60 (> 60); eGFR For Non-African Americans > 60 (> 60)
[2016-12-10 09:58] LABS: Albumin 1.9 g/dL (3.5-5.0)
[2016-12-10 10:09] LABS: Lymphocytes # 1.2 K/mcL (0.6-4.6); Monocytes # 1.2 K/mcL (0.0-1.3); Neutrophils # 17.7 K/mcL (1.6-8.9); Platelet Estimate Normal (Normal)
[2016-12-10] MEDS: 0.9 % Sodium Chloride 1,000 ML IVC SCH ×2 (13:36→23:49)
--- NOTE | 2016-12-10 14:45 | Internal Med Progress Note ---
Date of Encounter: 12/10/16 Time of Encounter: 09:10 - Assessment and plan (1) Transaminitis Current Visit: Yes Status: Acute Assessment and plan: Liver enzymes continued to remain elevated. Improving slowly. Viral serology has been negative. We will continue to monitor for now. Bilirubin levels are normal. (2) GI bleed Current Visit: Yes Status: Acute Assessment and plan: No further active bleeding. Blood counts have remained stable. EGD showed presence of gastritis, candidal esophagitis. Treat symptomatically. Qualifiers: GI bleed type/associated pathology: unspecified gastrointestinal hemorrhage type Qualified Code(s): K92.2 - Gastrointestinal hemorrhage, unspecified (3) Leukocytosis Current Visit: Yes Status: Acute Assessment and plan: Neutrophil predominant. We will look for any infectious causes. So far patient has not had any fever. Will check x-ray and urine. Could also be related to transaminitis and underlying Hodgkin's lymphoma. Moderate risk for complications Qualifiers: Leukocytosis type: other Qualified Code(s): D72.828 - Other elevated white blood cell count (4) Acute blood loss anemia Current Visit: Yes Status: Acute Assessment and plan: Blood counts have improved. Hemoglobin 11 today. (5) CAD (coronary artery disease) Current Visit: Yes Status: Chronic Assessment and plan: No chest pain at this time. Mild troponin elevation likely related to demand ischemia. On metoprolol. Aspirin on hold due to GI bleed. Also not on statin due to elevated liver enzymes. Qualifiers: Coronary Disease-Associated Artery/Lesion type: unspecified vessel or lesion type [place] vs. transplanted heart: [place] heart Associated angina: angina presence unspecified Qualified Code(s): I25.10 - Atherosclerotic heart disease of [place] coronary artery without angina pectoris (6) Depression Current Visit: Yes Status: Chronic Assessment and plan: Continue Remeron and Celexa Qualifiers: Depression Type: major depressive disorder Major depression recurrence: recurrent Active/Remission status: currently active Major depression episode severity: moderate Qualified Code(s): F33.1 - Major depressive disorder, recurrent, moderate (7) DVT prophylaxis Current Visit: Yes Status: Acute (8) Non-Hodgkin lymphoma Current Visit: Yes Status: Chronic Qualifiers: Non-Hodgkin lymphoma type: unspecified type Lymphoma site: unspecified region Qualified Code(s): C85.90 - Non-Hodgkin lymphoma, unspecified, unspecified site (9) Severe protein-calorie malnutrition Current Visit: Yes Status: Acute - Subjective Interval history: Patient is awake and alert. Denies any fever or chills. Has some pain in the right upper quadrant of the abdomen. No diarrhea or constipation. No hematemesis. - Constitutional Vitals: Temp Pulse Resp BP Pulse Ox 98.8 F 75 15 135/78 95 12/10/16 10:21 12/10/16 10:21 12/10/16 10:21 12/10/16 10:21 12/10/16 10:21 General appearance: Present: cooperative, A&O X 3, no acute distress, answers questions appropriately - Neck Neck exam general surgery: Present: supple, trachea midline. Absent: lymphadenopathy - Respiratory Respiratory exam: Present: CTAB. Absent: accessory muscle use, rales, rhonchi, wheezes - Cardiovascular Cardiovascular exam: Present: RRR, +S1, +S2. Absent: diastolic murmur, gallop, rubs, systolic murmur - GI/Abdominal GI/Abdominal exam: Present: normal bowel sounds, soft, tenderness (Mild right upper quadrant tenderness), no peritoneal signs. Absent: distended - Extremities Exam Extremities exam: Present: warm, radial pulses palpable and symmetrical. Absent : calf tenderness, cyanotic, pedal edema - Neurological Exam Neurological exam: Present: alert, oriented X3, no focal deficits. Absent: facial droop, speech deficit - Skin Skin exam: Present: dry, intact, pallor Internal Medicine: Result - Labs CBC & Chem 7: 12/10/16 08:30 12/10/16 08:30 Labs: Short CBC 12/10/16 Range/Units 08:30 WBC 20.1 H D (4.3-11.1) K/mcL Hgb 11.0 L (12.9-16.9) g/dL Hct 34.6 L (37.5-50.1) % Plt Count 291 (140-400) K/mcL Neutrophils # 17.7 H (1.6-8.9) K/mcL BMP 12/10/16 08:30 Sodium 140 Potassium 3.4 L Chloride 111 H Carbon Dioxide 19 BUN 8 Creatinine 0.62 L Glucose 79 Calcium 8.0 L Liver Function 12/10/16 Range/Units 08:30 Total Bilirubin 1.1 (0.2-1.2) mg/dL AST 157 H (5-34) Units/L ALT 114 H (0-55) Units/L Alkaline Phosphatase 369 H (38-126) Units/L Albumin 1.9 L (3.5-5.0) g/dL - ABG Interpretation ABG results: PT/INR, D-dimer PT 11.7 Seconds (9.4-12.1) 12/02/16 11:48 - Impressions Impressions Liver Scan Nuclear Medicine 12/10/16 06:00 IMPRESSION: 1. No evidence of acute cholecystitis. 2. Gallbladder ejection fraction is 100%. D/ / Randy Telles MD / Randy Telles MD Interpreting Provider: Randy Telles MD - VTE Documentation of Mechanical Device: Intermittent pneumatic compression device Consult Discharge Plan - Plan Referrals: [facility] [Primary Care Provider] - 12/18/16 10:15 am
--- NOTE | 2016-12-10 15:12 | Electrocardiograph Report ---
[place] [employer] Test Date: 2016-12-02 Pat Name: Felix Guerin Department: 105 Room: 3A53 Gender: Feature Writer: : 1950 Requested By: Ignacio Whipple Order Number: [id number] Reading MD: Gabriela Bella DO Measurements Intervals [place] Rate: 136 P: AR: 0 QRS: 52 QRSD: 97 T: -89 QT: 226 QTc: 305 Interpretive Statements ATRIAL FLUTTER/TACHYCARDIA WITH RAPID VENTRICULAR RESPONSE ST DEVIATION AND MODERATE T-WAVE ABNORMALITY, CONSIDER INFERIOR ISCHEMIA [-0.1+ mV T WAVE IN II/aVF] Electronically Signed On 12-10-2016 15:10:38 EDT by Gabriela Bella DO
[2016-12-10 18:13] LABS: Bilirubin,Urine Negative (Negative); Blood,Urine Negative (Negative); Clarity,Urine Cloudy (Clear); Color,Urine Dark Yellow (Yellow); Glucose,Urine (UA) Normal (Normal); Ketones,Urine Trace mg/dL (Negative); Leukocyte Esterase,Urine Negative (Negative); Nitrite,Urine Negative (Negative); PH,Urine 5.5 pH Units (5.0-8.0); Protein,Urine Negative (Neg-Trace); Specific Gravity,Urine 1.016 (1.010-1.025); Urobilinogen,Urine Normal (Normal)
[2016-12-10 18:17] LABS: RBC,Urine 0-3 per hpf (0-3); Squamous Epithelial Cell,Urine Moderate per lpf (None-Few); WBC,Urine 0-3 per hpf (0-3)
[2016-12-10 18:49] LABS: Bacteria,Urine Few per hpf (None-Few); Hyaline Casts,Urine Few per lpf (None-Few)
[2016-12-10] MEDS: Mirtazapine 15 MG TABLET PO SCH (21:28)
[2016-12-11] MEDS: Pantoprazole 40 MG VIAL IVP SCH ×2 (06:27→17:01)
[2016-12-11] MEDS: Nitroglycerin 1 INCH/GM PACKET TP SCH ×2 (06:27→12:16)
[2016-12-11 07:01] LABS: Hematocrit 28.9 % (37.5-50.1); Mean Corpuscular HGB Conc 31.5 g/dL (31.6-35.5); Mean Corpuscular Hemoglobin 28.9 pg (28.0-33.3); Mean Corpuscular Volume 91.7 fL (83.0-100.0); Platelet Count 296 K/mcL (140-400); Red Blood Count 3.15 M/mcL (4.19-5.50); Red Cell Distribution Width 16.7 % (11.5-14.5)
[2016-12-11 07:34] LABS: Alanine Aminotransferase 98 Units/L (0-55); Albumin 1.7 g/dL (3.5-5.0); Albumin/Globulin Ratio 0.7 (1.1-2.2); Alkaline Phosphatase 335 Units/L (38-126); Aspartate Amino Transferase 133 Units/L (5-34); BUN/Creatinine Ratio 14 (6-26); Bilirubin,Total 1.1 mg/dL (0.2-1.2); Blood Urea Nitrogen 8 mg/dL (8-26); Carbon Dioxide 19 mEq/L (19-29); Chloride 112 mEq/L (98-109); Globulin 2.6 g/dL (2.4-3.5); Glucose 74 mg/dL (70-99); Osmolality,Calculated 287 (280-300); Potassium 3.1 mEq/L (3.5-4.5); Sodium 140 mEq/L (136-145); Total Protein 4.3 g/dL (6.0-8.3); eGFR For African Americans > 60 (> 60); eGFR For Non-African Americans > 60 (> 60)
[2016-12-11 07:49] LABS: Hemoglobin 9.1 g/dL (12.9-16.9)
--- NOTE | 2016-12-11 08:22 | Oncology Inp Progress Note ---
Date of Encounter: 12/11/16 Time of Encounter: 07:05 (1) Non-Hodgkin lymphoma Current Visit: Yes Status: Chronic Assessment and plan: History of NHL s/p approximately 6 cycles of Bendamustine/Rituximab with subsequent rituximab maintenance, completing therapy in last September. He reports being told that scans post therapy showed not residual disease, but is not sure of the exact time. CT chest/abdomen/pelvis completed on 12/02/16 showed no evidence of recurrence. Leukocytosis unrelated to NHL Will establish care in our office in 2 weeks. We will otherwise sign off. Please call with questions. Qualifiers: Non-Hodgkin lymphoma type: unspecified type Lymphoma site: unspecified region Qualified Code(s): C85.90 - Non-Hodgkin lymphoma, unspecified, unspecified site (2) Transaminitis Current Visit: Yes Status: Acute Assessment and plan: Hepatitis serologies negative. Biopsy obtained 2 months ago. Will attempt to obtain results today. No evidence of cirrhosis on imaging. HIDA normal. Oncology: Subj Interval history: He is feeling better. Still very weak and debilitated. Rehabilitation is pending at the [facility]. He was noted to be discharged home and then go to the [facility] for rehabilitation. No fever chills or symptoms of infection. His chest pain has resolved. He is eating a bit better. We are currently awaiting records from his oncologist in [place]. His office has been contacted again. In addition, the joint appeared to have a liver biopsy 2 months ago. We will attempt to obtain nose results as well. - Constitutional Vitals: Vital Signs Temp Pulse Resp BP Pulse Ox 12/11/16 03:30 97.5 F L 72 14 138/84 94 12/10/16 20:15 97.9 F 91 15 125/82 95 12/10/16 14:56 97.9 F 78 15 138/78 94 12/10/16 10:21 98.8 F 75 15 135/78 95 12/10/16 09:00 95 Intake and Output 12/10/16 12/11/16 12/11/16 16:59 00:59 08:59 Intake Total 1200 / 1200 1000 / 1000 0 / 0 Output Total 750 / 750 0 / 0 Balance 450 / 450 1000 / 1000 0 / 0 Intake: IV Fluids 1000 / 1000 1000 / 1000 0.9 % Sodium Chloride 1,000 ML 1000 / 1000 1000 / 1000 @ 100 mls/hr IVC .Q10H KAROL Rx#: [id number] Oral 200 / 200 0 / 0 0 / 0 Output: Urine 750 / 750 0 / 0 Other: Meal Breakfast Percent of Meal Consumed 60% Stool Size Small Stool Consistency loose formed Stool Color Brown # Bowel Movements 1 - Head Head exam: Present: atraumatic, normal inspection, normocephalic Additional comments: Muscle wasting - Eye Eye exam: Present: normal appearance, conjuntiva pink, sclera anicteric - ENT ENT exam: Present: mucous membranes moist, normal exam - Neck Neck exam: Present: full ROM, normal inspection - Respiratory Respiratory exam: Present: decreased breath sounds, rales - Cardiovascular Cardiovascular exam: Present: RRR - GI/Abdominal GI/Abdominal exam: Present: normal bowel sounds - Extremities Exam Extremities exam: Present: normal inspection - Neurological Exam Neurological exam: Present: alert, CN II-XII intact, oriented X3 Oncology: Obj Data - Labs CBC & Chem 7: 12/11/16 04:51 12/11/16 04:10 Labs: Laboratory Results - last 24 hr 12/10/16 12/10/16 12/10/16 08:30 08:30 18:00 WBC 20.1 H D RBC 3.82 L Hgb 11.0 L Hct 34.6 L MCV 90.6 MCH 28.8 MCHC 31.8 RDW 16.6 H Plt Count 291 MPV 9.8 Seg Neutrophils % 88.0 Lymphocytes % 6.0 Monocytes % 6.0 Neutrophils # 17.7 H Lymphocytes # 1.2 Monocytes # 1.2 Platelet Estimate Normal Sodium 140 Potassium 3.4 L Chloride 111 H Carbon Dioxide 19 BUN 8 Creatinine 0.62 L Est GFR ( Amer) > 60 Est GFR (Non-Af Amer) > 60 BUN/Creatinine Ratio 13 Glucose 79 Calculated Osmolality 287 Calcium 8.0 L Total Bilirubin 1.1 AST 157 H ALT 114 H Alkaline Phosphatase 369 H Serum Total Protein 4.5 L Albumin 1.9 L Globulin 2.6 Albumin/Globulin Ratio 0.7 L Urine Color Dark Yellow Urine Clarity Cloudy A Urine pH 5.5 Ur Specific [place] 1.016 Urine Protein Negative Urine Glucose (UA) Normal Urine Ketones Trace H Urine Blood Negative Urine Nitrite Negative Urine Bilirubin Negative Urine Urobilinogen Normal Ur Leukocyte Esterase Negative Urine Microscopic RBC 0-3 Urine Microscopic WBC 0-3 Ur Squamous Epith Cells Moderate H Urine Bacteria Few Hyaline Casts Few Ur Culture Indicated? NO 12/11/16 12/11/16 04:10 04:51 WBC 22.4 H RBC 3.15 L Hgb 9.1 L D Hct 28.9 L MCV 91.7 MCH 28.9 MCHC 31.5 L RDW 16.7 H Plt Count 296 MPV 10.0 Seg Neutrophils % Lymphocytes % Monocytes % Neutrophils # Lymphocytes # Monocytes # Platelet Estimate Sodium 140 Potassium 3.1 L Chloride 112 H Carbon Dioxide 19 BUN 8 Creatinine 0.57 L Est GFR ( Amer) > 60 Est GFR (Non-Af Amer) > 60 BUN/Creatinine Ratio 14 Glucose 74 Calculated Osmolality 287 Calcium 8.0 L Total Bilirubin 1.1 AST 133 H ALT 98 H Alkaline Phosphatase 335 H Serum Total Protein 4.3 L Albumin 1.7 L Globulin 2.6 Albumin/Globulin Ratio 0.7 L Urine Color Urine Clarity Urine pH Ur Specific [place] Urine Protein Urine Glucose (UA) Urine Ketones Urine Blood Urine Nitrite Urine Bilirubin Urine Urobilinogen Ur Leukocyte Esterase Urine Microscopic RBC Urine Microscopic WBC Ur Squamous Epith Cells Urine Bacteria Hyaline Casts Ur Culture Indicated? - Impressions Impressions Chest X-Ray 12/10/16 14:40 IMPRESSION: Right pleural effusion and bibasilar atelectasis D/ / Marco Villa MD / Marco Villa MD Interpreting Provider: Marco Villa MD - Imaging and cardiology Chest x-ray Additional comments: SINGLE VIEW OF THE CHEST 12/10/2016 2:59 pm COMPARISON: 12/02/2016 HISTORY: ORDERING SYSTEM PROVIDED HISTORY: Leukocystosis concern for pneumonia Uncertain chronicity. Initial exam FINDINGS: The cardiomediastinal silhouette is within normal limits and there is no evidence for pulmonary edema. The right internal jugular central line is been removed. There is bibasilar atelectasis and right pleural effusion. There is an old posterolateral right 6th rib fracture. XR/XR chest 1V IMPRESSION: Right pleural effusion and bibasilar atelectasis - ABG Interpretation ABG results: PT/INR, D-dimer PT 11.7 Seconds (9.4-12.1) 12/02/16 11:48 Consult Discharge Plan - Plan Referrals: BAKARI,PCP [Primary Care Provider] - 12/18/16 10:15 am
[2016-12-11 08:42] LABS: Lymphocytes # 0.9 K/mcL (0.6-4.6); Monocytes # 0.5 K/mcL (0.0-1.3); Neutrophils # 21.1 K/mcL (1.6-8.9)
[2016-12-11 08:43] LABS: Platelet Estimate Normal (Normal)
[2016-12-11] MEDS: 0.9 % Sodium Chloride 1,000 ML IVC SCH ×3 (09:56→17:45)
[2016-12-11] MEDS: Fluconazole 200 MG/100 ML 200 MG/100 ML BAG IVPB SCH (09:56)
[2016-12-11] MEDS: Sucralfate 1 GM TABLET PO SCH ×4 (09:57→21:37)
[2016-12-11] MEDS: Megestrol Acetate 400 MG/10 ML UDC PO SCH ×2 (09:58→21:38)
[2016-12-11] MEDS: Nystatin SUSP 5 ML UD.LIQ PO SCH ×4 (09:58→21:38)
[2016-12-11] MEDS ORDERED: CefTRIAXone 2,000 MG VIAL ONE (16:54)
--- NOTE | 2016-12-11 17:39 | Internal Med Progress Note ---
Date of Encounter: 12/11/16 Time of Encounter: 17:35 - Assessment and plan (1) Leukocytosis Current Visit: Yes Status: Acute Assessment and plan: Uncertain etiology. Concern for SBP. Consulted IR for possible paracentesis but patient does not appear to have enough ascites fluid for safe paracentesis. We will treat empirically with ceftriaxone. Monitor blood counts. Chest x- ray did not show any infiltrates. Urinalysis also showed no signs of UTI. Moderate risk for complications. Qualifiers: Leukocytosis type: other Qualified Code(s): D72.828 - Other elevated white blood cell count (2) Transaminitis Current Visit: Yes Status: Acute Assessment and plan: Improved. Could be related to chronic liver fibrosis. Ultrasound of the abdomen did not show features of severe cirrhosis but patient had biopsy done prior which did show some fibrosis. Viral serologies were negative. HIDA scan also negative for chronic cholecystitis. (3) GI bleed Current Visit: Yes Status: Acute Assessment and plan: No new episodes of hematemesis or melena. Hemoglobin 9.1 today. Could be dilutional decrease compared to yesterday. We will stop IV fluids. Gastric biopsy does not show any fungal organisms. Was also negative for intestinal metaplasia. He did have fibroinflammatory exudate.On PPI Qualifiers: GI bleed type/associated pathology: unspecified gastrointestinal hemorrhage type Qualified Code(s): K92.2 - Gastrointestinal hemorrhage, unspecified (4) Acute blood loss anemia Current Visit: Yes Status: Acute Assessment and plan: Hemoglobin levels at 9.1 today. Likely dilutional decrease as patient was receiving IV fluids. We will stop IV fluids. Monitor blood counts. (5) CAD (coronary artery disease) Current Visit: Yes Status: Chronic Assessment and plan: No chest pain. Aspirin on hold due to recent GI bleed. The blood counts remain stable will consider resuming aspirin. Qualifiers: Coronary Disease-Associated Artery/Lesion type: unspecified vessel or lesion type [place] vs. transplanted heart: [place] heart Associated angina: angina presence unspecified Qualified Code(s): I25.10 - Atherosclerotic heart disease of [place] coronary artery without angina pectoris (6) Depression Current Visit: Yes Status: Chronic Assessment and plan: Continue citalopram Qualifiers: Depression Type: major depressive disorder Major depression recurrence: recurrent Active/Remission status: currently active Major depression episode severity: moderate Qualified Code(s): F33.1 - Major depressive disorder, recurrent, moderate (7) DVT prophylaxis Current Visit: Yes Status: Acute (8) Non-Hodgkin lymphoma Current Visit: Yes Status: Chronic Assessment and plan: Does not appear to have relapse per oncology evaluation. Qualifiers: Non-Hodgkin lymphoma type: unspecified type Lymphoma site: unspecified region Qualified Code(s): C85.90 - Non-Hodgkin lymphoma, unspecified, unspecified site (9) Severe protein-calorie malnutrition Current Visit: Yes Status: Acute Assessment and plan: Patient continues to have low albumin levels. Nutrition following. Encouraged oral diet and appetite. Is also on Megace. - Subjective Interval history: Patient seen earlier this morning. Was awake and alert. Answers questions appropriately. In the interim patient up and became confused this afternoon. He had been nothing by mouth since midnight while awaiting paracentesis. We evaluated him just now. He is now back to his baseline. Awake and oriented. Answers questions appropriately again. Denies any complaints at this time. He remembers that he participated with physical therapy earlier this morning. Discuss CODE STATUS with him. He had previously been DNR. However he wishes to change it and wants to be resuscitated for 1 cycle of CPR. - Constitutional Vitals: Temp Pulse Resp BP Pulse Ox 97.4 F L 73 18 150/86 96 12/11/16 14:57 12/11/16 14:57 12/11/16 14:57 12/11/16 14:57 12/11/16 14:57 General appearance: Present: cooperative, A&O X 3, no acute distress, answers questions appropriately - Eye Eye exam: Present: EOMI, PERRL, conjuntiva pink, sclera anicteric - Neck Neck exam general surgery: Present: supple, trachea midline. Absent: lymphadenopathy - Respiratory Respiratory exam: Present: CTAB. Absent: accessory muscle use, rales, rhonchi, wheezes - Cardiovascular Cardiovascular exam: Present: RRR, +S1, +S2. Absent: diastolic murmur, gallop, rubs, systolic murmur - GI/Abdominal GI/Abdominal exam: Present: normal bowel sounds, soft, no peritoneal signs. Absent: distended, tenderness - Extremities Exam Extremities exam: Present: warm, radial pulses palpable and symmetrical. Absent : calf tenderness, cyanotic, pedal edema Internal Medicine: Result - Labs CBC & Chem 7: 09/20/17 04:51 12/11/16 04:10 Labs: Short CBC 12/11/16 Range/Units 04:51 WBC 22.4 H (4.3-11.1) K/mcL Hgb 9.1 L D (12.9-16.9) g/dL Hct 28.9 L (37.5-50.1) % Plt Count 296 (140-400) K/mcL Neutrophils # 21.1 H (1.6-8.9) K/mcL BMP 12/11/16 04:10 Sodium 140 Potassium 3.1 L Chloride 112 H Carbon Dioxide 19 BUN 8 Creatinine 0.57 L Glucose 74 Calcium 8.0 L Liver Function 12/11/16 Range/Units 04:10 Total Bilirubin 1.1 (0.2-1.2) mg/dL AST 133 H (5-34) Units/L ALT 98 H (0-55) Units/L Alkaline Phosphatase 335 H (38-126) Units/L Albumin 1.7 L (3.5-5.0) g/dL Urine 12/10/16 Range/Units 18:00 Urine Color Dark Yellow (Yellow) Urine Clarity Cloudy A (Clear) Urine pH 5.5 (5.0-8.0) pH Units Ur Specific [place] 1.016 (1.010-1.025) Urine Protein Negative (Neg-Trace) mg/dL Urine Glucose (UA) Normal (Normal) mg/dL - ABG Interpretation ABG results: PT/INR, D-dimer PT 11.7 Seconds (9.4-12.1) 12/02/16 11:48 - Impressions Impressions Head CT 12/11/16 15:20 IMPRESSION: 1. No acute intracranial abnormality. 2. Chronic small vessel ischemic disease. D/ / Luis Bernabe MD / Luis Bernabe MD Interpreting Provider: Luis Bernabe MD - VTE Documentation of Mechanical Device: Intermittent pneumatic compression device Consult Discharge Plan - Plan [facility]errals: [facility] [[facility] Care Provider[facility] - 12/18/16 10:15 am
[2016-12-11] MEDS: Mirtazapine 15 MG TABLET PO SCH (21:39)
[2016-12-12 04:37] VITALS: BP 149/81
[2016-12-12 05:27] LABS: Hematocrit 33.4 % (37.5-50.1); Hemoglobin 10.5 g/dL (12.9-16.9); Mean Corpuscular HGB Conc 31.4 g/dL (31.6-35.5); Mean Corpuscular Hemoglobin 29.2 pg (28.0-33.3); Platelet Count 312 K/mcL (140-400); Red Blood Count 3.59 M/mcL (4.19-5.50); Red Cell Distribution Width 16.8 % (11.5-14.5)
[2016-12-12 05:46] LABS: BUN/Creatinine Ratio 12 (6-26); Blood Urea Nitrogen 7 mg/dL (8-26); Calcium 8.3 mg/dL (8.6-10.8); Carbon Dioxide 18 mEq/L (19-29); Chloride 112 mEq/L (98-109); Glucose 71 mg/dL (70-99); Osmolality,Calculated 286 (280-300); Sodium 140 mEq/L (136-145); eGFR For African Americans > 60 (> 60); eGFR For Non-African Americans > 60 (> 60)
[2016-12-12] MEDS: Nitroglycerin 1 INCH/GM PACKET TP SCH ×2 (06:04→12:38)
[2016-12-12] MEDS: Pantoprazole 40 MG VIAL IVP SCH (06:04)
[2016-12-12 06:21] LABS: Lymphocytes # 1.4 K/mcL (0.6-4.6); Monocytes # 0.4 K/mcL (0.0-1.3); Neutrophils # 15.1 K/mcL (1.6-8.9); Platelet Estimate Normal (Normal)
[2016-12-12 06:22] LABS: Anisocytosis 1+ (Not Present)
[2016-12-12] MEDS: Sucralfate 1 GM TABLET PO SCH ×2 (08:25→12:37)
[2016-12-12] MEDS: Megestrol Acetate 400 MG/10 ML UDC PO SCH (08:25)
[2016-12-12] MEDS: Nystatin SUSP 5 ML UD.LIQ PO SCH ×2 (08:26→12:38)
[2016-12-12] MEDS ORDERED: Fluconazole 100 MG TABLET PO SCH (09:00)
--- NOTE | 2016-12-12 11:24 | Discharge Summary ---
Date of Encounter: 12/14/16 Time of Encounter: 13:19 - Discharge Diagnosis (1) GI bleed Priority: Primary Status: Acute Qualifiers: GI bleed type/associated pathology: unspecified gastrointestinal hemorrhage type Qualified Code(s): K92.2 - Gastrointestinal hemorrhage, unspecified (2) Leukocytosis Priority: Secondary Status: Acute Qualifiers: Leukocytosis type: other Qualified Code(s): D72.828 - Other elevated white blood cell count (3) Transaminitis Priority: Secondary Status: Acute (4) Acute blood loss anemia Priority: Secondary Status: Acute (5) CAD (coronary artery disease) Priority: Secondary Status: Chronic Qualifiers: Coronary Disease-Associated Artery/Lesion type: unspecified vessel or lesion type [place] vs. transplanted heart: [place] heart Associated angina: angina presence unspecified Qualified Code(s): I25.10 - Atherosclerotic heart disease of [place] coronary artery without angina pectoris (6) Depression Priority: Secondary Status: Chronic Qualifiers: Depression Type: major depressive disorder Major depression recurrence: recurrent Active/Remission status: currently active Major depression episode severity: moderate Qualified Code(s): F33.1 - Major depressive disorder, recurrent, moderate (7) DVT prophylaxis Priority: Secondary Status: Acute (8) Non-Hodgkin lymphoma Priority: Secondary Status: Chronic Qualifiers: Non-Hodgkin lymphoma type: unspecified type Lymphoma site: unspecified region Qualified Code(s): C85.90 - Non-Hodgkin lymphoma, unspecified, unspecified site (9) Severe protein-calorie malnutrition Priority: Secondary Status: Acute (10) Candidiasis of esophagus Priority: Secondary Status: Acute (11) Spontaneous bacterial peritonitis Priority: Secondary Status: Suspected - Discharge Medications Prescriptions: cefTRIAXone [Rocephin] 1,000 mg IVPB DAILY #12 vial Omeprazole [PriLOSEC] 20 mg PO BIDAC #60 cap Home Medications: Citalopram Hydrobromide [Celexa] 20 mg PO DAILY 12/02/16 [History] Ergocalciferol (VITAMIN D2) [Vitamin D2] 50,000 unit PO QWEEK 12/02/16 [History] Furosemide [Lasix] 20 mg PO DAILY 12/02/16 [History] Metoprolol [Lopressor] 50 mg PO BID 12/02/16 [History] Mirtazapine 7.5 mg PO DAILY 12/02/16 [History] Multivit-Min/FA/Lycopen/Lutein [A Thru Z Select Men 50+ Tablet] 1 tab PO DAILY 12/02/16 [History] Nitroglycerin [Nitrostat] 0.4 mg SL Q5M PRN 12/02/16 [History] Oxycodone HCl [Oxaydo] 5 mg PO TID PRN 12/02/16 [History] Potassium Chloride [K-Tab ER] 20 meq PO BID 12/02/16 [History] Rifaximin [Xifaxan] 550 mg PO BID 12/02/16 [History] Spironolactone [Aldactone] 50 mg PO DAILY 12/02/16 [History] Tamsulosin [Flomax] 0.4 mg PO DAILY 12/02/16 [History] Fluconazole [Diflucan] 200 mg PO DAILY tablet 12/12/16 [Rx] GuaiFENesin/Dextromethorphan [Robitussin/Dm] 10 ml PO Q6HR PRN udc 12/12/16 [Rx ] Megestrol Acetate [Megace] 400 mg PO BID udc 12/12/16 [Rx] Omeprazole [PriLOSEC] 20 mg PO BIDAC #60 cap 12/12/16 [Rx] Sucralfate [Carafate] 1 gm PO QIDAC tablet 12/12/16 [Rx] cefTRIAXone [Rocephin] 1,000 mg IVPB DAILY #12 vial 12/12/16 [Rx] Allergies/Adverse Reactions: 3 Allergy/AdvReac Type Severity Reaction Status Date / Time No Known Allergies Allergy Verified 12/02/16 10:38 Procedures/tests Complete & Pending: Procedures Performed prior 72 hours Category Date Time Status CT head/brain wo con [CT] Stat Cat Scan 12/11/16 15:20 Completed IR US abdomen limited [IR] Routine Exams 12/11/16 Taken NM hepatobiliary w drug [NM] Stat Exams 12/10/16 06:00 Completed Date of admission: 12/02/16 12:37 [facility] physician: [facility] Consults: 12/03/16 07:39 Consult to Oncology Hematology [CONS] Routine Consulting Provider: Danika Mcleod Reason for Consult: GI bleed with lymphoma Call Completed: Yes 12/04/16 08:40 Consult to Parts Room Associate [CONS] Routine Reason for SW Consult: Patient is severely malnourished. Possible need to go to residential facility. 12/04/16 09:22 Consult to Physical Therapy [CONS] Routine Comment: Evaluate, develop and implement POC Reason for Consult: Patient is severely malnutritioned. Will likely be discharged with residential. 12/04/16 12:36 Consult to Psychiatry [CONS] Routine Consulting Provider: Psychiatry Diamond Reason for Consult: son requests bc pt is depressed and won't eat. Time Notified: 12:38 Call Completed: Yes 12/05/16 08:53 OT [Consult to Occupational Therapy] [CONS] Routine Comment: Evaluate, develop and implement POC Reason for Consult: severe malnutrition, weak 12/06/16 08:35 Consult to Nutrition [CONS] Routine Comment: poor nutritional intake Consulting Provider: NUTRITION Reason for Dietary Consult: PO Supplementation 12/06/16 08:39 Consult to Cardiology [CONS] Routine Comment: Consulting Provider: Cardiology Diamond Reason for Consult: Coronary artery disease positive troponin Time Notified: 08:40 Call Completed: No 12/07/16 11:36 Consult to Speech Therapy [CONS] Stat Comment: Evaluate, develop and implement POC Reason for Consult: difficulty swallowing meals and medications Call Completed: No - Patient Status Disposition: Transfer [facility] Condition: Fair Functional capacity at discharge: wheelchair bound Overall status at discharge: patient is progressing back to baseline - Discharge Instructions Instructions: Anemia (GEN) Follow Up With: Sharon Iyer MD [Partnered Physician] - 02/12/17 1:00 pm (PLease arrange for an earlier appointment) [facility] [Primary Care Provider] - 12/18/16 10:15 am Shahram Anderson MD [Partnered Physician] - (in 2-3 weeks for cirrhosis Web Request entered. Office will call with appt. Thank you) - Diet and Activity Activity: as per physical therapy Diet: low fat, low cholesterol, low salt diet Hospital course: Mr. Guerin is a 66 year old male patient with a history of cirrhosis, non- Hodgkin's lymphoma which has been in remission who was hospitalized here initially to the ICU with acute upper GI bleed and hypotension. He had been having episodes of dark-colored emesis and complained of lightheadedness and hypotension. He was fluid resuscitated and PRBC transfusion he had recently moved to this area from [place]. He underwent urgent upper GI endoscopy which showed severe esophagitis, duodenitis. He was started on treatment for this with Carafate, PPI and antifungal agents for possible candidal esophagitis. Oncology was consulted for their recommendations as initial CT scan of the abdomen and pelvis showed enlarged lymph nodes concerning for relapse of his disease. Oncology had tried to obtain records from his oncologist and will follow up with him as outpatient for further evaluation. At this time they do not believe that the patient is in any relapse. Patient has been depressed and also had poor appetite. Psychiatric was consulted. Per the recommendations patient's dosage of Remeron was increased. Cardiology had been consulted during patient's hospitalization as he had a troponin elevation to 0.5. This was believed to be due to demand ischemia. Patient underwent 2-D echocardiogram here which showed an EF of 65% with no wall motion abnormalities. Patient was transferred out from the ICU to the floor on 12/06. Liver enzymes did trend upwards after he was transferred to the floor. He was worked up for this with liver ultrasound and HIDA scan which did not show any acute gallbladder issues. His liver enzymes have been trending down since then. He did develop leukocytosis. Chest x-ray did not show any infiltrates. Urinalysis was negative for any signs of infection. He did have some ascites fluid and abdominal pain and so he was started on treatment for possible spontaneous bacterial peritonitis. A paracentesis was recommended but patient did not have enough ascites fluid on ultrasound and so this was not done. His leukocytosis has now improved and so he will be empirically treated for SBP with Rocephin. He has now been accepted for transfer to the [facility] for continued management and care. He will then be transitioned to rehabilitation Continue fluconazole for 10 more days. Continue Rocephin for 12 more days; may de-escalate to oral antibiotics if patient's condition continues to improve - Time Spent with Patient Total time spent providing and/or coordinating discharge services: Greater than 30 minutes (50 min) - Constitutional Vitals: Temp Pulse Resp BP Pulse Ox 97.9 F 84 14 149/81 96 12/12/16 04:25 12/12/16 09:28 12/12/16 09:28 12/12/16 09:28 12/12/16 09:28 General appearance: Present: cooperative, A&O X 3, no acute distress, underweight, answers questions appropriately - Neck Neck exam general surgery: Present: supple, trachea midline. Absent: lymphadenopathy - Respiratory Respiratory exam: Present: CTAB. Absent: accessory muscle use, rales, rhonchi, wheezes - Cardiovascular Cardiovascular exam: Present: RRR, +S1, +S2. Absent: diastolic murmur, gallop, rubs, systolic murmur - GI/Abdominal GI/Abdominal exam: Present: normal bowel sounds, soft, no peritoneal signs. Absent: distended, tenderness - Extremities Exam Extremities exam: Present: warm, radial pulses palpable and symmetrical. Absent : calf tenderness, cyanotic, pedal edema - Neurological Exam Neurological exam: Present: alert, oriented X3, no focal deficits. Absent: facial droop, speech deficit - Skin Skin exam: Present: pallor - VTE Documentation of Mechanical Device: Intermittent pneumatic compression device
--- NOTE | 2016-12-12 14:57 | Physician Discharge Referral ---
[facility] Referral Info Provider in Charge after Transfer: PCP Institutional Level of Care: Skilled - Diagnosis (1) GI bleed Priority: Primary Status: Acute (2) Leukocytosis Priority: Secondary Status: Acute (3) Transaminitis Priority: Secondary Status: Acute (4) Acute blood loss anemia Priority: Secondary Status: Acute (5) CAD (coronary artery disease) Priority: Secondary Status: Chronic (6) Depression Priority: Secondary Status: Chronic (7) DVT prophylaxis Priority: Secondary Status: Acute (8) Non-Hodgkin lymphoma Priority: Secondary Status: Chronic (9) Severe protein-calorie malnutrition Priority: Secondary Status: Acute (10) Candidiasis of esophagus Priority: Secondary Status: Acute (11) Spontaneous bacterial peritonitis Priority: Secondary Status: Suspected Prognosis: Fair Aware of Diagnosis: Patient, Family Aware of Prognosis: Patient, Family - Transfer Medications Prescriptions: cefTRIAXone [Rocephin] 1,000 mg IVPB DAILY #12 vial Omeprazole [PriLOSEC] 20 mg PO BIDAC #60 cap Home Medications: Citalopram Hydrobromide [Celexa] 20 mg PO DAILY 12/02/16 [History] Ergocalciferol (VITAMIN D2) [Vitamin D2] 50,000 unit PO QWEEK 12/02/16 [History] Furosemide [Lasix] 20 mg PO DAILY 12/02/16 [History] Metoprolol [Lopressor] 50 mg PO BID 12/02/16 [History] Mirtazapine 7.5 mg PO DAILY 12/02/16 [History] Multivit-Min/FA/Lycopen/Lutein [A Thru Z Select Men 50+ Tablet] 1 tab PO DAILY 12/02/16 [History] Nitroglycerin [Nitrostat] 0.4 mg SL Q5M PRN 12/02/16 [History] Oxycodone HCl [Oxaydo] 5 mg PO TID PRN 12/02/16 [History] Potassium Chloride [K-Tab ER] 20 meq PO BID 12/02/16 [History] Rifaximin [Xifaxan] 550 mg PO BID 12/02/16 [History] Spironolactone [Aldactone] 50 mg PO DAILY 12/02/16 [History] Tamsulosin [Flomax] 0.4 mg PO DAILY 12/02/16 [History] Fluconazole [Diflucan] 200 mg PO DAILY tablet 12/12/16 [Rx] GuaiFENesin/Dextromethorphan [Robitussin/Dm] 10 ml PO Q6HR PRN udc 12/12/16 [Rx ] Megestrol Acetate [Megace] 400 mg PO BID udc 12/12/16 [Rx] Omeprazole [PriLOSEC] 20 mg PO BIDAC #60 cap 12/12/16 [Rx] Sucralfate [Carafate] 1 gm PO QIDAC tablet 12/12/16 [Rx] cefTRIAXone [Rocephin] 1,000 mg IVPB DAILY #12 vial 12/12/16 [Rx] Allergies/Adverse Reactions: 3 Allergy/AdvReac Type Severity Reaction Status Date / Time No Known Allergies Allergy Verified 12/02/16 10:38 - Respiratory Orders Smoking Cessation: Smoking cessation has been advised. For more information, call the [place] Tobacco Quit Line at 9-109-RNRQ-NOW. - Lab Orders Lab Orders: Other (include drug levels w/frequency) (CBC, BMP daily for the next 2 days) - Advance Directives Code Status: Full Code (For 1 cycle of CPR) - Mobility Orders Ambulate (per PT) - Rehabiliation Orders Rehab Potential: Fair Rehab Orders: Evaluation for Physical Therapy, Evaluation for Occupational Therapy, Evaluation for Speech Therapy - Diet Orders Pureed (ENsure with Meals TID) CERTIFICATION: I certify that the transfer of the above named patient to an Extended Care Facility is necessary for the continuing treatment of the diagnosis listed. The above information is true and accurate reflection of patient's current condition. Confidential - Redisclosure prohibited without a patient's written consent.
== END 2016-12-12 15:10 | DRG 377 ==
LOC: EMEROO 10:16 → ICNU 12:37 → SUATTDRO 12:37 → ICNU 12:53 → 2NNU 12-06 04:25 → 3ANU 12-06 19:01
PROVIDERS: ADMIT Internal Medicine Pulmonary Disease; ATTEND Internal Medicine
PROC: ENDOEBX (2016-12-02 15:00)